=== PATIENT | female | born 1995 | race Caucasian/White ===

== ENCOUNTER → 2020-06-03 | Day surgery (SDC) | payer OTHER ==
[2020-06-02 13:09] LABS: Hematocrit 18.7 % (36.0-45.0)
--- OUTSIDE RECORDS SUMMARY | 2020-06-03 08:31 | XMS REPORT | Clinical Summary ---
:1995 Author Organization [facility] Address [address] [place] [address] Care Team Providers Name Role Phone Celina Barragan MD Primary Care Provider [phone] Allergies No Known Allergies Medications Medication Sig Dispensed Refills Start Date End Date Status predniSONE (DELTASONE) Take 10 mg by 0 Active 10 mg tablet mouth daily. ramipril (ALTACE) 5 MG Take 5 mg by 0 Active capsule mouth daily. aspirin (ECOTRIN) 81 MG Take 81 mg by 0 Active enteric coated tablet mouth daily. esomeprazole (NexIUM) 20 Take 20 mg by 0 Active MG capsule mouth daily before breakfast. carvedilol (COREG) 3.125 Take 3.125 mg by 0 Active MG tablet mouth 2 (two) times a day with meals. hydroxychloroquine Take 200 mg by 0 Active (PLAQUENIL) 200 mg mouth daily. tablet mirtazapine (REMERON) 15 Take 15 mg by 0 Active MG tablet mouth nightly. For appetite stimulation Active Problems Problem Noted Date Dialysis AV fistula malfunction, subsequent encounter 05/12/2019 Overview: Added automatically from request for jony rafi [id number] Swelling of joint of upper arm, left 05/08/2019 Overview: Added automatically from request for jony rafi [id number] End-stage renal disease 01/21/2019 Overview: Added automatically from request for jony rafi [id number] Pre-transplant evaluation for kidney transplant 2018 Lupus (systemic lupus erythematosus) 01/01/2019 Encounters Date Type Specialty Care Team Description 12/29/2019 Documentation Transplant Vi Rivas RN 12/29/2019 Telephone Transplant Tanika Metz Kidney Eval Status (09:02am Called pt to se e is she wanted to move forward with kidney eval. Meliton reid stated her Cardiologis t at [facility] told her to hol d off on kidney eval sin ce she is having issues w ith her heart. ) after 06/03/2019 Immunizations Name Administration Dates Next Due Pneumococcal Conjugate 13-Valent 05/11/2019 Family History Medical History Relation Name Comments Hypertension Father Other Father Relation Name Status Comments Father Alive Mother Alive Social History Tobacco Use Types Packs/Day Years Used Date Never Smoker Smokeless Tobacco: Never Used Alcohol Use Drinks/Week oz/Week Comments No Alcohol Habits Answer Date Recorded How often do you have a drink containing alcohol? Never 02/02/2019 How many drinks containing alcohol do you have on a typical Not asked day when you are drinking? How often do you have six or more drinks on one occasion? No t asked Sex Assigned at Date Recorded Not on file Job Start Date Occupation Industry Not on file Not on file Not on file Travel History Travel Start Travel End No recent travel history available. Last Filed Vital Signs Not on file Plan of Treatment Health Maintenance Due Date Last Done Comments CHLAMYDIA SCREENING 2013 INFLUENZA VACCINE 05/27/2020 07/16/2017, 2016, 2011, Additional history exists CERVICAL CANCER SCREENING 04/06/2022 04/06/2019, 01/19/2019 Results Not on fileafter 06/03/2019 Insurance Payer Benefit Plan / Subscriber ID Effective Dates Phone Addre ss Type Group MEDICAID MEDICAID xxxxxxxxx 2017-Present Me dicaid MEDICARE MEDICARE PART A xxxxxxxxxxx 2016-Present [facility], [place] Medicare AND B Ashley Lewis Transplant Self 1995 [id number] (Home) [place] [id number] Advance Directives For more information, please contact: [phone] Type Date 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
--- OUTSIDE RECORDS SUMMARY | 2020-06-03 08:32 | XMS REPORT | Clinical Summary ---
:1995 Author Organization [facility] Address [address] [place] [address] Care Team Providers Name Role Phone Unavailable Primary Care Provider Unavailable Allergies No Known Allergies Medications Medication Sig Dispensed Refills Start Date End Date Status aspirin 81 MG EC tablet Take 81 mg by 0 Active mouth daily. azaTHIOprine (IMURAN) 50 Take 50 mg by 0 Active mg tablet mouth daily. bumetanide (BUMEX) 2 MG Take 2 mg by 0 Active tablet mouth 2 (two) times daily. carvedilol (COREG) 6.25 Take 6.25 mg by 0 Active MG tablet mouth 2 (two) times daily with breakfast and dinner. FA-vit Take by mouth. 0 Activ e Bcomp&M-zsoujavk-popy (FOLIC ACID-VITAMIN B COMPLEX-VITAMIN [id number]) 3-70-15 mg-mcg-mg Tab docusate sodium (COLACE) Take 100 mg by 0 Active 100 MG capsule mouth 2 (two) times daily. lisinopril Take 2.5 mg by 0 Acti ve (PRINIVIL,ZESTRIL) 2.5 MG mouth daily. tablet hydroxychloroquine Take by mouth 0 Active (PLAQUENIL) 200 mg tablet daily. meloxicam (MOBIC) 15 MG Take 15 mg by 0 Active tablet mouth daily. mycophenolate (CELLCEPT) Take by mouth 2 0 Active 250 mg capsule (two) times daily. prednisoLONE (PEDIAPRED) Take 1 mg/kg by 0 Active 5 mg/5 mL syrup mouth daily. lansoprazole (PREVACID) Take 15 mg by 0 Active 15 MG capsule mouth 2 (two) times daily. ranitidine (ZANTAC) 150 Take 150 mg by 0 Active MG capsule mouth 2 (two) times daily. sevelamer (RENVELA) 800 Take 800 mg by 0 Active mg tablet mouth 3 (three) times daily with meals. Active Problems Not on file Social History Tobacco Use Types Packs/Day Years Used Date Never Smoker Sex Assigned at Date Recorded Not on file Job Start Date Occupation Industry Not on file Not on file Not on file Travel History Travel Start Travel End No recent travel history available. Last Filed Vital Signs Not on file Plan of Treatment Health Maintenance Due Date Last Done Comments CERVICAL CANCER SCREENING PAP ONLY (Age 21-65) 08/05/2018 INFLUENZA VACCINE (#1) 2020 Results Not on fileafter 06/03/2019
--- OUTSIDE RECORDS SUMMARY | 2020-06-03 08:33 | XMS REPORT | Continuity of Care Document ---
:1995 Author Organization [facility] Address [address] [place] [address] Care Team Providers Name Role Phone Allyson Barragan MD Primary Care Physician [phone], Adult Infusion Nurse Attending Clinician Unavailable Meredith Shah MD Attending Clinician Rob FAGAN Attending Clinician Unavailable Isaías Attending Clinician Unavailable Payers Payer Name Policy Policy Number Effective Expiration Source Type Date Date MEDICAIDMEDICAIDxxxxx xxxxxxxxx 2017 Mendel cintron xxxx12-Present 00:00:00 Met marx Medicaid MEDICAREMEDICARE PART xxxxxxxxxxx 2016 Merlin faulkner A AND 00:00:00 [place] Bxxxxxxxxxxx3- [place] [place] Problems Condition Condition Condition Status Onset Resolution Last Treating Co mments Source Name Details Category Date Date Treatment Clinician Date Dialysis Dialysis Disease Active Overview: Merlin faulkner AV fistula AV fistula 05-12 Added Me [place] malfunctio malfunctio 00:00: automatic st n, n, 00 ally from subsequent subsequent request encounter encounter for surgery [id number] Swelling Swelling Disease Active Overview: Merlin faulkner of joint of joint 05-08 Added Method i of upper of upper 00:00: automatic st arm, left arm, left 00 ally from request for surgery [id number] End-stage End-stage Disease Active Overview: [place] renal renal 3-28 Added Methodi disease disease 00:00: automatic st 00 ally from request for surgery Pre-transp Pre-transp Disease Active [place] lant lant 3-26 Methodi evaluation evaluation 00:00: st for kidney for kidney 00 transplant transplant Lupus Lupus Disease Active [place] (systemic (systemic 3-08 Meth bereket lupus lupus 00:00: st erythemato erythemato 00 justo) justo) Allergies, Adverse Reactions, Alerts This patient has no known allergies or adverse reactions. Family History Family Member Diagnosis Comments Start Date Stop Date Source Natural father Hypertension [place] Mandaen Natural father Other [facility] thodist Social History Social Habit Start Date Stop Date Quantity Comments Source History [facility] Meth odist Alcohol Std Drinks History [facility] Meth odist Alcohol Binge Sex Assigned At [facility] ethodist Alcohol intake 2019-05-20 2019-05-20 Current [facility] thodist 00:00:00 00:00:00 non-drinker of alcohol (finding) History [facility] 2019-02-02 2019-02-02 1 [place] Meth odist Alcohol Frequency 00:00:00 00:00:00 Smoking Status Start Date Stop Date Source Never smoker [place] Methodis t Medications Ordered Filled Start Stop Current Ordering Indication Dosage Frequency Signature Comments Components Source Medication Medication Date Date Medication? Clinician (SIG) Name Name predniSONE Yes 10mg QD Take 10 mg [place] (DELTASONE) 7-24 by mouth Meth bereket 10 mg 10:39: daily. st tablet 02 ramipril Yes 5mg QD Take 5 mg [place] (ALTACE) 5 7-24 by mouth Metho di MG capsule 10:39: daily. st 02 aspirin Yes 81mg QD Take 81 mg [place] (ECOTRIN) 7-24 by mouth Method i 81 MG 10:39: daily. st enteric 02 coated tablet esomeprazol Yes 20mg QD Take 20 mg [facility]rell e (NexIUM) 7-24 by mouth Metho di 20 MG 10:39: daily st capsule 02 before breakfast. carvedilol Yes 3.125mg Q.5D Take 3.125 [place] (COREG) 7-24 mg by Methodi 3.125 MG 10:39: mouth 2 st tablet 02 (two) times a day with meals. hydroxychlo 0 Yes 200mg QD Take 200 [place] roquine 7-24 mg by Methodi (PLAQUENIL) 10:39: mouth st 200 mg 02 daily. tablet mirtazapine Yes 15mg QD Take 15 mg [facility] (REMERON) 7-24 by mouth Method i 15 MG 10:39: nightly. st tablet 02 For appetite stimulatio n hydroxychlo 2016-0 Yes QD Take by [facility] roquine 9-21 [facility] - (PLAQUENIL) 11:59: daily. Medi lai 200 mg 16 Center tablet meloxicam Yes 15mg QD Take [address] (MOBIC) 15 9-21 by mouth [facility] - MG tablet 11:59: daily. Medica l 16 Center mycophenola 2017-0 Yes Q.5D Take by [facility] te 9-21 mouth 2 [facility] - (CELLCEPT) 11:59: (two) Medica l 250 mg 16 times Center capsule daily. prednisoLON 2017-0 Yes 1mg/kg QD Take [address] 9-21 mg/kg by [facility] - (PEDIAPRED) 11:59: mouth Medic al 5 mg/5 mL 16 daily. Center syrup lansoprazol 20170 Yes 15mg Q.5D Take [address] e 9-21 by mouth 2 [facility] - (PREVACID) 11:59: (two) Medica l 15 MG 16 times Center capsule daily. ranitidine 2017-0 Yes 150mg Q.5D Take [address] (ZANTAC) 9-21 mg by [facility] - 150 MG 11:59: mouth 2 Medical capsule 16 (two) Center times daily. sevelamer 2017-0 Yes 800mg Take [address] (RENVELA) 9-21 mg by [facility] - 800 mg 11:59: mouth 3 Medical tablet 16 (three) Center times daily with meals. azaTHIOprin 2017-0 Yes 50mg QD Take [address] e (IMURAN) 9-21 by mouth [facility] - 50 mg 11:59: daily. Medical tablet 15 Center bumetanide 2017-0 Yes 2mg Q.5D Take [address] (BUMEX) 2 9-21 by mouth 2 Luke s - MG tablet 11:59: (two) Medical 15 times Center daily. carvedilol Yes 6.25mg Take 6.[address] (COREG) 9-21 mg by [facility] - 6.25 MG 11:59: mouth 2 Medical tablet 15 (two) Center times daily with breakfast and dinner. FA-vit Yes Take by [facility] Bcomp&C-corinne 9-21 mouth. [facility] - enium-zinc 11:59: Medical (FOLIC 15 Center ACID-VITAMI N B COMPLEX-VIT NOVA C-SELENIUM- ZINC) 3-70-15 mg-mcg-mg Tab docusate Yes 100mg Q.5D Take [address] sodium 9-21 mg by [facility] - (COLACE) 11:59: mouth 2 Medica l 100 MG 15 (two) Center capsule times daily. lisinopril Yes 2.5mg QD Take 2.[address] (PRINIVIL,Z 9-21 mg by [facility] - ESTRIL) 2.5 11:59: mouth Medic al MG tablet 15 daily. Center aspirin 81 Yes 81mg QD Take [address] MG EC 9-21 by mouth [facility] - tablet 11:52: daily. [place] [address] Center Immunizations Ordered Immunization Filled Immunization Date Status Commen ts Source Name Name Pneumococcal 2019-05-11 Completed [place] Conjugate 13-Valent 00:00:00 Metho dist Procedures This patient has no known procedures. Plan of Care Planned Activity Planned Date Details Comments Source Future Scheduled 2022-04-06 Screening for [facility] thodist Test 00:00:00 malignant neoplasm of cervix (procedure) [code = 553687182] Future Scheduled 2020-06-[address] [facility] - Test 00:00:00 (#1) [code = [facility] INFLUENZA VACCINE (#1)] Future Scheduled 2020-05-27 INFLUENZA VACCINE [place] [facility] Test 00:00:00 [code = INFLUENZA VACCINE] Future Scheduled 2018-08-[address] [facility] - Test 00:00:00 malignant neoplasm Medical C enter of cervix (procedure) [code = 876763085] Future Scheduled 2013 CHLAMYDIA SCREENING [place] [facility]andaen Test 00:00:00 [code = CHLAMYDIA SCREENING] Encounters Start End Encounter Admission Attending Care Care Encounter Source Date/Time Date/Time Type Type Clinicians Facility Department ID 2020-05-31 2020-05-[address] [facility] [id number] 12:37:47 13:37:47 Visit Adult SPECIALTY [id number] Infusion CARE [id number] Nurse CENTER AT [id number] [place] [address] [place] [address] 2020-05-30 2020-05-30 Patient Pablo HIZENON [id number] 00:00:00 00:00:00 Secure Msg Harrison Harper MULTISPEC [id number] IALTY [id number] CENTER [id number] [facility] Results This patient has no known results.
== END ==
LOC: BLT 08:18
PROVIDERS: ATTEND Internal Medicine
PROC: 30233N1 Transfusion of Nonautologous Red Blood Cells into Peripheral Vein, Percutaneous Approach (ICD-10-PCS; principal; 2020-06-03)
DX: N18.6 End stage renal disease (principal); D63.1 Anemia in chronic kidney disease
CPT/HCPCS: 36415; 86900; 86850; 86901; 85018; 85014; 36430; P9016 ×2

== ENCOUNTER 2020-11-28 11:29 | Day surgery (SDC) | payer OTHER ==
--- OUTSIDE RECORDS SUMMARY | 2020-11-28 11:31 | XMS REPORT | Clinical Summary ---
:1995 Author Organization [facility] Address [address] [place] [address] Care Team Providers Name Role Phone Celina Barragan MD Primary Care Provider [phone] Allergies No Known Active Allergies Medications Medication Sig Dispensed Refills Start [...] Overview: Added automatically from request for jony mckee [id number] Swelling of joint of upper arm, left 05/08/2019 Overview: Added automatically from request for jony mckee [id number] End-stage renal disease 01/21/2019 Overview: Added automatically from request for jony mckee [id number] Pre-transplant evaluation for kidney transplant 2018 Lupus (systemic lupus erythematosus) 01/01/2019 Encounters Date Type Specialty Care Team Description 12/29/2019 Documentation Transplant Vi Rivas RN 12/29/2019 Telephone Transplant Tanika Metz Kidney Eval Status (09:02am Called pt to e is she wanted to move forward with kidney eval. Pa tient stated her Cardiologis t at [facility] told her to hol d off on kidney eval sin ce she is having issues w ith her heart. ) after 11/28/2019 Immunizations Name Administration Dates Next Due Pneumococcal Conjugate 13-Valent 05/11/2019 Surgical History Surgery Date Site/Laterality Comments RENAL BIOPSY 10/27/2015 - [facility] 10/26/2016 Center DIALYSIS FISTULA CREATION Left Left u pper arm TUNNELED VENOUS CATHETER PLACEMENT CENTRAL VENOUS CATHETER REMOVAL AV FISTULA REPAIR REPLACEMENT TOTAL KNEE 10/27/2013 - Left 10/26/2014 INSERTION, CATHETER, 02/09/2019 Abdomen/N/A Procedure: Laparoscopic DIALYSIS, PERITONEAL, peritoneal dialysis LAPAROSCOPIC catheter placeme nt. ; Surgeon: Miguel Angel Nixon MD; Location: [facility] Main OR; S ervice: General; Latera lity: N/A; INSERTION, CATHETER, FOR 05/10/2019 reposti tion PERITONEAL DIALYSIS INSERTION, CATHETER, 05/10/2019 Abdomen/N/A Procedure: Laparoscopic DIALYSIS, PERITONEAL, reposition ing of LAPAROSCOPIC peritoneal dialy sis catheter and all other indicated proced ures; Surgeon: Miguel Angel Nixon MD; Location: [facility] OR; S ervice: General; Latera lity: N/A; VENOGRAM, EXTREMITY 05/11/2019 Left Procedure: L eft upper extremity fistul ogram; Surgeon: Juan C Miller MD; Location: [facility] OR; S ervice: Vascular; Later ality: Left; CREATION, AV FISTULA 05/14/2019 Left Procedure: LEFT ARM AV FISTULA REVISION ; Surgeon: Juan C Miller MD; Location: [facility] OR; S ervice: Vascular; Later ality: Left; LIGATION OR BANDING, 05/18/2019 Arm Upper/Left Procedure: LEFT ARM AV FISTULA, AV FISTULA LIGATION ; Surgeon: Juan C Miller MD; Location: [facility] OR; S ervice: Vascular; Later ality: Left; Medical History Medical History Date Comments Lupus (HCC) Anemia ESRD (end stage renal disease) on dialysis (HCC) History of transfusion 2016 CHF (congestive heart failure) (HCC) GERD (gastroesophageal reflux disease) Exercise tolerance finding CAN WALK 1 HI LE W/O PROBS Renal failure ON PERITONEAL DIALYS IS Family History Medical History Relation Name Comments [...] Assigned at Date Recorded Not on file Last Filed Vital Signs Not on file Plan of Treatment Health Maintenance Due Date Last Done Comments CHLAMYDIA SCREENING 2013 COVID-19 VACCINE (1 of 2) 2013 INFLUENZA VACCINE 05/27/2020 07/16/2017, 2016, 2013, Additional history exists CERVICAL CANCER SCREENING 04/06/2022 04/06/2019, 01/19/2019 Results Not on fileafter 11/28/2019 Insurance Payer Benefit Plan / Subscriber ID Effective Dates Phone Addre ss Type Group MEDICAID MEDICAID [id number] 2017-Present [place] dicaid MEDICARE MEDICARE PART A [id number] 2016-Present [facility], [place] Medicare AND B Ashley Lewis Transplant Self 1995 [address] (Home) [place] [address] Advance Directives For more information, please contact: [phone] Type Date Recorded Patient Transfusion Nurse Explanati on Advance Directives, Living Will 05/14/2019 8:13 AM and Medical Power of Hogshead Wrecker
--- OUTSIDE RECORDS SUMMARY | 2020-11-28 11:31 | XMS REPORT | Clinical Summary ---
:[address] [facility] Address [address] [place] [address] Care Team Providers Name Role Phone Unavailable [...] FA-vit Take by mouth. 0 Activ e Bcomp&G-poegbjpu-pbuq (FOLIC ACID-VITAMIN B COMPLEX-VITAMIN [id number]) 3-70-15 mg-mcg-mg Tab docusate sodium (COLACE) Take [...] Signs Not on file Plan of Treatment Not on file Results Not on fileafter 11/28/2019
--- OUTSIDE RECORDS SUMMARY | 2020-11-28 11:31 | XMS REPORT | Continuity of Care Document ---
:1995 Author Organization [facility] t Address [address] [place] [address] Care Team Providers Name Role Phone Allyson Barragan MD Primary Care Physician [phone] Nurse, Anticoag Attending Clinician Unavailable Luis Angel Givens MD Attending Clinician Doctor Unassigned, Name Attending Clinician Unavailable Rob FAGAN Attending Clinician Unavailable Isaías Attending Clinician Unavailable Payers Payer Name Policy Type Policy Effective Date Expiration Date Sour ce Number MEDICAIDMEDICAIDxxxxx [id number] 2017 [place] cintron [id number] 2016- 00:00:00 Met marx Medicaid MEDICAREMEDICARE PART [id number] 2016 Merlin faulkner A AND 00:00:00 Zoroastrianism [id number] 2016- [place] [place] Problems Condition Condition Condition Status Onset Resolution Last Treating Co mments Source Name Details Category Date Date Treatment Clinician Date Dialysis Dialysis Disease Active Overview: Merlin faulkner AV fistula AV fistula 05-12 Added Me [place] malfunctio malfunctio 00:00: automatic st n, n, 00 ally from subsequent subsequent request encounter encounter for surgery [id number] Swelling Swelling Disease Active Overview: [place] of joint of joint 05-08 Added Method i of upper of upper 00:00: automatic st arm, left arm, left 00 ally from request for surgery [id number] End-stage End-stage Disease Active Overview: [place] renal renal 01-21 Added Methodi disease disease 00:00: automatic st 00 ally from request for surgery Pre-transp Pre-transp Disease Active [place] lant lant 01-19 Methodi evaluation evaluation 00:00: st for kidney for kidney 00 transplant transplant Lupus Lupus Disease Active [place] (systemic (systemic 01-01 Meth bereket lupus lupus 00:00: st erythemato erythemato 00 justo) justo) Allergies, Adverse Reactions, Alerts This patient has no known allergies or adverse reactions. Family History Family Member Diagnosis Comments Start Date Stop Date Source Natural father Hypertension [place] Zoroastrianism Natural father Other [facility] thodist Social History Social Habit Start Date Stop Date Quantity Comments Source History [facility] Meth odist Alcohol Std Drinks History [facility] Meth odist Alcohol Binge Sex Assigned At [facility] Tobacco use and 2019-05-20 2019-05-20 Never used [facility] ethodist exposure 00:00:00 00:00:00 Alcohol intake 2019-05-20 2019-05-20 Current [facility] thodist 00:00:00 00:00:00 non-drinker of alcohol (finding) History SDOH 2019-02-02 2019-02-02 1 [place] Meth odist Alcohol Frequency 00:00:00 00:00:00 Smoking Status Start Date Stop Date Source Never smoker [facility] Medications Ordered Filled Start Stop Current Ordering [...] daily st capsule 02 before breakfast. carvedilol 2019-0 Yes 3.125mg Q.5D Take 3.125 [facility] (COREG) 7-24 mg by Methodi 3.125 MG 10:39: mouth 2 st tablet 02 (two) times a day with meals. hydroxychlo 20190 Yes 200mg QD Take 200 [place] roquine 7-24 mg by Methodi (PLAQUENIL) 10:39: mouth st 200 mg 02 daily. tablet mirtazapine 2019 Yes 15mg QD Take 15 mg [facility] (REMERON) 7-24 by mouth Method i 15 MG 10:39: nightly. st tablet 02 For appetite stimulatio n hydroxychlo 2016- Yes QD Take by [facility] roquine [...] mg 16 times Center capsule daily. prednisoLON 2017 Yes 1mg/kg QD Take [address] 9-21 mg/kg by [facility] - (PEDIAPRED) 11:59: mouth Medic al 5 mg/5 mL 16 daily. Center syrup lansoprazol 2017-0 Yes 15mg Q.5D Take 15 mg [facility] [...] 11:59: daily. Medical tablet 15 Center bumetanide Yes 2mg Q.5D Take 2 mg CH [...] mouth Medic al MG tablet 15 daily. [place] aspirin 81 Yes 81mg QD Take [address] MG EC 9-21 by mouth [facility] - tablet 11:52: daily. [address] Immunizations Ordered Immunization Filled Immunization Date Status Commen ts Source Name Name Pneumococcal 2019-05-11 Completed [place] Conjugate 13-Valent 00:00:00 Metho dist Procedures This patient has no known procedures. Plan of Care Planned Activity Planned Date Details Comments Source Future Scheduled 2022-04-06 Screening for [place] Me thodist Test 00:00:00 malignant neoplasm of cervix (procedure) [code = 658749060] Future Scheduled 2020-05-27 INFLUENZA VACCINE [place] Test 00:00:00 [code = INFLUENZA VACCINE] Future Scheduled 2013 CHLAMYDIA SCREENING [place]astrianism Test 00:00:00 [code = CHLAMYDIA SCREENING] Future Scheduled 2013 COVID-19 VACCINE (1 [place]oroastrianism Test 00:00:00 of 2) [code = COVID-19 VACCINE (1 of 2)] Encounters Start End Encounter Admission Attending Care Care Encounter Source Date/Time Date/Time Type Type Clinicians Facility Department ID 2020-11-23 2020-11-23 Nurse Nurse, [facility] [id number] 13:48:17 14:08:17 Visit Hoda LEW [id number] [place] [id number] CENTER [id number] [facility] 2020-11-20 2020-11-20 Office Chon RUST [id number] 15:26:30 16:28:32 Visit Saad CHOE [id number] [facility] [id number] CENTER AT [id number] [place] [facility] 2020-11-20 2020-11-20 Orders Doctor CHONG [id number] 00:00:00 00:00:00 Only Unassigned, AJAY [id number] [place] [facility] [id number] Results This patient has no known results.
--- OUTSIDE RECORDS SUMMARY | 2020-11-28 11:31 | XMS REPORT | Summary of Care ---
:1995 Author Organization [facility] - [facility] Address [address] [place] [address] Care Team Providers Name Role Phone Ronni Flood MD Primary Care Provider Encounter Details Date Type Department Care Team Description 09/05/2020 Abstract [facility] Transplant- Jos Joe phillips MD [facility] Multispecialty [facility] [address] [facility] [address] [place] [address] Entrance B [phone] [place], [place] [phone] Allergies No Known Allergiesdocumented as of this encounter (statuses as of 09/05/2020) Medications Medication Sig Dispensed Refills Start Date End Date Status aspirin 81 mg EC tablet Take 81 mg by 0 Active mouth daily. Cholecalciferol, Vitamin Take by mouth. 0 Active D3, (VITAMIN D3) 5,000 unit tablet omeprazole (PRILOSEC OTC) Take 1 tablet 90 tablet 0 12/02/2019 Active 20 mg tabletIndications: by mouth daily. SLE (systemic lupus erythematosus related syndrome) ramipril 10 mg capsule Take 10 mg by 0 Active mouth daily. warfarin 2.5 mg Take as 60 tablet 3 04/24/2020 Act saida tabletIndications: Other directed by acute pulmonary embolism [facility] without acute cor based on INR pulmonale results. carvediloL 25 mg tablet Take 1 tablet 60 tablet 5 05/08/2020 Active by mouth 2 (two) times daily with meals. FUROSEMIDE 40 mg TAKE 1 AND 1/2 60 tablet 0 06/21/2020 Active tabletIndications: ESRD TABLETS BY on peritoneal dialysis MOUTH TWICE DAILY mirtazapine 7.5 mg Take 1 tablet 30 tablet 3 07/20/2020 Active tabletIndications: by mouth at Decreased appetite bedtime. predniSONE 1 mg Take 2 tablets 60 tablet 1 08/04/2020 Active tabletIndications: SLE by mouth daily. (systemic lupus erythematosus related syndrome) azaTHIOprine 50 mg Take 1 tablet 90 tablet 1 08/04/2020 Active tabletIndications: SLE by mouth daily. (systemic lupus erythematosus related syndrome) hydrOXYchloroQUINE 200 mg Take 1 tablet 90 tablet 1 08/04/2020 Active tabletIndications: SLE by mouth daily. (systemic lupus erythematosus related syndrome) documented as of this encounter (statuses as of 09/05/2020) Active Problems Problem Noted Date Chronic combined systolic and diastolic heart failure 11/06/2019 Shortness of breath 11/06/2019 Hypercoagulable state 07/04/2019 Anticoagulation management encounter 06/29/2019 Other acute pulmonary embolism without acute cor pulmo nale 06/25/2019 Right shoulder tendonitis 06/18/2019 Pulmonary embolism 06/06/2019 Pneumonia 06/06/2019 ESRD on peritoneal dialysis 05/01/2019 Hyperkalemia 02/26/2019 Positive double stranded DNA antibody test 01/08/2018 Lupus nephritis 01/08/2018 Systemic lupus erythematosus 01/08/2018 Chronic anemia 09/05/2017 Acute on chronic systolic heart failure 08/19/2017 shelter (current) use of systemic steroids 7 documented as of this encounter (statuses as of 09/05/2020) Resolved Problems Problem Noted Date Resolved Date Symptomatic anemia 10/23/2019 11/07/2019 Chronic right shoulder pain 06/17/2019 06/19/2019 Chest pain 06/11/2019 06/19/2019 Decreased appetite 06/07/2019 06/19/2019 Breast swelling 05/01/2019 05/04/2019 Elevated brain natriuretic peptide (BNP) level 05/01/2019 06/02/2019 Venous stenosis of left upper extremity 08/04/2018 06/19/2019 Overview: Added automatically from request for jony mckee [id number] Fever 05/20/2018 06/02/2019 ESRD (end stage renal disease) 09/05/2017 9 SLE (systemic lupus erythematosus related syndrome) 09/05/2006/02/2019 Breast pain in female 08/19/2017 05/04/2019 Chest pain at rest 08/18/2017 06/02/2019 SLE (systemic lupus erythematosus) 06/12/201706/02 ESRD (end stage renal disease) 06/12/2017 7 Long-term use of high-risk medication 06/12/2017 Elevated liver function tests 06/12/2017 06/02/2019 Dialysis patient 05/07/2017 06/02/2019 Dialysis complication 03/11/2017 06/02/2019 Symptomatic anemia 01/01/2017 06/02/2019 Left knee pain 07/27/2015 06/02/2019 Systemic lupus erythematosus 11/09/2013 06/02/2019 Nephritis 11/09/2013 05/09/2017 Overview: Class IV lupus nephritis, HTN, Proteinur ia documented as of this encounter (statuses as of 09/05/2020) Immunizations Name Administration Dates Next Due HPV 02/12/2012 Hep B, Adol or Pedi Dosage 07/21/2017, 03/26/2017 Influenza Virus Vaccine 07/16/2017, 2016 Influenza Virus Vaccine (3+ yrs) 08/04/2014, 08/06/2013, 04/2012, 08/13/2011 Influenza Virus Vaccine Quad IM 3+ YRS 09/19/2016, 5 Meningococcal Polysaccharide (groups 03/31/2018 A, C, Y and W-135) conjugate vaccine (MCV4P) PPD (TB) 11/29/2016 Pneumococcal Polysaccharide, PPSV23 2016, 06/08/2015 (PNEUMOVAX) documented as of this encounter Social History Tobacco Use Types Packs/Day Years Used Date Never Smoker Smokeless Tobacco: Never Used Alcohol Use Drinks/Week oz/Week Comments No 0 Standard drinks or equivalent 0.0 Education Answer Date Recorded What is the highest level of school you have Some college, n o degree 05/01/2019 completed or the highest degree you have received? Financial Resource Strain Answer Date Recorded How hard is it for you to pay for the very basics like Somew hat hard 05/01/2019 food, housing, medical care, and heating? Food Insecurity Answer Date Recorded Within the past 12 months, you worried that your food would Never true 05/01/2019 run out before you got money to buy more. Within the past 12 months, the food you bought just didn't N ever true 05/01/2019 last and you didn't have money to get more. Transportation Needs Answer Date Recorded In the past 12 months, has lack of transportation kept you f rom No 05/01/2019 medical appointments or from getting medications? In the past 12 months, has lack of transportation kept you f rom No 05/01/2019 meetings, work, or getting things needed for daily living? 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 documented as of this encounter Last Filed Vital Signs Not on filedocumented in this encounter Plan of Treatment Date Type Specialty Care Team Description 11/03/2020 Office Visit Orthopedic Surgery Jenifer Sanz, [address] [address] [phone] 12/04/2020 Office Visit Obstetrics & Gynecology Natasha Pelaez PA-C [address] [place], [place] [phone] 12/06/2020 Nurse Visit Infusion Therapy Wu Trejo, [address] [address] [phone] 2 Korin Adult Infusion Nurse 01/05/2021 Office Visit Rheumatology Mir Menjivar MD [address] [place] [address] [phone] Health Maintenance Due Date Last Done Comments VARICELLA VACCINES (1 of - 1998 2-dose childhood series) MENINGOCOCCAL B VACCINES (1 of - 2007 Risk Bexsero 2-dose series) HPV VACCINES (2 - 2-dose series) 08/13/2012 02/12/2012 DTaP,Tdap,and Td Vaccines (1 - 2016 Tdap) PNEUMOCOCCAL 0-64 YEARS COMBINED 2017 2016, SERIES (3 of 3 - PCV13) INFLUENZA VACCINE (#1) 2020 07/16/2017, 09/19/2016, 2016, Additional history exists CHLAMYDIA SCREENING 12/03/2020 12/03/2019 Depression Screening 02/13/2021 02/14/2020 PAP SMEAR 12/03/2022 12/03/2019 documented as of this encounter Results Not on filedocumented in this encounter Insurance Payer Benefit Plan / Subscriber ID Effective Phone Address T e Group Dates [facility] [id number] 2020-Pres [facility] - HEALTHCARE ent Adv HM O MANAGED DUAL COMPLETE MEDICARE HMO [facility] MEDICAID OF [id number] 2017-Pre [phone] [address] [facility] [place] sent [phone] documented as of this encounter Advance Directives Name Relationship Healthcare Agent Communication Relationship Tony Lewis Father [facility] Health Care Agent (Mobile) Philly Joshua Grandparent [facility] Health Care Agent [place] Joshua Sibling [facility] Health Care Agent (Mobile)
--- OUTSIDE RECORDS SUMMARY | 2020-11-28 11:32 | XMS REPORT | Summary of Care ---
:1997 Author Organization [facility] Address [address] [place] [address] Care Team Providers Name Role Phone Ronni Flood MD Primary Care Provider Reason for Visit Reason Onset Date Comments Refill Request 09/07/2020 Encounter Details Date Type Department Care Team Description 09/07/2020 Refill [facility] Internal Doctor Unassigned, N o Refill Request [facility] [address] [facility] [place] [address] [facility] [address], [address] [place] [address] Allergies No Known Allergiesdocumented as of this encounter (statuses as of 09/12/2020) Medications Medication Sig Dispensed Refills Start Date [...] acute cor based on INR pulmonale results. 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 7 documented as of this encounter (statuses as of 09/12/2020) Resolved Problems Problem Noted Date Resolved Date Symptomatic anemia 10/23/2019 11/07/2019 Chronic right shoulder pain 06/17/2019 06/19/2019 Chest pain 06/11/2019 06/19/2019 Decreased appetite 06/07/2019 06/19/2019 Breast swelling 05/01/2019 05/04/2019 Elevated brain natriuretic peptide (BNP) level 05/01/2019 06/02/2019 Venous stenosis of left upper extremity 08/04/2018 06/19/2019 Overview: Added automatically from request for jony mckee [id number] Fever 05/20/2018 06/02/2019 ESRD (end stage renal [...] as of this encounter (statuses as of 09/12/2020) Immunizations Name Administration Dates Next Due HPV [...] contact Unable to assess 09/04/2020 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 documented as of this encounter Last Filed Vital Signs Not on filedocumented in this encounter Miscellaneous Notes Telephone Encounter - Melissa Gee RN - 09/12/2020 1:26 PM CST Refill Request UBALDO :08/04/20 (RTC 4-5 m) NOV: 01/06/20 Completed Labs: 08/04/20 Dx: SLE Dx Code: M32.9 Disp Refills Start hydrOXYchloroQUINE 200 mg tablet 90 tablet 1 08/04/2020 Sig: Take 1 tablet by mouth daily. Disp Refills Start predniSONE 1 mg tablet 60 tablet 1 08/04/2020 Sig: Take 2 tablets by mouth daily. Too soon to refill NESS PERFORMANCE MANAGER documented in this encounter Plan of Treatment Date Type Specialty Care Team Description 12/04/2020 Office Visit Obstetrics & Gynecology Natasha Pelaez PA-C [address] [place] [address] [phone] 12/06/2020 Nurse Visit Infusion Therapy Wu Trejo FNP [address] [place] [address] [phone] Korin [place] Adult Infusion Nurse 01/05/2021 Office Visit Rheumatology Mir Menjivar MD [address] [place], [place] [address] [place], [place] [phone] Health Maintenance Due Date Last Done Comments VARICELLA VACCINES (1 of 2 - 1998 2-dose childhood series) MENINGOCOCCAL B VACCINES (1 of 2 - 2007 Risk Bexsero 2-dose series) HPV [...] Results Not on filedocumented in this encounter Visit Diagnoses Diagnosis SLE (systemic lupus erythematosus relate d syndrome) Systemic lupus erythematosus documented in this encounter Insurance Payer Benefit Plan / Subscriber ID Effective Phone Address T ype Group Dates [facility] [id number] 2020-Pres [facility] - HEALTHCARE ent Adv HM O MANAGED DUAL COMPLETE MEDICARE HMO [facility] MEDICAID OF [id number] 2017-Pre [phone] Medi caid [place] sent [phone] [place] [address] documented as of this encounter Advance Directives Name Relationship Healthcare Agent Communication Relationship Tony Lewis Father [facility] Health Care [phone] Agent (Mobile) Philly Lewis Grandparent [facility] Health Care Agent Carlos Lewis Sibling [facility] Health Care Agent (Mobile)
--- OUTSIDE RECORDS SUMMARY | 2020-11-28 11:32 | XMS REPORT | Summary of Care ---
:1997 Author Organization [facility] Address [address] [place] [address] Care Team Providers Name Role Phone Ronni Flood MD Primary Care Provider Reason for Visit Reason Onset Date Comments Refill Request 09/09/2020 Encounter Details Date Type Department Care Team Description 09/09/2020 Refill [facility] Internal Doctor Unassigned, N o Refill Request Medicine Name [facility] on [address] [facility] [place] [address] [facility] Zeny [address], [address] [place] [address] Allergies No Known Allergiesdocumented [...] mouth daily. (systemic lupus erythematosus related syndrome) carvediloL 25 mg tablet Take 1 tablet 60 tablet 5 09/08/2020 Active by mouth 2 (two) times daily with meals. 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 documented as of this encounter Last Filed Vital Signs Not on filedocumented in this encounter Miscellaneous Notes Telephone Encounter - Melissa Gee RN - 09/12/2020 1:38 PM CSTDuplicate request documented in this encounter Plan of Treatment Date Type Specialty Care Team Description 12/04/2020 Office Visit Obstetrics & Gynecology Natasha Pelaez PA-C [address] [place] [phone] 12/06/2020 Nurse Visit Infusion Therapy Kandi on, Wu, FINANCE BROKER [address] [place] [address] [phone] 2 Korin Adult Infusion Nurse 01/05/2021 Office Visit Rheumatology Mir Menjivar MD [address] [place] [address] [phone] Health Maintenance Due Date Last [...] Effective Phone Address T e Group Dates [facility] [id number] 2020-Pres [facility] - HEALTHCARE ent Adv HM O MANAGED DUAL COMPLETE MEDICARE HMO [facility] MEDICAID OF [id number] 2017-Pre [phone] Medi caid [place] sent [id number] [place] [address] documented as of this encounter Advance Directives Name Relationship Healthcare Agent Communication Relationship Tony Joshua Father [facility] Health Care [phone] Agent (Mobile) Philly Joshua Grandparent [facility] Health Care Agent Carlos Lewis Sibling [facility] Health Care Agent (Mobile)
--- OUTSIDE RECORDS SUMMARY | 2020-11-28 11:32 | XMS REPORT | Summary of Care ---
:1997 Author Organization [facility] Address [address] [place] [address] Care Team Providers Name Role Phone Ronni Flood MD Primary Care Provider Reason for Visit Reason Onset Date Comments Refill Request 09/07/2020 Encounter Details Date Type Department Care Team Description 09/07/2020 Refill [facility] Cardiology- Nirav Wilson MD Refill Request [address] [facility], [address] [place] [address] [place] [address] [phone] Allergies No Known Allergiesdocumented as of this encounter (statuses as of 09/08/2020) Medications Medication Sig Dispensed Refills Start End Date Status Date aspirin 81 mg EC Take 81 mg 0 Ac tive tablet by mouth daily. Cholecalciferol, Take by 0 Act saida Vitamin D3, (VITAMIN mouth. D3) 5,000 unit tablet omeprazole (PRILOSEC Take 1 90 tablet 0 Active OTC) 20 mg tablet by 0 tabletIndications: SLE mouth daily. (systemic lupus erythematosus related syndrome) ramipril 10 mg capsule Take 10 mg 0 Active by mouth daily. warfarin 2.5 mg Take as 60 tablet 3 Acti ve tabletIndications: directed by 0 Other acute pulmonary AntiCoag embolism without acute Clinic based cor pulmonale on INR results. FUROSEMIDE 40 mg TAKE 1 AND 60 tablet 0 Ac tive tabletIndications: 1/2 TABLETS 0 ESRD on peritoneal BY MOUTH dialysis TWICE DAILY mirtazapine 7.5 mg Take 1 30 tablet 3 A ctive tabletIndications: tablet by 0 Decreased appetite mouth at bedtime. predniSONE 1 mg Take 2 60 tablet 1 Acti ve tabletIndications: SLE tablets by 0 (systemic lupus mouth daily. erythematosus related syndrome) azaTHIOprine 50 mg Take 1 90 tablet 1 A ctive tabletIndications: SLE tablet by 0 (systemic lupus mouth daily. erythematosus related syndrome) hydrOXYchloroQUINE 200 Take 1 90 tablet 1 Active mg tabletIndications: tablet by 0 SLE (systemic lupus mouth daily. erythematosus related syndrome) carvediloL 25 mg Take 1 60 tablet 5 Act saida tablet tablet by 0 mouth 2 (two) times daily with meals. carvediloL 25 mg Take 1 60 tablet 5 09/07/20 Dis continued tablet tablet by 0 20 (Reorder) mouth 2 (two) times daily with meals. documented as of this encounter (statuses as of 09/08/2020) Active Problems Problem Noted Date Chronic combined [...] Acute on chronic systolic heart failure 08/19/2017 half-way (current) use of systemic steroids 7 documented as of this encounter (statuses as of 09/08/2020) Resolved Problems Problem Noted Date Resolved Date Symptomatic anemia 10/23/2019 11/07/2019 Chronic right shoulder pain 06/17/2019 06/19/2019 Chest pain 06/11/2019 06/19/2019 Decreased appetite 06/07/2019 06/19/2019 Breast swelling 05/01/2019 05/04/2019 Elevated brain natriuretic peptide (BNP) level 05/01/2019 06/02/2019 Venous stenosis of left upper extremity 08/04/2018 06/19/2019 Overview: Added automatically from request for jony mckee [id number] Fever 05/20/2018 06/02/2019 ESRD (end stage renal [...] as of this encounter (statuses as of 09/08/2020) Immunizations Name Administration Dates Next Due HPV [...] contact Unable to assess 09/04/2020 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 documented as of this encounter Last Filed Vital Signs Not on filedocumented in this encounter Plan of Treatment Date Type Specialty Care Team Description 12/04/2020 Office Visit Obstetrics & Gynecology Natasha Pelaez PA-C [address] [place], [place] [address] [phone] 12/06/2020 Nurse Visit Infusion Therapy Kandi on, Wu, PRINTER'S ASSISTANT [address] [place] [address] [phone] 2 Korin Adult Infusion Nurse 01/05/2021 Office Visit Rheumatology Mir Menjivar MD [address] [place] [phone] Health Maintenance Due Date Last [...] Effective Phone Address T ype Group Dates [facility] [id number] 2020-Pres [facility] - HEALTHCARE ent Adv HM O MANAGED DUAL COMPLETE MEDICARE HMO [place] MEDICAID OF [id number] 2017-Pre [phone] Medi caid [place] sent [id number] [place] [address] documented as of this encounter Advance Directives Name Relationship Healthcare Agent Communication Relationship Tony Lewis Father [facility] Care Agent (Mobile) Philly Joshua Grandparent [facility] Care Agent Carlos Lewis Sibling [facility] [phone] Care Agent (Mobile)
--- OUTSIDE RECORDS SUMMARY | 2020-11-28 11:32 | XMS REPORT | Summary of Care ---
:1997 Author Organization [facility] - Health Address [address] [place] [address] Care Team Providers Name Role Phone Ronni Flood MD Primary Care Provider Reason for Visit Transplant (Routine) Status Reason Specialty Diagnoses / Referred By Referred To Procedures Contact Contact Authorized Transplant Surgery Diagnoses ESRD Tissue Antigen Procedures KIDNEY TRANSPLANT Lab Reg [address] [place] [phone] Encounter Details Date Type Department Care Team Description 09/04/2020 Hospital Encounter [facility] Tissue Antigen Lab Zane Begum, Registration [address] [place] [phone] Allergies No Known Allergiesdocumented as of this encounter (statuses as of 09/07/2020) Medications Medication Sig Dispensed Refills Start Date [...] as of this encounter (statuses as of 09/07/2020) Active Problems Problem Noted Date Chronic combined [...] Acute on chronic systolic heart failure 08/19/2017 residential (current) use of systemic steroids 7 documented as of this encounter (statuses as of 09/07/2020) Resolved Problems Problem Noted Date Resolved Date Symptomatic anemia 10/23/2019 11/07/2019 Chronic right shoulder pain 06/17/2019 06/19/2019 Chest pain 06/11/2019 06/19/2019 Decreased appetite 06/07/2019 06/19/2019 Breast swelling 05/01/2019 05/04/2019 Elevated brain natriuretic peptide (BNP) level 05/01/2019 06/02/2019 Venous stenosis of left upper extremity 08/04/2018 06/19/2019 Overview: Added automatically from request for jony mckee [id number] Fever 05/20/2018 06/02/2019 ESRD (end stage renal [...] as of this encounter (statuses as of 09/07/2020) Immunizations Name Administration Dates Next Due HPV [...] contact Unable to assess 09/04/2020 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 documented as of this encounter Last Filed Vital Signs Not on filedocumented in this encounter Plan of Treatment Date Type Specialty Care Team Description 12/04/2020 Office Visit Obstetrics & Gynecology Natasha Pelaez PA-C [address] [place], [place] [address] [phone] 12/06/2020 Nurse Visit Infusion Therapy Wu Trejo, BOAT PULLER [address] [place], [place] [phone] 2, Korin Adult Infusion Nurse 01/05/2021 Office Visit Rheumatology Mir Menjivar MD [address] [place] [address] [phone] Health Maintenance Due Date Last [...] Effective Phone Address T ype Group Dates [facility] [id number] 2020-Pres [facility] - HEALTHCARE ent Adv HM O MANAGED DUAL COMPLETE MEDICARE HMO [facility] MEDICAID OF [id number] 2017-Pre [phone] [address] Medi caid [place] sent [phone] [place] [address] documented as of this encounter Advance Directives Name Relationship Healthcare Agent Communication Relationship Tony Lewis Father [facility] Health Care Agent (Mobile) Philly Joshua Grandparent [facility] Health Care Agent Carlos Lewis Sibling [facility] Health Care Agent (Mobile)
--- OUTSIDE RECORDS SUMMARY | 2020-11-28 11:33 | XMS REPORT | Summary of Care ---
:1995 Author Organization [facility] Address [address] [place] [address] Care Team Providers Name Role Phone Ronni Flood MD Primary Care Provider Reason for Visit Reason Comments Refill Request FUROSEMIDE 40 mg tablet Encounter Details Date Type Department Care Team Description 10/16/2020 Refill [facility] [place], Celina Pang, Refill Request Medicine, [facility]- (FUROSEMIDE 40 mg [place] [address] tablet) Primary Care [facility] [address] [place] [address] [address] [address] [place] [address] Allergies No Known Allergiesdocumented as of this encounter (statuses as of 10/17/2020) Medications Medication Sig Dispensed Refills Start End [...] Clinic based cor pulmonale on INR results. mirtazapine 7.5 mg Take 1 30 tablet 3 A ctive tabletIndications: tablet by 0 Decreased appetite mouth at bedtime. azaTHIOprine 50 mg Take 1 90 tablet 1 A ctive tabletIndications: SLE tablet by 0 (systemic lupus mouth daily. erythematosus related syndrome) carvediloL 25 mg Take 1 60 tablet 5 Act saida tablet tablet by 0 mouth 2 (two) times daily with meals. hydrOXYchloroQUINE 200 Take 1 90 tablet 1 Active mg tabletIndications: tablet by 0 SLE (systemic lupus mouth daily. erythematosus related syndrome) predniSONE 1 mg Take 2 180 tablet 1 Act saida tabletIndications: SLE tablets by 0 (systemic lupus mouth daily. erythematosus related syndrome) furosemide 40 mg Take 1.5 90 tablet 0 Act saida tabletIndications: tablets by 0 ESRD on peritoneal mouth every dialysis morning and evening. FUROSEMIDE 40 mg TAKE 1 AND 60 tablet 0 10/16/20 Di scontinued tabletIndications: 1/2 TABLETS 0 20 (Reorder) ESRD on peritoneal BY MOUTH dialysis TWICE DAILY documented as of this encounter (statuses as of 10/17/2020) Active Problems Problem Noted Date Chronic combined [...] Acute on chronic systolic heart failure 08/19/2017 long-term (current) use of systemic steroids 7 documented as of this encounter (statuses as of 10/17/2020) Resolved Problems Problem Noted Date Resolved Date Symptomatic anemia 10/23/2019 11/07/2019 Chronic right shoulder pain 06/17/2019 06/19/2019 Chest pain 06/11/2019 06/19/2019 Decreased appetite 06/07/2019 06/19/2019 Breast swelling 05/01/2019 05/04/2019 Elevated brain natriuretic peptide (BNP) level 05/01/2019 06/02/2019 Venous stenosis of left upper extremity 08/04/2018 06/19/2019 Overview: Added automatically from request for jony mckee [id number] Fever 05/20/2018 06/02/2019 ESRD (end stage renal [...] as of this encounter (statuses as of 10/17/2020) Immunizations Name Administration Dates Next Due HPV [...] Assigned at Date Recorded Not on file documented as of this encounter Last Filed Vital Signs Not on filedocumented in this encounter Miscellaneous Notes Telephone Encounter - Alfreda Salamanca - 10/17/2020 11:46 AM CSTLVM and clinic number asking patient to call back and schedule. Awaiting a call back. documented in this encounter Plan of Treatment Date Type Specialty Care Team Description 12/04/2020 Office Visit Obstetrics & Gynecology Natasha Pelaez PA-C [address] [place], [place] [address] [phone] 12/06/2020 Nurse Visit Infusion Therapy Kandi on, AGUILA Washburn [address] [place], [place] [phone] Korin Whitmore Adult Infusion Nurse 01/05/2021 Office Visit Rheumatology Mir Menjivar MD [address] [place] [address] [phone] Health Maintenance Due Date Last [...] filedocumented in this encounter Visit Diagnoses Diagnosis ESRD on peritoneal dialysis End stage renal disease documented in this encounter Insurance Payer Benefit Plan / Subscriber ID Effective Phone Address T ype Group Dates [facility] [id number] 2020-Pres Medica re HEALTHCARE - HEALTHCARE ent Adv HM O MANAGED DUAL COMPLETE MEDICARE HMO [facility] MEDICAID OF [id number] 2017-Pre [phone] Medi caid [place] sent [phone] [place] [address] [employer] [id number] 2020-Pre Medicare MPLEX MEDICAL sent Adv HM O CONDITIONS documented as of this encounter Advance Directives Name Relationship Healthcare Agent Communication Relationship Tony Lewis Father First [facility] Care Agent (Mobile) Philly Lewis Grandparent Second [facility] Health Care Agent Carlos Joshua Sibling Second [facility] Health [phone] Care Agent (Mobile)
--- OUTSIDE RECORDS SUMMARY | 2020-11-28 11:33 | XMS REPORT | Summary of Care ---
:1995 Author Organization [facility] Address [address] [place] [address] Care Team Providers Name Role Phone Ronni Flood MD Primary Care Provider Reason for Visit Reason Comments Refill Request FUROSEMIDE 40 mg tablet Encounter Details Date Type Department Care Team Description 10/16/2020 Refill [facility] Family [place], Celina Pang, Refill Request Medicine, [facility]- (FUROSEMIDE 40 mg [place] [address] tablet) Primary Care [facility] [address] [place] [address] [address] [address] [place] [address] Allergies No Known Allergiesdocumented as [...] Acute on chronic systolic heart failure 08/19/2017 prison (current) use of systemic steroids 7 documented [...] Added automatically from request for jony mckee [id number] Fever 05/20/2018 06/02/2019 ESRD (end stage renal [...] Visit Obstetrics & Gynecology Natasha Pelaez PA-C [address] [place], [place] [address] [phone] 12/06/2020 Nurse Visit Infusion Therapy Kandi onWu FNP [address] [place], [place] [phone] 2, Korin Adult Infusion Nurse 01/05/2021 Office Visit Rheumatology Mir Menjivar MD [address] [place] [address] [phone] Health Maintenance Due Date Last [...] ID Effective Phone Address T e Group [facility] [id number] 2020-Pres Medica HEALTHCARE - HEALTHCARE ent Adv HM O MANAGED DUAL COMPLETE MEDICARE HMO [place] MEDICAID OF [id number] 2017-Pre [phone] [facility] sent [phone] [place] [address] [employer] [id number] 2020-Pre Medicare MPLEX MEDICAL sent Adv HM O CONDITIONS documented as of this encounter Advance Directives Name Relationship Healthcare Agent Communication Relationship Tony Lewis Father [facility] Care Agent (Mobile) Philly Joshua Grandparent [facility] Care Agent Carlos Lewis Sibling [facility] [phone] Care Agent (Mobile)
--- OUTSIDE RECORDS SUMMARY | 2020-11-28 11:33 | XMS REPORT | Summary of Care ---
:1995 Author Organization [facility] Address [address] [place] [address] Care Team Providers Name Role Phone Ronni Flood MD Primary Care Provider Reason for Visit Reason Comments Refill Request Encounter Details Date Type Department Care Team Description 09/12/2020 Telephone [facility] Internal Alberto Menjivar MD Refill Request Medicine [address] [place] [address] [facility] [place] [address] Primary Care Pavilio n [phone] [address], [phone] (F ax) [address] [place] [address] Allergies No Known Allergiesdocumented as of this encounter (statuses as of 09/12/2020) Medications Medication Sig Dispensed Refills Start End [...] related syndrome) predniSONE 1 mg Take 2 60 tablet 1 09/12/20 Disc ontinued tabletIndications: SLE tablets by 0 20 (Reorder) (systemic lupus mouth daily. erythematosus related syndrome) hydrOXYchloroQUINE 200 Take 1 90 tablet 1 0 Discontinued mg tabletIndications: tablet by 0 20 (Reorder) SLE (systemic lupus mouth daily. 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 documented as of this encounter Last Filed Vital Signs Not on filedocumented in this encounter Miscellaneous Notes Telephone Encounter - Mir Menjivar MD - 09/12/2020 4:46 PM CSTCalled patient and spoke with her Pt said that the last the time medications were ordered, she did not pick them and when she went to pick the prescription after finishing the meds that she had, the pharmacy could not retrive the prescription (Could the prescription have been ?) Will refill Plaquenil 200 mg po Qdaily and Prednisone 2 mg po Qdaily Will cc P Rheumatology Nurse to clarify with the pharmacy regarding the previous prescriptions. documented in this encounter Plan of Treatment Date Type Specialty Care Team Description 12/04/2020 Office Visit Obstetrics & Gynecology Natasha Pelaez PA-C [address] [phone] 12/06/2020 Nurse Visit Infusion Therapy Segundorivera chowdhury, Wu, OPERATIONS DEVELOPER [address] [place] [address] [phone] 2Korin Adult Infusion Nurse 01/05/2021 Office Visit Rheumatology Mir Menjivar MD [address] [place] [address] [phone] Health Maintenance Due Date Last [...] Effective Phone Address T ype Group Dates [facility] [id number] 2020-Pres Medica re HEALTHCARE - HEALTHCARE ent Adv HM O MANAGED DUAL COMPLETE MEDICARE HMO [facility] MEDICAID OF [id number] 2017-Pre [phone] Medi caid [place] sent [phone] [place] [address] documented as of this encounter Advance Directives Name Relationship Healthcare Agent Communication Relationship Tony Lewis Father [facility] [phone] Agent (Mobile) Philly Lewis Grandparent [facility] Care Agent Carlos Lewis Sibling [facility] Care Agent (Mobile)
--- OUTSIDE RECORDS SUMMARY | 2020-11-28 11:34 | XMS REPORT | Summary of Care ---
:1997 Author Organization [facility] Address [address] [place] [address] Care Team Providers Name Role Phone Ronni Flood MD Primary Care Provider Reason for Referral Radiology Services (Routine) Status Reason Specialty Diagnoses / Referred By Referred To Procedures Contact Contact New Request Diagnostic Diagnoses Osteoporosis of lumbar spine Jorge-Kunjum Radiology Procedures DEXA PERIPHERAL (FOREARM) on, [place] [address] Radiology Services (Routine) Status Reason Specialty Diagnoses / Referred By Referred To Procedures Contact Contact New Request Diagnostic Diagnoses Osteoporosis of lumbar spine Jorge-Kunjum Radiology Procedures DEXA AXIAL (HIP AND SPINE) on, [place] [address] (Routine) Status Reason Specialty Diagnoses / Referred By Referred To Procedures Contact Contact New Request Infusion Therapy Diagnoses Osteoporosis of lumbar spine Jorge-Kunjumo Procedures CONSULT/REFERRAL AMB INFUSION THERAPY Preferred location: [facility]; Expected Start Date: 11/27/2020; Medication: Inj.Denosumab; Dose: 60 mg; Route: s/c; Frequency: every 6 months; Total number of doses: 2 Wu sales FNP [address] [place], [place] [phone] Reason for Visit Reason Comments Follow-up Osteoporosis of lumbar spine Encounter Details Date Type Department Care Team Description 10/30/2020 Office Visit [facility] Osteoporos is of lumbar Orthopaedic Surgery- , Shibi, FN P spine (Primary Dx) [address] [facility] [address] [place] [phone] Allergies No Known Allergiesdocumented as of this encounter (statuses as of 10/30/2020) Medications Medication Sig Dispensed Refills Start Date End Date Status aspirin 81 mg EC tablet Take 81 mg by 0 Active mouth daily. Cholecalciferol, Vitamin Take by 0 Active D3, (VITAMIN D3) 5,000 mouth. unit tablet omeprazole (PRILOSEC OTC) Take 1 tablet 90 tablet 0 12/02/2019 Active 20 mg tabletIndications: by mouth SLE (systemic lupus daily. erythematosus related syndrome) ramipril 10 mg capsule Take 10 mg by 0 Active mouth daily. warfarin 2.5 mg Take as 60 tablet 3 04/24/2020 Act saida tabletIndications: Other directed by acute pulmonary embolism AntiCoag without acute cor Clinic based pulmonale on INR results. mirtazapine 7.5 mg Take 1 tablet 30 tablet 3 07/20/2020 Active tabletIndications: by mouth at Decreased appetite bedtime. azaTHIOprine 50 mg Take 1 tablet 90 tablet 1 08/04/2020 Active tabletIndications: SLE by mouth (systemic lupus daily. erythematosus related syndrome) carvediloL 25 mg tablet Take 1 tablet 60 tablet 5 09/08/2020 Active by mouth 2 (two) times daily with meals. hydrOXYchloroQUINE 200 mg Take 1 tablet 90 tablet 1 09/12/2020 Active tabletIndications: SLE by mouth (systemic lupus daily. erythematosus related syndrome) predniSONE 1 mg Take 2 tablets 180 tablet 1 09/12/2020 Active tabletIndications: SLE by mouth (systemic lupus daily. erythematosus related syndrome) furosemide 40 mg Take 1.5 90 tablet 0 10/17/2020 Ac tive tabletIndications: ESRD tablets by on peritoneal dialysis mouth every morning and evening. 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 7 documented as of this encounter (statuses as of 10/30/2020) Resolved Problems Problem Noted Date Resolved Date Symptomatic anemia 10/23/2019 11/07/2019 Chronic right shoulder pain 06/17/2019 06/19/2019 Chest pain 06/11/2019 06/19/2019 Decreased appetite 06/07/2019 06/19/2019 Breast swelling 05/01/2019 05/04/2019 Elevated brain natriuretic peptide (BNP) level 05/01/2019 06/02/2019 Venous stenosis of left upper extremity 08/04/2018 06/19/2019 Overview: Added automatically from request for jony rafi [id number] Fever 05/20/2018 06/02/2019 ESRD (end stage renal disease) 09/05/2017 9 SLE (systemic lupus erythematosus related syndrome) 09/05/20 17 06/02/2019 Breast pain in female 08/19/2017 05/04/2019 Chest [...] as of this encounter (statuses as of 10/30/2020) Immunizations Name Administration Dates Next Due HPV [...] of this encounter Last Filed Vital Signs Vital Sign Reading Time Taken Comments Blood Pressure 101/64 10/30/2020 10:23 AM REFINER OPERATOR Pulse 88 10/30/2020 10:23 AM REFINER OPERATOR Temperature 36.8 C (98.2 F) 10/30/2020 10:23 AM REFINER OPERATOR Respiratory Rate 18 10/30/2020 10:23 AM REFINER OPERATOR Oxygen Saturation - - Inhaled Oxygen Concentration - - Weight 51.7 kg (114 lb) 10/30/2020 10:23 AM REFINER OPERATOR Height 157.5 cm (5' 2") 10/30/2020 10:23 AM REFINER OPERATOR Body Mass Index 20.85 10/30/2020 10:23 AM REFINER OPERATOR documented in this encounter Progress Notes Wu Sanz, AGUILA - 10/30/2020 10:10 AM CST Initial Visit: Pt is here for a Bone Health Evaluation. Referred By:Rheumatology HPI:Ashley Lewis is a 23 year old female PMH ofSLE, ESRD on PD, HTN, CHF PE and PNA.She shere for the Bone health evaluation.She was doing HD for past 3 years and now she has switched to home PD.She has h/o amenorrhea for past 5 years.Never had fracture in the past.Does not take supplements. Risk Factors: CKD,Lupus,on immunosuppressants,oral steroids,anticoagulants,amenorrhea. Interval Hx 11/01/2019 :Ashley Lewis is a 24 year old female for the follow up with the DEXA WHICH SHOWS Osteoporosis of spine with the T score of - 2.9 and especially L4 with the T score of -3.7. Interval Hx 10/30/2020 :Ashley Lewis is a 25 year old female for the follow up with the Osteoporosis mgt,especially Osteoporosis of spine,denies any back pain,recent fall or fractures.She had total knee replacement in 2013.Tolerating Inj.Prolia had 2 doses so far. Continuing HD 3 times a week. She is in the renal transplant list. Does take vit D3 5,000 IU/day. Past Medical History: Diagnosis Date Anemia Arthritis knees/elbows AV fistula Left upper arm. CHF (congestive heart failure) 2018 Esophageal reflux ESRD (end stage renal disease) Hypertension meds for heart rate and cardiac muscle disorder Lupus (systemic lupus erythematosus) Nephritis Pain Peritoneal dialysis catheter in place Transfusion history Current Outpatient Medications Medication Sig Dispense Refill furosemide 40 mg tablet Take 1.5 tablets by mouth every morning and evening. 90 tablet 0 carvediloL 25 mg tablet Take 1 tablet by mouth 2 (two) times daily with meals. 60 tablet 5 hydrOXYchloroQUINE 200 mg tablet Take 1 tablet by mouth daily. 90 tablet 1 predniSONE 1 mg tablet Take 2 tablets by mouth daily. 180 tablet 1 azaTHIOprine 50 mg tablet Take 1 tablet by mouth daily. 90 tablet 1 mirtazapine 7.5 mg tablet Take 1 tablet by mouth at bedtime. 30 tablet 3 warfarin 2.5 mg tablet Take as directed by AntiCoag Clinic based on INR results. 60 tablet 3 ramipril 10 mg capsule Take 10 mg by mouth daily. omeprazole (PRILOSEC OTC) 20 mg tablet Take 1 tablet by mouth daily. 90 tablet 0 Cholecalciferol, Vitamin D3, (VITAMIN D3) 5,000 unit tablet Take by mouth. aspirin 81 mg EC tablet Take 81 mg by mouth daily. No current facility-administered medications for this visit. Social History Socioeconomic History Marital status: Single Spouse name: Not on file Number of children: Not on file Years of education: 12 Highest education level: Some college, no degree Occupational History Not on file Social Needs Financial resource strain: Somewhat hard Food insecurity Worry: Never true Inability: Never true Transportation needs Medical: No Non-medical: No Tobacco Use Smoking status: Never Smoker Smokeless tobacco: Never Used Substance and Sexual Activity Alcohol use: No Alcohol/week: 0.0 standard drinks Drug use: No Sexual activity: Not Currently Partners: Male Lifestyle Physical activity Days per week: Not on file Minutes per session: Not on file Stress: Not on file Relationships Social connections Talks on phone: Not on file Gets together: Not on file Attends voodoo service: Not on file Active member of club or organization: Not on file Attends meetings of clubs or organizations: Not on file Relationship status: Not on file Intimate partner violence Fear of current or ex partner: Not on file Emotionally abused: Not on file Physically abused: Not on file Forced sexual activity: Not on file Other Topics Concern Not on file Social History Narrative Denies physical and sexual abuse. Family History Problem Relation Age of Onset Other - see comments Mother Cancer Maternal Grandmother Diabetes Maternal Grandfather Depression Father No Significant Medical Problems Sister Kidney disease Paternal Grandfather No Significant Medical Problems Sister Vitals: 10/30/20 1023 BP: 101/64 Pulse: 88 Resp: 18 Temp: 36.8 C (98.2 F) TempSrc: Oral Weight: 51.7 kg (114 lb) Height: 62" (157.5 cm) Review of systems: HENT:Negative EYES:Negative. Resp:Negative CVS:Negative Musculoskeletal:Negative Skin:Negative Neuro:Negative Psych:Negative Physical Exam: Constitutional:Well developed, well nourished, no acute distress, non-toxic appearance Eyes:PERRL, conjunctiva normal, anicteric HENT:Atraumatic, external ears normal, nose normal, oropharynx moist, no pharyngeal exudates. Neckwith normal range of motion, no tenderness, no mass or bruits. Respiratory:Eupneic, no respiratory distress, normal breath sounds, no rales, no wheezing Cardiovascular:Normal rate, normal rhythm, no murmurs, no gallops, no rubs GI:Abdomen mildly obese, soft, nontender, without mass. Mildly enlarged liver is palpable below the right costal margin : No costovertebral angle tenderness Musculoskeletal:No edema, no tenderness, no deformities. Spine unremarkable. Integument:Well hydrated, no rash, cyanosis or jaundice Lymphatic:No pathologic lymphadenopathy noted Neurologic:Alert &oriented x 3, CN 2-12 grossly normal, no motor or sensory function deficits, no focal deficits noted Psychiatric: Speech and behavior appropriate DEXA 2018 10. Lumbar spine L1-L4: Z score -2.5. Bone mineral density of 0.836 g/cm^2. The lowest measurements in the lumbar spine is at L4 with a T score of -3.7. 2. Right Hip: Z score -2.1. Bone mineral density of 0.718 g/cm^2. Right Neck: Z score -2.0. Bone mineral density of 0.734 g/cm^2. 3. Left Forearm (33% Radius): Z score -2.0. Bone mineral density of 0.700 g/cm^2. IMPRESSION Osteoporosis. Assessment:Amenorrhea, primary (primary encounter diagnosis) Type I osteoporosis CKD (chronic kidney disease), stage IV Plan: Advised to continue next 2 doses of Inj.Prolia. Ordered DEXA to be done in SEP 2021. F/up in Oct 2021 after DEXA. Continue vit D3 5000 IU/day. Advised to do vit D lab and notify me if the labs value is < 20. Weight bearing exercises and fall precautions. Revwied old DEXA. AGUILA Zelaya. Orthopedics surgery. documented in this encounter Plan of Treatment Date Type Specialty Care Team Description 12/04/2020 Office Visit Obstetrics & Gynecology Natasha Pelaez PA-C [address] [place], [place] [address] [phone] 12/06/2020 Nurse Visit Infusion Therapy Wu Trejo FNP [address] [place] [address] 2, Korin Adult Infusion Nurse 01/05/2021 Office Visit Rheumatology Mir Menjivar MD [address] [place] [address] [phone] 11/02/2021 Office Visit Orthopedic Surgery Jenifer Sanz FNP [address] [place] [address] Name Type Priority Associated Diagnoses Order S chedule DEXA AXIAL (HIP AND IMAGING Routine Osteoporosis of lumba r Expected: SPINE) spine 08/27/2021, Exp ires: 10/30/2021 DEXA PERIPHERAL IMAGING Routine Osteoporosis of lumbar Ex pected: (FOREARM) spine 08/27/2021, Exp ires: 10/30/2021 Health Maintenance Due Date Last Done Comments [...] filedocumented in this encounter Visit Diagnoses Diagnosis Osteoporosis of lumbar spine - Primary documented in this encounter Insurance Payer Benefit Plan / Subscriber ID Effective Phone Address T ype Group Dates [facility] [id number] 2020-Pres Medica re HEALTHCARE - HEALTHCARE ent Adv HM O MANAGED DUAL COMPLETE MEDICARE HMO [facility] MEDICAID OF [id number] 2017-Pre [phone] Medi caid [place] sent [phone] [place] [address] documented as of this encounter Advance Directives Name Relationship Healthcare Agent Communication Relationship Tony Lewis Father First [facility] Health Care Agent (Mobile) Philly Lewis Grandparent Second [facility] Health Care Agent Carols Lewis Sibling Second [facility] Health Care Agent (Mobile)
--- OUTSIDE RECORDS SUMMARY | 2020-11-28 11:34 | XMS REPORT | Summary of Care ---
:1995 Author Organization [facility] Address [address] [place] [address] Care Team Providers Name Role Phone Ronni Flood MD Primary Care Provider Reason for Referral Radiology Services (Routine) Status Reason Specialty Diagnoses / Referred By Referred To Procedures Contact Contact New Request Diagnostic Diagnoses Osteoporosis of lumbar spine Jorge-Kunjum Radiology Procedures DEXA PERIPHERAL (FOREARM) on, [place] [address] Radiology Services (Routine) Status Reason Specialty Diagnoses / Referred By Referred To Procedures Contact Contact New Request Diagnostic Diagnoses Osteoporosis of lumbar spine Jorge-Kunjum Radiology Procedures DEXA AXIAL (HIP AND SPINE) on, [place] [address] (Routine) Status Reason Specialty Diagnoses / Referred By Referred To Procedures Contact Contact New Request Infusion Therapy Diagnoses Osteoporosis of lumbar spine Jorge-Kunjumo Procedures CONSULT/REFERRAL AMB INFUSION THERAPY Preferred location: [facility]; Expected Start Date: 11/27/2020; Medication: Inj.Denosumab; Dose: 60 mg; Route: s/c; Frequency: every 6 months; Total number of doses: 2 Wu sales FNP [address] [place], [place] [id number] Reason for Visit Reason Comments Follow-up Osteoporosis of lumbar spine Encounter Details Date Type Department Care Team Description 10/30/2020 Office Visit [facility] Umu Osteoporos is of lumbar Orthopaedic Surgery- , Shibi, FN P spine (Primary Dx) [place] [phone] [facility] [address] [place] [address] [phone] Allergies No Known Allergiesdocumented as of this [...] Acute on chronic systolic heart failure 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 7 [...] Added automatically from request for jony rafi [id number] Fever 05/20/2018 06/02/2019 ESRD (end stage renal [...] Comments Blood Pressure 101/64 10/30/2020 10:23 AM MEDIA SALES EXECUTIVE Pulse 88 10/30/2020 10:23 AM MEDIA SALES EXECUTIVE Temperature 36.8 C (98.2 F) 10/30/2020 10:23 AM MEDIA SALES EXECUTIVE Respiratory Rate 18 10/30/2020 10:23 AM MEDIA SALES EXECUTIVE Oxygen Saturation - - Inhaled Oxygen Concentration - - Weight 51.7 kg (114 lb) 10/30/2020 10:23 AM MEDIA SALES EXECUTIVE Height 157.5 cm (5' 2") 10/30/2020 10:23 AM MEDIA SALES EXECUTIVE Body Mass Index 20.85 10/30/2020 10:23 AM MEDIA SALES EXECUTIVE documented in this encounter Progress Notes Wu [...] file Gets together: Not on file Attends buddhist service: Not on file Active member of [...] Visit Obstetrics & Gynecology Natasha Pelaez PA-C [address] [place], [place] [address] [phone] 12/06/2020 Nurse Visit Infusion Therapy Wu Trejo FNP [address] [place] [address] 2, Korin Adult Infusion Nurse 01/05/2021 Office Visit Rheumatology Mir Menjivar MD [address] [place] [address] [phone] 11/02/2021 Office Visit Orthopedic Surgery Jenifer Sanz FNP [address] [place] [address] Name Type Priority Associated Diagnoses [...] Phone Address T ype Group Dates [facility] [id number] 2020-Pres Medica re HEALTHCARE - HEALTHCARE ent Adv HM O MANAGED DUAL COMPLETE MEDICARE HMO TMHP MEDICAID OF [id number] 2017-Pre [phone] [address] Medi caid [place] sent [phone] [place] [address] documented as of this encounter Advance Directives Name Relationship Healthcare Agent Communication Relationship Tony Lewis Father First Alternate Health Care Agent (Mobile) Philly Lewis Grandparent Second [facility] Health Care Agent Carlos Lewis Sibling Second [facility] Health Care Agent (Mobile)
--- OUTSIDE RECORDS SUMMARY | 2020-11-28 11:34 | XMS REPORT | Summary of Care ---
:1997 Author Organization [facility] Address [address] [place] [address] Care Team Providers Name Role Phone Ronni Flood MD Primary Care Provider Encounter Details Date Type Department Care Team Description 11/10/2020 Patient Secure [facility] Flavia Herrera Orthopaedic Surgery- K, [employer] ARCHITECT [phone] [place] [address] [phone] Allergies No Known Allergiesdocumented as of this encounter (statuses as of 11/10/2020) Medications Medication Sig Dispensed Refills Start Date [...] as of this encounter (statuses as of 11/10/2020) Active Problems Problem Noted Date Chronic combined [...] Acute on chronic systolic heart failure 08/19/2017 skilled nursing (current) use of systemic steroids 7 documented as of this encounter (statuses as of 11/10/2020) Resolved Problems Problem Noted Date Resolved Date Symptomatic anemia 10/23/2019 11/07/2019 Chronic right shoulder pain 06/17/2019 06/19/2019 Chest pain 06/11/2019 06/19/2019 Decreased appetite 06/07/2019 06/19/2019 Breast swelling 05/01/2019 05/04/2019 Elevated brain natriuretic peptide (BNP) level 05/01/2019 06/02/2019 Venous stenosis of left upper extremity 08/04/2018 06/19/2019 Overview: Added automatically from request for jony mckee [id number] Fever 05/20/2018 06/02/2019 ESRD (end stage renal [...] as of this encounter (statuses as of 11/10/2020) Immunizations Name Administration Dates Next Due HPV [...] Visit Obstetrics & Gynecology Natasha Pelaez PA-C [address] [place], [place] [address] [phone] 12/06/2020 Nurse Visit Infusion Therapy Wu Trejo FNP [address] [place] [address] [phone] 2Korin Adult Infusion Nurse 01/05/2021 Office Visit Rheumatology Mir Menjivar MD [address] [place] [address] [phone] 10/08/2021 Appointment Radiology Wu Sanz FNP [address] [place] [address] [phone] 10/08/2021 Appointment Radiology Wu Sanz FNP [address] [place] [address] [phone] 11/02/2021 Office Visit Orthopedic Surgery Jenifer Sanz, CAKE PUNCH[address] 535893 Health Maintenance Due Date Last Done Comments [...] ID Effective Phone Address T ype Group [facility] [id number] 2020-Pres Medica re HEALTHCARE - HEALTHCARE ent Adv HM O MANAGED DUAL COMPLETE MEDICARE HMO [facility] MEDICAID OF [id number] 2017-Pre [phone] O BOX Medi caid [place] sent [phone] [place] [address] [employer] [employer] [id number] 2020-Pre Medicare MPLEX MEDICAL sent Adv HM O CONDITIONS documented as of this encounter Advance Directives Name Relationship Healthcare Agent Communication Relationship Tony Lewis Father First [facility] Care [phone] Agent (Mobile) Philly Joshua Grandparent Second [facility] Health Care Agent Nunda Joshua Sibling Second [facility] Health Care Agent (Mobile)
--- OUTSIDE RECORDS SUMMARY | 2020-11-28 11:35 | XMS REPORT | Summary of Care ---
:1997 Author Organization [facility] Address [address] [place] [address] Care Team Providers Name Role Phone Ronni Flood MD Primary Care Provider Reason for Visit Reason Comments PT/INR Encounter Details Date Type Department Care Team Description 11/20/2020 Nurse Visit [facility] Gadiel Grover MD [address] [place] [address] Other acute pulmonary embolism without a cute cor pulmonale; Vjpu-Vzlgjsbizqi-PH Nurse, [facility] Anticoag Anticoagulation management encounter; [facility] Hypercoagulable state [facility], [place] [address] Allergies No Known Allergiesdocumented as of this encounter (statuses as of 11/20/2020) Medications Medication Sig Dispensed Refills Start Date [...] 10 mg by 0 Active mouth daily. mirtazapine 7.5 mg Take 1 tablet 30 [...] peritoneal dialysis mouth every morning and evening. warfarin 2.5 mg Take as 60 tablet 0 11/17/2020 Act saida tabletIndications: Other directed by acute pulmonary embolism AntiCoag without acute cor Clinic based pulmonale on INR results. 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 7 documented as of this encounter (statuses as of 11/20/2020) Resolved Problems Problem Noted Date Resolved Date Symptomatic anemia 10/23/2019 11/07/2019 Chronic right shoulder pain 06/17/2019 06/19/2019 Chest pain 06/11/2019 06/19/2019 Decreased appetite 06/07/2019 06/19/2019 Breast swelling 05/01/2019 05/04/2019 Elevated brain natriuretic peptide (BNP) level 05/01/2019 06/02/2019 Venous stenosis of left upper extremity 08/04/2018 06/19/2019 Overview: Added automatically from request for jony mckee [id number] Fever 05/20/2018 06/02/2019 ESRD (end stage renal [...] as of this encounter (statuses as of 11/20/2020) Immunizations Name Administration Dates Next Due HPV [...] last month, have you been in contact with No / Unsure 11/20/2020 3:23 PM 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 documented as of this encounter Last Filed Vital Signs Not on filedocumented in this encounter Patient Instructions Patient InstructionsElenita Ferreira RN - 11/20/2020 3:00 PM CSTChange in Warfarin dose:increase dose to 21.25 mgper week (using 2.5 mg tablets - light green) Friday:2.5 mg Friday:5 mg ( 2 tablets ) Friday:5 mg ( 2 tablets ) Friday:3.75 mg ( 1 and 1/2 tablets ) :5 mg Friday:0 Friday:0 Repeat above schedule until you return for your next visit. Because you are taking warfarin it is important that you get immediate medical attention if you develop any signs or symptoms of bleeding. Also, if you should fall and hit your head you must be evaluated immediately at the emergency room where they may do a CT scan to rule out a subdural hematoma or other internal bleeding event. You may have bleeding you cannot see which may be fatal. Please make sure you tell your loved ones about this warning. For your safety, please remember to call the [facility] if any of your current medications change dose, if you get new medications, or if medications are stopped. There may be interactions with medications that will increase your risk of bleeding or forming blood clots. When you call the clinic([phone]) we will advise you if your INR should be checked sooner than your next scheduled appointment or you may need to adjust your Vitamin K food intake. [facility] Contact Information [facility] Elenita [phone] [email or web address] [phone] [email or web address] [phone] [email or web address] To schedule appts - [phone] Emergency Dial 911 or go to the nearest Emergency Room ICULUM ASSISTANT documented in this encounter Progress Notes Elenita Ferreira RN - 11/20/2020 3:00 PM CST ANTI-COAGULATION CLINIC NOTE Anti-Coagulation diagnosis: ICD-10-CM ICD-9-CM 1. Other acute pulmonary embolism without acute cor pulmonale I26.99 415.19 2. Anticoagulation management encounter Z51.81 V58.83 Z79.01 V58.61 3. Hypercoagulable state D68.59 289.81 Warfarin dose:17.5 mgper week (using 2.5 mg tablets - light green) Friday:2.5 Friday:2.5 mg Friday:5 mg Friday:2.5 :5 Friday:0 day:0 Cognitive assessment: alert and oriented times 3 Finger stick performed using aseptic technique, sticking left hand, middle finger, and CoaguChek XS machine [id number] was used. Blood sample was obtained; Band aid was applied. Strip used today lot number: [id number] POCT PT/INR Date Value Ref Range Status 11/20/2020 1.3 0.8 - 1.4 INR Final POCT PT/SEC Date Value Ref Range Status 11/20/2020 15.7 SEC Final Anti-Coagulation diagnosis: ICD-10-CM ICD-9-CM 1. Other acute pulmonary embolism without acute cor pulmonale I26.99 415.19 2. Anticoagulation management encounter Z51.81 V58.83 Z79.01 V58.61 3. Hypercoagulable state D68.59 289.81 Duration of Anticoagulation Therapy As of 11/20/2020 TTR: 32.4 % (1.3 y) Target end date: 12/24/2019 Target Range As of 11/20/2020 INR goal: 2.0-3.0 TTR: 32.4 % (1.3 y) PT/INR less than therapeutic range Pt's INR was 6.2 (Venous 4.1) on 11/17 and dose warfarin was held x 2 days then patient was instructed to take warfarin 2.5 mg on Friday as there was no contributing factor identified. Pt's INR today is1.3. Due to held doses patient has taken a total of warfarin 17.5 mg in the last week. Will increase warfarin 17.5 mg to 21.25 mg weekly dose. Will recheck INR in 3 days. Reviewed the need for consistent and accurate dosing of warfarin and consistent intake of high Vit Kfoods in order to reduce the risk for blood clots, stroke, or bleeding event. Pt will review and reconcile medication list at next PCP appointment. Patient verbalized understanding and agreement with the plan of care. Change in Warfarin dose:increase dose to 21.25 mgper week (using 2.5 mg tablets - light green) Friday:2.5 mg Friday:5 mg ( 2 tablets ) Friday:5 mg ( 2 tablets ) Friday:3.75 mg ( 1 and 1/2 tablets ) :5 mg Friday:0 Friday:0 Patient notified: yes Patient verbalized understanding and agreement with the plan of care. Patient was provided with written and verbal educational information on November 20, 2020 regarding the interaction of warfarin with various foods and medications as part of ongoing education within theAntiCoagulation Clinic. Patient shows readiness to learn. Patient is able to read and verbalizes u nderstanding of teaching provided and is provided a printed after visit summary (AVS) documenting the visit, pertinent patient instructions and follow-up recommendations. documented in this encounter Plan of Treatment Date Type Specialty Care Team Description 11/23/2020 Nurse Visit Anti-coagulation Clinic Nurse, Guadalupe Antico ag 12/04/2020 Office Visit Obstetrics & Gynecology Natasha Pelaez PA-C [address] [place] [address] [phone] 12/06/2020 Nurse Visit Infusion Therapy Wu rTejo, AGUILA [address] [place] [address] [phone] 2Korin Adult Infusion Nurse 01/05/2021 Office Visit Rheumatology Mir Menjivar MD [address] [place] [address] [phone] 10/08/2021 Appointment Radiology Wu Sanz FNP [address] [place] [address] [phone] 10/08/2021 Appointment Radiology Wu Sanz, AGUILA [address] [place] [address] [phone] 11/02/2021 Office Visit Orthopedic Surgery Jenifer Sanz, [employer]BER [address] [place] [address] [phone] Health Maintenance Due Date Last Done Comments [...] 12/03/2022 12/03/2019 documented as of this encounter Procedures Procedure Name Priority Date/Time Associated Diagnosis Comme nts POCT PT/INR(COAGUCHEK) Routine 11/20/2020 Other acute pulmon michael Results for this embolism without acute proce dure are in the cor pulmonale results section. Anticoagulation management encou nter Hypercoagulable state documented in this encounter Results POCT PT/INR(COAGUCHEK) (11/20/2020) Pathologist Sig nature POCT PT/INR 1.3 0.8 - 1.4 INR POCT PT/SEC 15.7 SEC Specimen Blood - CAPILLARY documented in this encounter Visit Diagnoses Diagnosis Other acute pulmonary embolism without a cute cor pulmonale Anticoagulation management encounter Encounter for therapeutic drug monitorin g Hypercoagulable state Primary hypercoagulable state documented in this encounter Insurance Payer Benefit Plan / Subscriber ID Effective Phone Address T ype Group Dates [facility] [id number] 2020-Pres Medica re HEALTHCARE - HEALTHCARE ent Adv HM O MANAGED DUAL COMPLETE MEDICARE HMO TMHP MEDICAID OF [id number] 2017-Pre [phone] [address] Medi caid [place] sent [phone] [place] [address] documented as of this encounter Advance Directives Name Relationship Healthcare Agent Communication Relationship Tony Lewis Father First [facility] Health Care [phone] Agent (Mobile) Philly Lewis Grandparent Second [facility] Care Agent Carlos Lewis Sibling Second [facility] [phone] Care Agent (Mobile)
--- OUTSIDE RECORDS SUMMARY | 2020-11-28 11:35 | XMS REPORT | Summary of Care ---
:1997 Author Organization [facility] Address [address] [place] [address] Care Team Providers Name Role Phone Ronni Flood MD Primary Care Provider Reason for Referral Radiology Services (Routine) Status Reason Specialty Diagnoses / Referred By Referred To Procedures Contact Contact New Request Diagnostic Diagnoses Pain Riley Ba Radiology Procedures XR ELBOW >3 VW RIGHT Eileen MD [address] [facility] [place] [address] Reason for Visit Reason Comments Other Encounter Details Date Type Department Care Team Description 11/16/2020 Telephone [facility] Orthopaedic Riley Ba MD Other Surgery- [place] [address] Jennifer Choi [address] [facility] [place] [place] [address]3 836 [place] [address] Allergies No Known Allergiesdocumented as of this encounter (statuses as of 11/16/2020) Medications Medication Sig Dispensed Refills Start Date [...] as of this encounter (statuses as of 11/16/2020) Active Problems Problem Noted Date Chronic combined [...] Acute on chronic systolic heart failure 08/19/2017 USP (current) use of systemic steroids 7 documented as of this encounter (statuses as of 11/16/2020) Resolved Problems Problem Noted Date Resolved Date Symptomatic anemia 10/23/2019 11/07/2019 Chronic right shoulder pain 06/17/2019 06/19/2019 Chest pain 06/11/2019 06/19/2019 Decreased appetite 06/07/2019 06/19/2019 Breast swelling 05/01/2019 05/04/2019 Elevated brain natriuretic peptide (BNP) level 05/01/2019 06/02/2019 Venous stenosis of left upper extremity 08/04/2018 06/19/2019 Overview: Added automatically from request for jony mckee [id number] Fever 05/20/2018 06/02/2019 ESRD (end stage renal [...] as of this encounter (statuses as of 11/16/2020) Immunizations Name Administration Dates Next Due HPV [...] this encounter Miscellaneous Notes Telephone Encounter - Araseli Ruano MA - 11/16/2020 4:00 PM CSTPatient informed, Araseli Ruano (X-ray Tech), will not be in the office day of Patient apt. Willneed to have X-rays done prior to visit. I have placed orders in Epic.Araseli Ruano MA 11/16/2020 4:00 PM documented in this encounter Plan of Treatment Date Type Specialty Care Team Description 11/17/2020 Office Visit Orthopedic Surgery Kar Ba MD [address] [place], [place] [address] [phone] 11/17/2020 Nurse Visit Anti-coagulation Clinic Nurse, Guadalupe hamilton 12/04/2020 Office Visit Obstetrics & Gynecology Natasha Pelaez PA-C [address] [address] [phone] 12/06/2020 Nurse Visit Infusion Therapy Wu Trejo, [facility] [address] [place] [address] [phone] 2Korin Adult Infusion Nurse 01/05/2021 Office Visit Rheumatology Mir Menjivar MD [address] [place] [address] [phone] 10/08/2021 Appointment Radiology Wu Sanz, [facility] [address] [place] [address] [phone] 10/08/2021 Appointment Radiology Wu Sanz, ELEVATOR CONSTRUCTOR [address] [place] [address] [phone] 11/02/2021 Office Visit Orthopedic Surgery JorgeJenifer Fields, ELEVATOR CONSTRUCTOR [address] [place] [address] [phone] Name Type Priority Associated Diagnoses Order S chedule XR ELBOW >3 VW RIGHT IMAGING Routine Pain Expecte d: 11/16/2020, Expires: 2021 Health Maintenance Due Date Last Done Comments [...] filedocumented in this encounter Visit Diagnoses Diagnosis Pain - Primary Generalized pain documented in this encounter Insurance Payer Benefit Plan / Subscriber ID Effective Phone Address T ype Group Dates [facility] [id number] 2020-Pres Medica re HEALTHCARE - HEALTHCARE ent Adv HM O MANAGED DUAL COMPLETE MEDICARE HMO [facility] MEDICAID OF [id number] 2017-Pre [phone] O BOX Medi caid [place] sent [phone] [place] [address] [employer] [id number] 2020-Pre Medicare MPLEX MEDICAL sent Adv HM O CONDITIONS documented as of this encounter Advance Directives Name Relationship Healthcare Agent Communication Relationship Tony Lewis Father [facility] Care [phone] Agent (Mobile) Philly Lewis Grandparent [facility] Health Care Agent Carlos Lewis Sibling Second [facility] Health Care Agent (Mobile)
--- OUTSIDE RECORDS SUMMARY | 2020-11-28 11:35 | XMS REPORT | Summary of Care ---
:1995 Author Organization [facility] Address [address] [place] [address] Care Team Providers Name Role Phone Ronni Flood MD Primary Care Provider Reason for Referral Radiology Services (Routine) Status Reason Specialty Diagnoses / Referred By Referred To Procedures Contact Contact Closed Diagnostic Diagnoses Pain Jonelle Ba Radiology Procedures XR ELBOW >3 VW RIGHT MD Eileen [address] [place] [address] [place] [address] Reason for Visit Radiology Services (Routine) Status Reason Specialty Diagnoses / Referred By Referred To Procedures Contact Contact Closed Diagnostic Diagnoses Pain Jonelle Ba Radiology Procedures XR ELBOW >3 VW RIGHT MD Eileen [address] [place] [address] [place] [address] Encounter Details Date Type Department Care Team Description 11/17/2020 Hospital Encounter [facility] Blanca Ba, Starr Canales Radiology [address] [place] [address] Dr cintron [address] [place] [address] [address] [phone] [place] [address] Allergies No Known Allergiesdocumented as of this encounter (statuses as of 11/18/2020) Medications Medication Sig Dispensed Refills Start Date [...] as of this encounter (statuses as of 11/18/2020) Active Problems Problem Noted Date Chronic combined [...] Acute on chronic systolic heart failure 08/19/2017 detention (current) use of systemic steroids 7 documented as of this encounter (statuses as of 11/18/2020) Resolved Problems Problem Noted Date Resolved Date Symptomatic anemia 10/23/2019 11/07/2019 Chronic right shoulder pain 06/17/2019 06/19/2019 Chest pain 06/11/2019 06/19/2019 Decreased appetite 06/07/2019 06/19/2019 Breast swelling 05/01/2019 05/04/2019 Elevated brain natriuretic peptide (BNP) level 05/01/2019 06/02/2019 Venous stenosis of left upper extremity 08/04/2018 06/19/2019 Overview: Added automatically from request for jony mckee [id number] Fever 05/20/2018 06/02/2019 ESRD (end stage renal [...] as of this encounter (statuses as of 11/18/2020) Immunizations Name Administration Dates Next Due HPV [...] been in contact with No / Unsure 11/17/2020 9:29 AM KITCHEN HELP HANDYMAN someone who 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 documented as of this encounter Last Filed Vital Signs Not on filedocumented in this encounter Plan of Treatment Date Type Specialty Care Team Description 11/20/2020 Nurse Visit Anti-coagulation Clinic Nurse, Guadalupe Antico ag 11/20/2020 Office Visit Orthopedic Surgery Saad Givens MD [address] [place], [place] [address] 12/04/2020 Office Visit Obstetrics & Gynecology Natasha Pelaez PA-C [address] [place] [address] [phone] 12/06/2020 Nurse Visit Infusion Therapy JorgeWu Stanford, SPRING FITTER HELPER [address] [place] [address] [phone] Korin Whitmore Adult Infusion Nurse 01/05/2021 Office Visit Rheumatology Mir Menjivar MD [address] [place] [address] [phone] 10/08/2021 Appointment Radiology Wu Sanz, SPRING FITTER HELPER [address] [place] [address] [phone] 10/08/2021 Appointment Radiology Wu Sanz, SPRING FITTER HELPER [address] [place] [address] [phone] 11/02/2021 Office Visit Orthopedic Surgery JorgeJenifer Fields, SPRING FITTER HELPER [address] [place], [place] 047[address] Health Maintenance Due Date Last Done Comments [...] Name Priority Date/Time Associated Diagnosis Comme nts XR ELBOW >3 VW Routine 11/17/2020 9:31 AM Pain Result s for this RIGHT KITCHEN HELP HANDYMAN procedure are i n the results section. documented in this encounter Results XR ELBOW >3 VW RIGHT (11/17/2020 9:31 AM KITCHEN HELP HANDYMAN) Specimen Impressions Performed At PACS/VR/DOSE Moderate articular irregularity of the c apitellum 10 mm corticated body ventral to the rad iocapitellar joint, possibly a loose body/old fracture fragment. No acute displaced fracture or dislocati on RL: [id number] Narrative Performed At Ordering Physician: JONELLE BA PACS/VR/DOSE HISTORY pain TECHNIQUE: Frontal, lateral and oblique views of the right elbow COMPARISON: None FINDINGS: No acute fracture or dislocation. 10 mm corticated bod y projects ventral to the radiocapitellar joint. There is moderate articular irregularity of the capitellum. No joint effusion identified . Procedure Note [facility], Radiant Results Inft User - 2020 11:56 AM KITCHEN HELP HANDYMAN Ordering Physician: JONELLE BA HISTORY pain TECHNIQUE: Frontal, lateral and oblique views of the right elbow COMPARISON: None FINDINGS: No acute fracture or dislocation. 10 mm corticated body projects ventral to the radiocapitellar joint. There is mode rate articular irregularity of the capitellum. No joint effusion identified . IMPRESSION Moderate articular irregularity of the c apitellum 10 mm corticated body ventral to the rad iocapitellar joint, possibly a loose body/old fracture fragment. No acute displaced fracture or dislocati on RL: [id number] Performing Organization Address City/State/Zipcode Phone Number PACS/VR/DOSE documented in this encounter Visit Diagnoses Diagnosis Pain Generalized pain documented in this encounter Insurance Payer Benefit Plan / Subscriber ID Effective Phone Address T ype Group Dates [facility] [id number] 2020-Pres Medica re HEALTHCARE - HEALTHCARE ent Adv HM O MANAGED DUAL COMPLETE MEDICARE HMO TMHP MEDICAID OF [id number] 2017-Pre [phone] [address] Medi caid [place] sent [phone] [place] [phone] [place] [address] (Home) [place] [address] documented as of this encounter Advance Directives Name Relationship Healthcare Agent Communication Relationship Tony Lewis Father First [facility] Agent (Mobile) Philly Joshua Grandparent [facility] Care Agent Carlos Joshua Sibling [facility] Care Agent (Mobile)
--- OUTSIDE RECORDS SUMMARY | 2020-11-28 11:35 | XMS REPORT | Summary of Care ---
:1995 Author Organization [facility] - Health Address [address] [place] [address] Care Team Providers Name Role Phone Ronni Flood MD Primary Care Provider Reason for Visit Reason Comments LAB WORK Encounter Details Date Type Department Care Team Description 11/17/2020 Fnps Visit LAB SERVICES AT [facility] Terry Grover MD [address] [place] [address] Other acute pulmonary embolism without a cute cor pulmonale; MULTISPECIALTY [facility] Anticoagulation management encounter; CENTER Hypercoagulable state [address] [place] [address] Allergies No Known Allergiesdocumented as of this encounter (statuses as of 11/17/2020) Medications Medication Sig Dispensed Refills Start Date [...] as of this encounter (statuses as of 11/17/2020) Active Problems Problem Noted Date Chronic combined [...] Acute on chronic systolic heart failure 08/19/2017 group home (current) use of systemic steroids 7 documented as of this encounter (statuses as of 11/17/2020) Resolved Problems Problem Noted Date Resolved Date Symptomatic anemia 10/23/2019 11/07/2019 Chronic right shoulder pain 06/17/2019 06/19/2019 Chest pain 06/11/2019 06/19/2019 Decreased appetite 06/07/2019 06/19/2019 Breast swelling 05/01/2019 05/04/2019 Elevated brain natriuretic peptide (BNP) level 05/01/2019 06/02/2019 Venous stenosis of left upper extremity 08/04/2018 06/19/2019 Overview: Added automatically from request for jony mckee [id number] Fever 05/20/2018 06/02/2019 ESRD (end stage renal [...] as of this encounter (statuses as of 11/17/2020) Immunizations Name Administration Dates Next Due HPV [...] with No / Unsure 11/17/2020 9:29 AM DELICATE FABRICS PRESSER someone who 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 documented as of this encounter Last Filed Vital Signs Not on filedocumented in this encounter Nursing Notes Vilma Jenkins - 11/17/2020 2:45 PM CST Venipuncture collection performed by clean technique on the right anticubitus. Total of 1 attempts were made. Slight pressure and a bandage/dressing were applied to the site(s). The patient experiencedno complications. The following specimens were processed according to instructions and sent to [facility] laboratories per lab order on 11/17/20: LT BLUE 1 SST RED LAV PPT DK GREEN (LiHep) DK GREEN (SodH) WOODS DK BLUE (K2) DK BLUE (S) ACD Blood Culture NIPT/NTD documented in this encounter Plan of Treatment Date Type Specialty Care Team Description 11/20/2020 Office Visit Orthopedic Surgery Saad Givens MD [address] [place] [address] [phone] 12/04/2020 Office Visit Obstetrics & Gynecology Natasha Pelaez PA-C [address] [place] [address] [phone] 12/06/2020 Nurse Visit Infusion Therapy JorgeWu Porter, [facility] [address] [place] [address] [phone] Korin Adult Infusion Nurse 01/05/2021 Office Visit Rheumatology Mir Menjivar MD [address] [place] [address] [phone] 10/08/2021 Appointment Radiology JorgeWu Godoy, [address] [address] [phone] 10/08/2021 Appointment Radiology JorgeJensAnderson Wu, [address] [address] [phone] 11/02/2021 Office Visit Orthopedic Surgery JorgeJenifer Fields, [address] 546[address] Health Maintenance Due Date Last Done Comments [...] filedocumented in this encounter Visit Diagnoses Diagnosis Other acute pulmonary embolism without a cute cor pulmonale Anticoagulation management encounter Encounter for therapeutic drug monitorin g Hypercoagulable state Primary hypercoagulable state documented in this encounter Insurance Payer Benefit Plan / Subscriber ID Effective Phone Address T ype Group Dates [facility] [id number] 2020-Pres Medica re HEALTHCARE - HEALTHCARE ent Adv HM O MANAGED DUAL COMPLETE MEDICARE HMO [place] MEDICAID OF [id number] 2017-Pre [phone] P [address] Medi caid [place] sent [id number] [place] [address] documented as of this encounter Advance Directives Name Relationship Healthcare Agent Communication Relationship Tony Lewis Father First [facility] Health Care [phone] Agent (Mobile) Philly Joshua Grandparent Second [facility] Health Care Agent Carlos Joshua Sibling Second [facility] Health Care Agent (Mobile)
--- OUTSIDE RECORDS SUMMARY | 2020-11-28 11:35 | XMS REPORT | Summary of Care ---
:1995 Author Organization [facility] Address [address] [place] [address] Care Team Providers Name Role Phone Ronni Flood MD Primary Care Provider Reason for Visit Reason Comments PT/INR Encounter Details Date Type Department Care Team Description 11/17/2020 Nurse Visit [facility] Gadiel Grover MD [address] [place] [address] Other acute pulmonary embolism without a cute cor pulmonale (Primary Dx); Ajlf-Ayihxkyclpv-UL Nurse, Vtc Anticoag Anticoagulation management encounter; Multispecialty Ctr Hypercoagulable state [facility], [place] [address] Allergies No Known Allergiesdocumented as of this encounter (statuses as of 11/20/2020) Medications Medication Sig Dispensed Refills Start End [...] 10 mg 0 Active by mouth daily. mirtazapine 7.5 mg Take 1 30 tablet [...] peritoneal mouth every dialysis morning and evening. warfarin 2.5 mg Take as 60 tablet 0 Acti ve tabletIndications: directed by 1 Other acute pulmonary AntiCoag embolism without acute Clinic based cor pulmonale on INR results. warfarin 2.5 mg Take as 60 tablet 3 11/17/19 Disc ontinued tabletIndications: directed by 0 21 (Reorder) Other acute pulmonary AntiCoag embolism without acute Clinic based cor pulmonale on INR results. 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 documented as of this encounter Last Filed Vital Signs Not on filedocumented in this encounter Patient Instructions Patient InstructionsElenita Ferreira RN - 11/17/2020 2:20 PM CSTDo not take any warfarin today or tomorrow. Take warfarin 2.5 mg on Friday. Eat a high Vit K food today. Return to clinic on Friday11/20/2020. Go to ER for s/s of bleeding. Change in Warfarin dose:decrease dose to 17.5 mgper week (using 2.5 mg tablets - light green) Friday:2.5 Friday:2.5 mg Friday:5 mg Friday:2.5 :5 Friday:0 Friday:0 Repeat above schedule until you [...] your safety, please remember to call the Antico Clinic if any of your current medications change dose, if you get new medications, or if medications are stopped. There may be interactions with medications that will increase your risk of bleeding or forming blood clots. When you call the clinic([phone]) we will advise you if your INR should be checked sooner than your next scheduled appointment or you may need to adjust your Vitamin K food intake. [facility] Contact Information [facility]-- Elenita [phone] [email or web address] Menchaca [phone] [email or web address] [phone] [email or web address] To schedule appts - [phone] Emergency Dial 911 or go to the nearest Emergency Room STERED MEDICAL ASSISTANT documented in this encounter Progress Notes Elenita Ferreira RN - 11/17/2020 2:20 PM CST ANTI-COAGULATION CLINIC NOTE Anti-Coagulation diagnosis: ICD-10-CM ICD-9-CM 1. Other acute pulmonary embolism without acute cor pulmonale I26.99 415.19 2. Anticoagulation management encounter Z51.81 V58.83 Z79. V58.61 3. Hypercoagulable state D68.59 289.81 Warfarin dose:25mg per week (using 2.5 mg tablets - light green) Friday:5mg Friday:2.5mg ( 1tablet ) Friday:5 mg Friday:2.5mg( 1tablet ) :5mg Friday:2.5mg ( 1tablet ) Friday:2.5mg ( 1tablet ) Cognitive assessment: alert and oriented times 3 Finger stick performed using aseptic technique, sticking left hand, middle finger, and [employer] machine [id number] was used. Blood sample was obtained; Band aid was applied. Strip used today lot number: [id number] POCT PT/INR Date Value Ref Range Status 11/17/2020 6.2 (A) 0.8 - 1.4 INR Final POCT PT/SEC Date Value Ref Range Status 11/17/2020 74.0 SEC Final Anti-Coagulation diagnosis: ICD-10-CM ICD-9-CM 1. Other acute pulmonary embolism without acute cor pulmonale I26.99 415.19 2. Anticoagulation management encounter Z51.81 V58.83 Z79. V58.61 3. Hypercoagulable state D68.59 289.81 Duration of Anticoagulation Therapy As of 11/17/2020 TTR: 32.4 % (1.3 y) Target end date: 12/24/2019 Target Range As of 11/17/2020 INR goal: 2.0-3.0 TTR: 32.4 % (1.3 y) PT/INR greater than therapeutic range STAT venous INR drawn with result of 4.1 Dr. HAAS notified. Pt's INR was 3.8 on 05/12 and dose was held that day and patient was instructed to continue warfarin 25 mg weekly dose as she had been taking pain medication. Pt was to rtc in 1 week but did not. Pt reports she has had car trouble and also did not want to get out due to Covid. Pt's INR today is 6.2, Venous 4.1. Pt stated she did not drink any alcohol, cranberry or grapefuit juice. Pt stated she did not start or stop any medications and has taken coumadin/warfarin as directed. There is no identifiable contributing factor for today's supratherapeutic level. Of note patient has a history of noncompliance and missing clinic appointments. Will have patient hold warfarin today and tomorrow and take warfarin 2.5 mg on Friday and rtc on Friday. Pt will eat a serving of high Vit K food today. Patient will got to ER for s/s of bleeding. Will recheck INR in 3 days. Pt advised of the increased risk of bleeding with supratherapeutic INR. Pt denies any s/s of bleeding (bloody/tarry stools, hematuria, hemoptysis, or bleeding gums) and was advised to seek immediate medical attention if she should fall or if she develops any s/s of bleeding. Pt was advised to go to the Emergency Room if signs and symptoms of bleeding appear. Pt will review and reconcile medication list at next PCP appointment. Patient verbalized understanding and agreement with the plan of care. Change in Warfarin dose:decrease dose to 17.5 mgper week (using 2.5 mg tablets - light green) Friday:2.5 Friday:2.5 mg Friday:5 mg Friday:2.5 :5 Friday:0 Friday:0 Patient notified: yes Patient verbalized understanding and agreement with the plan of care. Patient was provided with written and verbal educational information on November 17, 2020 regarding the interaction of warfarin with [...] 11/20/2020 Nurse Visit Anti-coagulation Clinic Nurse, Guadalupe Terrell ag 11/20/2020 Office Visit Orthopedic Surgery Saad Givens MD [address] [place], [place] [phone] 12/04/2020 Office Visit Obstetrics & Gynecology Natasha Pelaez PA-C [address] [place] [phone] 12/06/2020 Nurse Visit Infusion Therapy JorgeWu Stanford, [address] [address] [phone] 2, Korin Adult Infusion Nurse 01/05/2021 Office Visit Rheumatology Mir Menjivar MD [address] [place] [address] [phone] 10/08/2021 Appointment Radiology Wu Sanz, [address] [address] [phone] 10/08/2021 Appointment Radiology Wu Sanz, [address] [address] [phone] 11/02/2021 Office Visit Orthopedic Surgery Jenifer Sanz, [address] [id number] Name Type Priority Associated Diagnoses Order S chedule POCT LAB Routine Other acute pulmonary 25 Occ urrences starting PT/INR(COAGUCHEK) embolism without acute 11/17/2020 until cor pulmonale 11/17/2021, 1 completed Anticoagulation management encou nter Hypercoagulable state Health Maintenance Due Date Last Done Comments [...] Associated Diagnosis Comme nts POCT PT/INR(COAGUCHEK) Routine 11/17/2020 Other acute pulmon michael Results for this embolism without acute proce dure are in the cor pulmonale results section. Anticoagulation management encou nter Hypercoagulable state documented in this encounter Results PROTHROMBIN TIME / INR (11/17/2020 3:00 PM REGISTERED MEDICAL ASSISTANT) PROTIME PATIENT 48.0 (H) 10.1 - 12.6 [facility] IN[facility] 4.1Comment: Normal [facility] INR <1.1; Warfarin [facility] Therapeutic range [facility] 2.0 to 3.0 or 2.5 to 3.5, depending upon the indications. Specimen Blood - ARM, RIGHT Performing Organization Address City/State/Zipcode Phone Number [facility] CLIA: [id number] [place] [address] [facility] [address] [facility] POCT PT/INR(COAGUCHEK) (11/17/2020) Pathologist Sig nature POCT PT/INR 6.2 (A) 0.8 - 1.4 INR POCT PT/SEC 74.0 SEC Specimen Blood - CAPILLARY documented in this encounter Visit Diagnoses Diagnosis Other acute pulmonary embolism without a cute cor pulmonale - Primary Anticoagulation management encounter Encounter for therapeutic drug monitorin g Hypercoagulable state Primary hypercoagulable state documented in this encounter Insurance Payer Benefit Plan / Subscriber ID Effective Phone Address T ype Group Dates [facility] [id number] 2020-Pres Medica re HEALTHCARE - HEALTHCARE ent Adv HM O MANAGED DUAL COMPLETE MEDICARE HMO TMHP MEDICAID OF [id number] 2017-Pre [phone] P [address] Medi caid [place] sent [phone] [id number] [place] [phone] [place] [address] (Home) [place] [address] documented as of this encounter Advance Directives Name Relationship Healthcare Agent Communication Relationship Tony Lewis Father First [facility] [place] [place] [facility] [phone] Agent (Mobile) Philly Lewis Grandparent Second [facility] [place] [place] [facility] Agent Carlos Lewis Sibling Second [facility] [place] [place] [facility] Agent (Mobile)
--- OUTSIDE RECORDS SUMMARY | 2020-11-28 11:36 | XMS REPORT | Summary of Care ---
:1995 Author Organization [facility] Address [address] [place] [address] Care Team Providers Name Role Phone Ronni Flood MD Primary Care Provider Reason for Visit Reason Comments Follow-up right elbow Encounter Details Date Type Department Care Team Description 11/20/[address] [facility] Saad Givens Loose body in elbow joint, right (Primary Dx); Orthopaedic Surgery- MD Luis Angel Arthritis of right elbow [address] [phone] Allergies No Known Allergiesdocumented as of this [...] Acute on chronic systolic heart failure 08/19/2017 [facility] (current) use of systemic steroids 7 documented [...] Added automatically from request for jony mckee [id number] Fever 05/20/2018 06/02/2019 ESRD (end stage renal [...] with No / Unsure 11/20/2020 3:23 PM CUSTOM TAILOR APPRENTICE someone who 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 documented as of this encounter Last Filed Vital Signs Vital Sign Reading Time Taken Comments Blood Pressure - - Pulse - - Temperature 35.7 C (96.3 F) 11/20/2020 3:33 PM CUSTOM TAILOR APPRENTICE Respiratory Rate - - Oxygen Saturation - - Inhaled Oxygen Concentration - - Weight 50.8 kg (112 lb) 11/20/2020 3:33 PM CUSTOM TAILOR APPRENTICE Height 157.5 cm (5' 2") 11/20/2020 3:33 PM CUSTOM TAILOR APPRENTICE Body Mass Index 20.49 11/20/2020 3:33 PM CUSTOM TAILOR APPRENTICE documented in this encounter Progress Notes Susan Saunders MD - 11/20/2020 4:00 PM CST NEW PATIENT CLINIC NOTE Chief Complaint: Right elbow pain History of Present Illness Ashley Lewis is a 25 year old female referred by Dr. Ba with complaint of right elbowpain. She describes her pain as achy pain, worsened with range of motion and weight bearing. Her pain has been present for years, but has worsened significant over the last couple weeks. She admits to episodes of locking, but is unable to loosen the elbow due to pain. She denies prior trauma or injury. Denies numbness or tingling. She has a history of Lupus and a left TKA. Has history of PE 1.5 years ago for which she is still on warfarin. Past Medical History: Past Medical History: Diagnosis Date Anemia Arthritis knees/elbows AV fistula Left upper arm. CHF (congestive heart failure) 2018 Esophageal reflux ESRD (end stage renal disease) Hypertension meds for heart rate and cardiac muscle disorder Lupus (systemic lupus erythematosus) Nephritis Pain Peritoneal dialysis catheter in place Transfusion history Past Surgical History: Past Surgical History: Procedure Laterality Date ARTERIOVENOUS FISTULA CREATION 02/25/2017 CENTRAL VENOUS ACCESS CATHETER PLACEMENT Left 02/25/2017 Surgeon: Juan C Miller MD; Location: [facility] OR Location ESOPHAGOGASTRODUODENOSCOPY N/A 01/03/2017 Surgeon: Elizabeth Nelson MD; Location: [facility] OR Location KIDNEY BIOPSY PERITONEAL DIALYSIS 02/09/2019 TOTAL KNEE ARTHROPLASTY Left VEIN TRANSPOSITION 02/25/2017 VENOGRAM N/A 03/12/2017 Surgeon: Juan C Miller MD; Location: [facility] OR Location Allergies No Known Allergies Medications Current Outpatient Medications Medication Sig Dispense Refill warfarin 2.5 mg tablet Take as directed by AntiCoag Clinic based on INR results. 60 tablet 0 furosemide 40 mg tablet Take 1.5 tablets by mouth every morning and evening. 90 tablet 0 hydrOXYchloroQUINE 200 mg tablet Take 1 tablet by mouth daily. 90 tablet 1 predniSONE 1 mg tablet Take 2 tablets by mouth daily. 180 tablet 1 carvediloL 25 mg tablet Take 1 tablet by mouth 2 (two) times daily with meals. 60 tablet 5 azaTHIOprine 50 mg tablet Take 1 tablet by mouth daily. 90 tablet 1 mirtazapine 7.5 mg tablet Take 1 tablet by mouth at bedtime. 30 tablet 3 ramipril 10 mg capsule Take 10 mg by mouth daily. omeprazole (PRILOSEC OTC) 20 mg tablet Take 1 tablet by mouth daily. 90 tablet 0 Cholecalciferol, Vitamin D3, (VITAMIN D3) 5,000 unit tablet Take by mouth. aspirin 81 mg EC tablet Take 81 mg by mouth daily. No current facility-administered medications for this visit. Social History Social History Tobacco Use Smoking status: Never Smoker Smokeless tobacco: Never Used Substance Use Topics Alcohol use: No Alcohol/week: 0.0 standard drinks Drug use: No Family History Not pertinent to this encounter. REVIEW OF SYSTEMS Admits: MSK: Per HPI Skin: Reports skin disease Hematologic: Reports blood clots All other systems were reviewed and are negative PHYSICAL EXAMINATIONS Temp: [35.7 C (96.3 F)] Constitutional: NAD, well-nourished Cardiovascular: Pulses present, brisk capillary refill in extremities Respiratory: Breaths nonlabored, symmetrical chest expansion Skin: warm and dry, no rashes or lesions. Psychiatric: A&OX3, appropriate affect Neck: trachea midline, no visible lymphadenopathy Musculoskeletal: Right Elbow ROM 50-150 Supination 60 Pronation 60 Motor intact m/r/u/ain/pin SILT m/r/u 2+ radial pulse IMAGING Xray: Right elbow - moderate/severe right elbow arthritis with large anterior loose body. ASSESSMENT Ashley Lewis is a 25 year old female with history of Lupus with moderate right elbow arthritis and large anterior loose body PLAN: Discussed clinical and radiographic findings with patient in detail Educated on condition present and decided on the following treatment plan: Dicussed operative versus nonoperative treatment with the patient in detail Discussed right elbow arthroscopic vs open loose body removal, possible capsular release, possible posterior osteophyte removal Explained that surgery will help with pain, but may not necessarily improve her range of motion. Explained also that she will have continued pain due to her arthritis Patient understands and wishes to proceed with surgical intervention CT right elbow ordered for surgical planning Consent form obtained Advised patient to follow up with PCP to address warfarin. Ideally, if patient is still requiring anticoagulation, would recommend transitioning to lovenox that may be held the morning of surgery. All findings discussed with patient at the time of visit and all questions answered F/u 2 weeks postop Susan Saunders MD Orthopaedic Surgery PGY-4 OM TAILOR APPRENTICE documented in this encounter Plan of Treatment Date Type Specialty Care Team Description 11/23/2020 Nurse Visit Anti-coagulation Clinic Nurse, Guadalupe Antico ag 12/04/2020 Office Visit Obstetrics & Gynecology Natasha Pelaez PA-C [address] [place] [address] [phone] 12/06/2020 Nurse Visit Infusion Therapy Jorge-KunjuWu schuster, ENTHONE SOLDER STRIPPER [address] [place] [address] [phone] Haim Korin Adult Infusion Nurse 01/05/2021 Office Visit Rheumatology Mir Menjivar MD [address] [place] [address] [phone] 10/08/2021 Appointment Radiology JorgeJenniferWu adam, [facility] [address] [place] [address] [phone] 10/08/2021 Appointment Radiology Jorge-Kunkia Wu, ENTHONE SOLDER STRIPPER [address] [place] [address] [phone] 11/02/2021 Office Visit Orthopedic Surgery Jorge-Kunkia Jenifer joy, [address] [address] [phone] Health Maintenance Due Date Last Done Comments [...] filedocumented in this encounter Visit Diagnoses Diagnosis Loose body in elbow joint, right - Prima ry Arthritis of right elbow Unspecified arthropathy, upper arm documented in this encounter Insurance Payer Benefit Plan / Subscriber ID Effective Phone Address T ype Group Dates [facility] [id number] 2020-Pres Medica re HEALTHCARE - HEALTHCARE ent Adv HM O MANAGED DUAL COMPLETE MEDICARE HMO TMHP MEDICAID OF [id number] 2017-Pre [phone] Medi caid [place] sent [phone] [place] [address] documented as of this encounter Advance Directives Name Relationship Healthcare Agent Communication Relationship Tony Lewis Father [facility] [phone] Agent (Mobile) Philly Joshua Grandparent [facility] Agent Carlos Lewis Sibling [facility] Agent (Mobile)
--- OUTSIDE RECORDS SUMMARY | 2020-11-28 11:36 | XMS REPORT | Summary of Care ---
:1997 Author Organization [facility] Address [address] [place] [address] Care Team Providers Name Role Phone Ronni Flood MD Primary Care Provider Reason for Visit Reason Comments Elbow Pain Right Encounter Details Date Type Department Care Team Description 11/17/2020 Office Visit [facility] Orthopaedic Jonelle Ba I nternal derangement Surgery- Lesli Arellano MD of elbow (Primary Dx) [address], [address] [place] [address] [place] [address] [place], [place] [phone] Allergies No Known Allergiesdocumented as of this [...] on chronic systolic heart failure 08/19/2017 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 documented as of this encounter Last Filed Vital Signs Vital Sign Reading Time Taken Comments Blood Pressure 112/58 11/17/2020 9:40 AM MOLD CHIPPER Pulse 94 11/17/2020 9:40 AM MOLD CHIPPER Temperature - - Respiratory Rate - - Oxygen Saturation - - Inhaled Oxygen Concentration - - Weight 49.9 kg (110 lb) 11/17/2020 9:40 AM MOLD CHIPPER Height 157.5 cm (5' 2") 11/17/2020 9:40 AM MOLD CHIPPER Body Mass Index 20.12 11/17/2020 9:40 AM MOLD CHIPPER documented in this encounter Progress Notes Jonelle Ba MD - 11/17/2020 9:30 AM CST Cc: Chief Complaint Patient presents with Elbow Pain Right Vitals: 11/17/20 0940 BP: 112/58 Pulse: 94 Weight: 49.9 kg (110 lb) Height: 62" (157.5 cm) [id number] - [place], [place] - [facility] Jennifer DUGAN AT [facility] [address] Incident occurred: noticed rt elbow pain about 2 weeks ago Incident location: home Injury mechanism: no injury Pain location: right elbow DME status: n/a Radiology status: epic All Vitals taken, allergies and all medications reviewed, fall risk assessed. Pain level 4. Kimberly Hwang MA 11/17/2020 9:42 AM Ashley Lewis is a 25 year old female. Elbow Pain This is a recurrent problem. The current episode started 1 to 4 weeks ago. The problem occurs intermittently. The problem has been gradually worsening. Associated symptoms include joint swelling. The symptoms are aggravated by twisting and bending. She has tried rest, relaxation, position changes, immo bilization, ice, heat and acetaminophen for the symptoms. Allergies Ashley has No Known Allergies. Medications Outpatient Medications Prior to Visit Medication Sig Dispense Refill furosemide 40 mg [...] Take 81 mg by mouth daily. No facility-administered medications prior to visit. Histories Past Medical History: Diagnosis Date Anemia Arthritis knees/elbows AV fistula Left upper arm. CHF (congestive heart failure) 2018 Esophageal reflux ESRD (end stage renal disease) Hypertension meds for heart rate and cardiac muscle disorder Lupus (systemic lupus erythematosus) Nephritis Pain Peritoneal dialysis catheter in place Transfusion history Past Surgical History: Procedure Laterality Date ARTERIOVENOUS FISTULA CREATION 02/25/2017 CENTRAL VENOUS ACCESS CATHETER PLACEMENT Left 02/25/2017 Surgeon: Juan C Miller MD; Location: [facility] OR Location ESOPHAGOGASTRODUODENOSCOPY N/A 01/03/2017 Surgeon: Elizabeth Nelson MD; Location: [facility] OR Location KIDNEY BIOPSY PERITONEAL DIALYSIS 02/09/2019 TOTAL KNEE ARTHROPLASTY Left VEIN TRANSPOSITION 02/25/2017 VENOGRAM N/A 03/12/2017 Surgeon: Juan C Miller MD; Location: [facility] OR Location Social History Socioeconomic History Marital status: Single [...] file Gets together: Not on file Attends alevism service: Not on file Active member of [...] Paternal Grandfather No Significant Medical Problems Sister Review of Systems Constitutional: Negative. HENT: Negative. Eyes: Negative. Respiratory: Negative. Breasts: Negative. Cardiovascular: Negative. Gastrointestinal: Negative. Genitourinary: Negative. Musculoskeletal: Positive for joint swelling. Skin: Negative. Neurological: Negative. Psychiatric/Behavioral: Negative. Endocrine: Endocrine negative Vital Signs BP 112/58 | Pulse 94 | Ht 62" (157.5 cm) | Wt 49.9 kg (110 lb) | BMI 20.12 kg/m Physical Exam Musculoskeletal: Right elbow: She exhibits decreased range of motion, swelling and deformity. Tenderness found. Comments: General: Well-developed well-nourished oriented to person place and time HEENT normocephalic atraumatic atraumatic pupils equal round reactive to light extraocular muscles intact Cervical thoracic and lumbar spine without focal deficit normal kyphosis and lordosis Chest clear to auscultation and percussion Cardiovascular regular rate and rhythm without gallop rub or murmur soft without organomegaly Normal bowel sounds Neurologic: Focal myotome or dermatomal deficits Vascular: Intact symmetrical bilateral upper and lower extremities Skin without stasis varicosities or breakdown Extremities without cyanosis clubbing or edema Lymphatics no peripheral lymphedema Psych normal mood and affect. Neurovascular function is intact. To include brisk capillary refill warm pink skin active motor function and sensory function intact. Ordering Physician: JONELLE BA HISTORY pain TECHNIQUE: Frontal, lateral and oblique views of the right elbow COMPARISON: None FINDINGS: No acute fracture or dislocation. 10 mm corticated body projects ventral to the radiocapitellar joint. There is moderate articular irregularity of the capitellum. No joint effusion identified. IMPRESSION Moderate articular irregularity of the capitellum 10 mm corticated body ventral to the radiocapitellar joint, possibly a loose body/old fracture fragment. No acute displaced fracture or dislocation RL: [id number] Assessment/Plan Internal derangement of the right elbow Referral for an elbow APA. Residual effects of JRA. Follow up prn. documented in this encounter Plan of Treatment Date Type Specialty Care Team Description 11/23/2020 Nurse Visit Anti-coagulation Clinic Nurse, Mrearyc Antico ag 12/04/2020 Office Visit Obstetrics & Gynecology Natasha Pelaez PA-C [address] [place] [address] [phone] 12/06/2020 Nurse Visit Infusion Therapy Kandi on, Wu, AGUILA [address] [place] [address] [phone] 2, Korin Adult Infusion Nurse 01/05/2021 Office Visit Rheumatology Mir Menjivar MD [address] [place] [address] [phone] 10/08/2021 Appointment Radiology Jorge-KunWu adam, AGUILA [address] [place] [address] [phone] 10/08/2021 Appointment Radiology Wu Sanz FNP [address] [place] [address] [phone] 11/02/2021 Office Visit Orthopedic Surgery JorgeJensJenifer Barron FNP [address] [place] [address] [phone] Health Maintenance Due Date Last Done Comments [...] filedocumented in this encounter Visit Diagnoses Diagnosis Internal derangement of elbow - Primary Unspecified derangement, upper arm joint documented in this encounter Insurance Payer Benefit Plan / Subscriber ID Effective Phone Address T ype Group Dates [facility] [id number] 2020-Pres Medica re HEALTHCARE - HEALTHCARE ent Adv HM O MANAGED DUAL COMPLETE MEDICARE HMO [facility] MEDICAID OF [id number] 2017-Pre [phone] [address] Medi caid [place] sent [phone] [place] [address] documented as of this encounter Advance Directives Name Relationship Healthcare Agent Communication Relationship Tony Lewis Father First [facility] Care [phone] Agent (Mobile) Philly Joshua Grandparent Second [facility] Care Agent Carlos Lewis Sibling [facility] [phone] Care Agent (Mobile)
--- OUTSIDE RECORDS SUMMARY | 2020-11-28 11:36 | XMS REPORT | Summary of Care ---
:1997 Author Organization [facility] Address [address] [place] [address] Care Team Providers Name Role Phone Ronni Flood MD Primary Care Provider Reason for Visit Reason Comments Elbow Pain Right Encounter Details Date Type Department Care Team Description 11/17/2020 Office Visit [facility] Orthopaedic Jonelle Ba I nternal derangement Surgery- Lesli Arellano MD of elbow (Primary Dx) [address] [place], [address] [place] [place] [address] [place], [place] [phone] Allergies No Known Allergiesdocumented as of this [...] Acute on chronic systolic heart failure 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 documented as of this encounter Last Filed Vital Signs Vital Sign Reading Time Taken Comments Blood Pressure 112/58 11/17/2020 9:40 AM VACUUM CLEANER REPAIRER Pulse 94 11/17/2020 9:40 AM VACUUM CLEANER REPAIRER Temperature - - Respiratory Rate - - Oxygen Saturation - - Inhaled Oxygen Concentration - - Weight 49.9 kg (110 lb) 11/17/2020 9:40 AM VACUUM CLEANER REPAIRER Height 157.5 cm (5' 2") 11/17/2020 9:40 AM VACUUM CLEANER REPAIRER Body Mass Index 20.12 11/17/2020 9:40 AM VACUUM CLEANER REPAIRER documented in this encounter Progress Notes Jonelle Ba MD - 11/17/2020 9:30 AM CST Cc: Chief Complaint Patient presents with Elbow Pain Right Vitals: 11/17/20 0940 BP: 112/58 Pulse: 94 Weight: 49.9 kg (110 lb) Height: 62" (157.5 cm) [facility] #[id number] - [place], [place] - [facility] Jennifer DUGAN AT [facility] OF [address] Incident occurred: noticed [...] 02/25/2017 Surgeon: Juan C Miller MD; Location: [facility] OR Location ESOPHAGOGASTRODUODENOSCOPY N/A 01/03/2017 Surgeon: Elizabeth Nelson MD; Location: [facility] OR Location KIDNEY BIOPSY PERITONEAL DIALYSIS 02/09/2019 TOTAL KNEE ARTHROPLASTY Left VEIN TRANSPOSITION 02/25/2017 VENOGRAM N/A 03/12/2017 Surgeon: Juan C Miller MD; Location: [facility] OR Location Social History Socioeconomic History Marital [...] file Gets together: Not on file Attends sabianist service: Not on file Active member of [...] Description 11/23/2020 Nurse Visit Anti-coagulation Clinic Nurse, Meraryc Antico ag 12/04/2020 Office Visit Obstetrics & Gynecology Natasha Pelaez PA-C [address] [place] [address] [phone] 12/06/2020 Nurse Visit Infusion Therapy Kandi on, Wu, AGUILA [address] [place] [address] [phone] 2, Korin Adult Infusion Nurse 01/05/2021 Office Visit Rheumatology Mir Menjivar MD [address] [place] [address] [phone] 10/08/2021 Appointment Radiology Jorge-KunWu adam, AGUILA [address] [place] [address] [phone] 10/08/2021 Appointment Radiology Wu Sanz FNP [address] [place] [address] [phone] 11/02/2021 Office Visit Orthopedic Surgery JorgeJensJenifer Barron FNP [address] [place] [address] [phone] Health Maintenance Due Date Last Done Comments [...] Effective Phone Address T ype Group Dates [facility] [id number] 2020-Pres Medica re HEALTHCARE - HEALTHCARE ent Adv HM O MANAGED DUAL COMPLETE MEDICARE HMO [facility] MEDICAID OF [id number] 2017-Pre [phone] [address] Medi caid [place] sent [phone] [place] [address] documented as of this encounter Advance Directives Name Relationship Healthcare Agent Communication Relationship Tony Lewis Father [facility] Care [phone] Agent (Mobile) Philly Joshua Grandparent [facility] Care Agent Carlos Lewis Sibling [facility] Care Agent (Mobile)
--- OUTSIDE RECORDS SUMMARY | 2020-11-28 11:37 | XMS REPORT | Summary of Care ---
:1997 Author Organization [facility] Address [address] [place] [address] Care Team Providers Name Role Phone Ronni Flood MD Primary Care Provider Reason for Visit Reason Comments Follow-up right elbow Encounter Details Date Type Department Care Team Description 11/20/2020 Office Visit [facility] Saad Givens Loose body in elbow joint, right (Primary Dx); Orthopaedic Surgery- MD Luis Angel Arthritis of right elbow [address] [phone] Allergies No Known Allergiesdocumented as of this [...] Added automatically from request for jony mckee [id number] Fever 05/20/2018 06/02/2019 ESRD (end stage renal [...] with No / Unsure 11/20/2020 3:23 PM ASSEMBLER WATCH TRAIN someone who 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 documented as of this encounter Last Filed Vital Signs Vital Sign Reading Time Taken Comments Blood Pressure - - Pulse - - Temperature 35.7 C (96.3 F) 11/20/2020 3:33 PM ASSEMBLER WATCH TRAIN Respiratory Rate - - Oxygen Saturation - - Inhaled Oxygen Concentration - - Weight 50.8 kg (112 lb) 11/20/2020 3:33 PM ASSEMBLER WATCH TRAIN Height 157.5 cm (5' 2") 11/20/2020 3:33 PM ASSEMBLER WATCH TRAIN Body Mass Index 20.49 11/20/2020 3:33 PM ASSEMBLER WATCH TRAIN documented in this encounter Progress Notes Susan [...] 02/25/2017 Surgeon: Juan C Miller MD; Location: [facility] OR Location ESOPHAGOGASTRODUODENOSCOPY N/A 01/03/2017 Surgeon: Elizabeth Nelson MD; Location: [facility] OR Location KIDNEY BIOPSY PERITONEAL DIALYSIS 02/09/2019 TOTAL KNEE ARTHROPLASTY Left VEIN TRANSPOSITION 02/25/2017 VENOGRAM N/A 03/12/2017 Surgeon: Juan C Miller MD; Location: [facility] OR Location Allergies No Known Allergies Medications [...] postop Susan Saunders MD Orthopaedic Surgery PGY-4 MBLER WATCH TRAIN documented in this encounter Plan of Treatment Date Type Specialty Care Team Description 11/23/2020 Nurse Visit Anti-coagulation Clinic Nurse, Guadalupe Antico ag 12/04/2020 Office Visit Obstetrics & Gynecology Natasha Pelaez PA-C [address] [place] [address] [phone] 12/06/2020 Nurse Visit Infusion Therapy Jorge-KunjuWu schuster, DIRECTOR OF STRATEGIC ALLIANCES [address] [place] [address] [phone] Haim Korin Adult Infusion Nurse 01/05/2021 Office Visit Rheumatology Mir Menjivar MD [address] [place] [address] [phone] 10/08/2021 Appointment Radiology JorgeJenniferWu adam, [facility] [address] [place] [address] [phone] 10/08/2021 Appointment Radiology Jorge-Kunkia Wu, DIRECTOR OF STRATEGIC ALLIANCES [address] [place] [address] [phone] 11/02/2021 Office Visit Orthopedic Surgery Jorge-Kunkia Jneifer joy, [address] [address] [phone] Health Maintenance Due Date Last Done Comments [...] Effective Phone Address T ype Group Dates [facility] [id number] 2020-Pres Medica re HEALTHCARE - HEALTHCARE ent Adv HM O MANAGED DUAL COMPLETE MEDICARE HMO [employer] MEDICAID OF [id number] 2017-Pre [phone] [address] Medi caid [place] sent [phone] [place] [address] documented as of this encounter Advance Directives Name Relationship Healthcare Agent Communication Relationship Tony Lewis Father First [facility] Health Care [phone] Agent (Mobile) Philly Joshua Grandparent Second [facility] Health Care Agent Carlos Lewis Sibling [facility] Health Care Agent (Mobile)
--- OUTSIDE RECORDS SUMMARY | 2020-11-28 11:37 | XMS REPORT | Summary of Care ---
:1995 Author Organization [facility] - Health Address [address] [place] [address] Care Team Providers Name Role Phone Ronni Flood MD Primary Care Provider Encounter Details Date Type Department Care Team Description 11/20/2020 Orders Only [facility] Doctor Unassigned, No [address] [facility] [place] [address] [address] [place] [address] Allergies No Known Allergiesdocumented as of this encounter (statuses as of 11/22/2020) Medications Medication Sig Dispensed Refills Start Date [...] as of this encounter (statuses as of 11/22/2020) Active Problems Problem Noted Date Chronic combined [...] as of this encounter (statuses as of 11/22/2020) Resolved Problems Problem Noted Date Resolved Date Symptomatic anemia 10/23/2019 11/07/2019 Chronic right shoulder pain 06/17/2019 06/19/2019 Chest pain 06/11/2019 06/19/2019 Decreased appetite 06/07/2019 06/19/2019 Breast swelling 05/01/2019 05/04/2019 Elevated brain natriuretic peptide (BNP) level 05/01/2019 06/02/2019 Venous stenosis of left upper extremity 08/04/2018 06/19/2019 Overview: Added automatically from request for jony mckee [id number] Fever 05/20/2018 06/02/2019 ESRD (end stage renal disease) 09/05/2017 9 SLE (systemic lupus erythematosus related syndrome) 09/05/20 06/02/2019 Breast pain in female 08/19/2017 05/04/2019 [...] as of this encounter (statuses as of 11/22/2020) Immunizations Name Administration Dates Next Due HPV [...] with No / Unsure 11/20/2020 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 documented as of this encounter Last Filed Vital Signs Not on filedocumented in this encounter Plan of Treatment Date Type Specialty Care Team Description 11/23/2020 Nurse Visit Anti-coagulation Nurse, [facility] Anticoag 11/30/2020 Office Visit Family Medicine Lucy Darby MD [address] [place] [address] [phone] 12/04/2020 Office Visit Obstetrics & Natasha Pelaez, Gynecology ALESHA [address] [place] [phone] 12/06/2020 Nurse Visit Infusion Therapy Wu Trejo, AGUILA [address] [place] [address] [phone] 2, Korin Adult Infusion Nurse 12/08/2020 Laboratory Only Phlebotomy Only, Lcc Test 12/13/2020 Hospital Encounter Surgery Saad Givens MD [address] [place] [address] [phone] 12/13/2020 Surgery Surgery Saad Givens ELBOW ARTHR JORDON Plasencia MD [address] [place] [address] [phone] 12/28/2020 Office Visit Orthopedic Surgery Honorio Jennings MD [address] [address] [phone] 01/05/2021 Office Visit Rheumatology Mir Menjivar MD [address] [place] [phone] 10/08/2021 Appointment Radiology JorgeTootieWu byrne, [facility] [address] [place] [address] [phone] 10/08/2021 Appointment Radiology Jorge-Wu Barron, [address] [address] [phone] 11/02/2021 Office Visit Orthopedic Surgery Jorge-Wu Barron, [address] [address] [phone] Health Maintenance Due Date Last Done Comments VARICELLA VACCINES (1 of 2 - 1998 2-dose childhood series) MENINGOCOCCAL B VACCINES (1 of 2 - 2007 Risk Bexsero 2-dose series) HPV VACCINES (2 - 2-dose series) 08/13/2012 02/12/2012 SARS-CoV-2 (COVID-19) Vaccine (1 2013 of 2) DTaP,Tdap,and Td Vaccines (1 - 2016 Tdap) PNEUMOCOCCAL 0-64 YEARS COMBINED 2017 2016, SERIES (3 of 3 - PCV13) INFLUENZA VACCINE (#1) 2020 07/16/2017, 09/19/2016, 2016, Additional history exists CHLAMYDIA SCREENING 12/03/2020 12/03/2019 Depression Screening 02/13/2021 02/14/2020 PAP SMEAR 12/03/2022 12/03/2019 documented as of this encounter Procedures Procedure Name Priority Date/Time Associated Diagnosis Comme nts PATIENT QUESTIONNAIRE Routine 11/20/2020 12:01 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 documented in this encounter Results Not on filedocumented in this encounter Insurance Payer Benefit Plan / Subscriber ID Effective Phone Address T ype Group Dates [facility] [id number] 2020-Pres Medica re HEALTHCARE - HEALTHCARE ent Adv HM O MANAGED DUAL COMPLETE MEDICARE HMO TMHP MEDICAID OF [id number] 2017-Pre [phone] Medi caid [place] sent [phone] [place] [address] [employer] [id number] 2020-Pre Medicare MPLEX MEDICAL sent Adv HM O CONDITIONS documented as of this encounter Advance Directives Name Relationship Healthcare Agent Communication Relationship Tony Lewis Father First [facility] Health Care Agent (Mobile) Philly Joshua Grandparent Second [facility] Health Care Agent [place] Joshua Sibling Second [facility] Health Care Agent (Mobile)
--- OUTSIDE RECORDS SUMMARY | 2020-11-28 11:38 | XMS REPORT | Summary of Care ---
:1995 Author Organization [facility] Address [address] [place] [address] Care Team Providers Name Role Phone Ronni Flood MD Primary Care Provider Reason for Visit Reason Comments PT/INR Encounter Details Date Type Department Care Team Description 11/23/2020 Nurse Visit [facility] Gadiel Grover MD [address] [place] [address] Other acute pulmonary embolism without a cute cor pulmonale; Xjaw-Odlxqsgxqrv-XJ Nurse, [facility] Anticoag Anticoagulation management encounter; [facility] Hypercoagulable state [facility], [place] [address] Allergies No Known Allergiesdocumented as of this encounter (statuses as of 11/23/2020) Medications Medication Sig Dispensed Refills Start Date [...] as of this encounter (statuses as of 11/23/2020) Active Problems Problem Noted Date Chronic combined [...] Acute on chronic systolic heart failure 08/19/2017 [employer]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 7 documented as of this encounter (statuses as of 11/23/2020) Resolved Problems Problem Noted Date Resolved Date Symptomatic anemia 10/23/2019 11/07/2019 Chronic right shoulder pain 06/17/2019 06/19/2019 Chest pain 06/11/2019 06/19/2019 Decreased appetite 06/07/2019 06/19/2019 Breast swelling 05/01/2019 05/04/2019 Elevated brain natriuretic peptide (BNP) level 05/01/2019 06/02/2019 Venous stenosis of left upper extremity 08/04/2018 06/19/2019 Overview: Added automatically from request for jony mckee [id number] Fever 05/20/2018 06/02/2019 ESRD (end stage renal [...] as of this encounter (statuses as of 11/23/2020) Immunizations Name Administration Dates Next Due HPV [...] been in contact with No / Unsure 11/23/2020 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 documented as of this encounter Last Filed Vital Signs Not on filedocumented in this encounter Patient Instructions Patient InstructionsElenita Ferreira RN - 11/23/2020 2:00 PM CSTWarfarin dose: 21.25 mgper week (using 2.5 mg tablets - light green) Friday:3.75 mg ( 1 and 1/2 tablets ) Friday:2.5 mg Friday:3.75 mg ( 1 and 1/2 tablets ) Friday:2.5 mg :3.75 mg ( 1 and 1/2 tablets ) Friday:2.5 mg Friday:2.5 mg Repeat above schedule until you return for [...] your safety, please remember to call the [facility] if any of your current medications change dose, if you get new medications, or if medications are stopped. There may be interactions with medications that will increase your risk of bleeding or forming blood clots. When you call the clinic([phone]) we will advise you if your INR should be checked sooner than your next scheduled appointment or you may need to adjust your Vitamin K food intake. [facility] Contact Information [facility]-- Elenita [phone] [email or web address] [place] [phone] [email or web address] King [phone] [email or web address] To schedule appts - [phone] Emergency Dial 911 or go to the nearest Emergency Room STOCK SLAUGHTERER documented in this encounter Progress Notes Elenita Ferreira RN - 11/23/2020 2:00 PM CST ANTI-COAGULATION CLINIC NOTE Anti-Coagulation diagnosis: ICD-10-CM ICD-9-CM 1. Other acute pulmonary embolism without acute cor pulmonale I26.99 415.19 2. Anticoagulation management encounter Z51.81 V58.83 Z79.01 V58.61 3. Hypercoagulable state D68.59 289.81 Warfarin (Coumadin) dose: 21.25 mgper week (using 2.5 mg tablets - light green) Friday:2.5 mg Friday:5 mg ( 2 tablets ) Friday:5 mg ( 2 tablets ) Friday:3.75 mg ( 1 and 1/2 tablets ) :5 mg Friday:0 Friday:0 Cognitive assessment: alert and oriented times 3 Finger stick performed using aseptic technique, sticking left hand, middle finger, and CoaguChek XS machine [id number] was used. Blood sample was obtained; Band aid was applied. Strip used today lot number: [id number] POCT PT/INR Date Value Ref Range Status 11/23/2020 2.2 (A) 0.8 - 1.4 INR Final POCT PT/SEC Date Value Ref Range Status 11/23/2020 25.9 SEC Final Anti-Coagulation diagnosis: ICD-10-CM ICD-9-CM 1. Other acute pulmonary embolism without acute cor pulmonale I26.99 415.19 2. Anticoagulation management encounter Z51.81 V58.83 Z79.01 V58.61 3. Hypercoagulable state D68.59 289.81 Duration of Anticoagulation Therapy As of 11/23/2020 TTR: 32.3 % (1.3 y) Target end date: 12/24/2019 Target Range As of 11/23/2020 INR goal: 2.0-3.0 TTR: 32.3 % (1.3 y) PT/INR within therapeutic range Pt stated no medication, supplement, vitamin, or herb has been added, deleted, or dose changed that would interact with warfarin since last AntiCoag Clinic visit. Pt will review and reconcile medication list at next PCP appointment. Patient verbalized understanding and agreement with the plan of care. Warfarin dose: 21.25 mgper week (using 2.5 mg tablets - light green) Friday:3.75 mg ( 1 and 1/2 tablets ) Friday:2.5 mg Friday:3.75 mg ( 1 and 1/2 tablets ) Friday:2.5 mg :3.75 mg ( 1 and 1/2 tablets ) Friday:2.5 mg Friday:2.5 mg Patient notified: yes Patient verbalized understanding and agreement with the plan of care. Patient was provided with written and verbal educational information on November 23, 2020 regarding the interaction of warfarin with [...] Treatment Date Type Specialty Care Team Description 11/30/2020 Office Visit Family Medicine Lucy Darby MD [address] [place] [address] [phone] 12/04/2020 Office Visit Obstetrics & Natasha Pelaez, Gynecology GHADA-Aj [address] [place] [address] [phone] 12/06/2020 Nurse Visit Infusion Therapy Kandi on, Wu, AGUILA [address] [place] [address] [phone] 2, Korin Adult Infusion Nurse 12/06/2020 Nurse Visit Anti-coagulation Nurse, [facility] Anticoag 12/08/2020 Laboratory Only Phlebotomy Only, Lcc Test 12/13/2020 Hospital Encounter Surgery Saad Givens MD [address] [place] [address] [phone] 12/13/2020 Surgery Surgery Saad Givens ELBOW ARTHR JORDON Plasencia MD [address] [place] [address] [phone] 12/28/2020 Office Visit Orthopedic Surgery Honorio Jennings MD [address] [place] [address] [phone] 01/05/2021 Office Visit Rheumatology Mir Menjivar MD [address] [place] [phone] 10/08/2021 Appointment Radiology Wu Sanz, MARKETING COORDINATOR [address] [place] [address] [phone] 10/08/2021 Appointment Radiology Wu Sanz, MARKETING COORDINATOR [address] [place] [address] [phone] 11/02/2021 Office Visit Orthopedic Surgery Wu Sanz, MARKETING COORDINATOR [address] [place] [address] [phone] Health Maintenance Due Date Last Done Comments [...] Associated Diagnosis Comme nts POCT PT/INR(COAGUCHEK) Routine 11/23/2020 Other acute pulmon michael Results for this embolism without acute proce dure are in the cor pulmonale results section. Anticoagulation management encou nter Hypercoagulable state documented in this encounter Results POCT PT/INR(COAGUCHEK) (11/23/2020) Pathologist Sig nature POCT PT/INR 2.2 (A) 0.8 - 1.4 INR POCT PT/SEC 25.9 SEC Specimen Blood - CAPILLARY documented in this encounter Visit Diagnoses Diagnosis Other acute pulmonary embolism without a cute cor pulmonale Anticoagulation management encounter Encounter for therapeutic drug monitorin g Hypercoagulable state Primary hypercoagulable state Loose body of right elbow Loose body in upper arm joint Arthritis of right elbow Unspecified arthropathy, upper arm documented in this encounter Insurance Payer Benefit Plan / Subscriber ID Effective Phone Address T ype Group Dates [facility] [id number] 2020-Pres Medica HEALTHCARE - HEALTHCARE ent Adv HM O MANAGED DUAL COMPLETE MEDICARE HMO [place] [id number] 2017-Pre [phone] Medi caid [place] sent [phone] [place] [address] documented as of this encounter Advance Directives Name Relationship Healthcare Agent Communication Relationship Tony Lewis Father First [facility] Care [phone] Agent (Mobile) Philly Joshua Grandparent [employer] [facility] Care Agent Carlos Lewis Sibling [employer] [facility] Care Agent (Mobile)
[2020-11-28] MEDS ORDERED: NA CHLORIDE 0.9% 500 ML ONE (13:09)
[2020-11-28] MEDS ORDERED: FUROSEMIDE 40 MG/4 ML VIAL ONE ×2 (15:28→17:43)
[2020-11-28] MEDS ORDERED: NA CHLORIDE 0.9% 250 ML ONE (15:46)
[2020-11-28 19:05] LABS: Hematocrit 26.6 % (36.0-45.0)
[2020-11-28 19:12] VITALS: BMI 20.1
[2020-11-28 19:52] VITALS: O2SAT 100
[2020-11-28 19:55] VITALS: BP 134/77; TEMP 99.1
== END 2020-11-28 18:50 | disposition home health service (06) ==
LOC: DS 11:29
PROVIDERS: ATTEND Internal Medicine
PROC: 30233N1 Transfusion of Nonautologous Red Blood Cells into Peripheral Vein, Percutaneous Approach (ICD-10-PCS; principal; 2020-11-28)
DX: N18.9 Chronic kidney disease, unspecified (principal); D63.1 Anemia in chronic kidney disease
CPT/HCPCS: 36415; 86900; 86850; 86901; 85018; 85014; 36430 ×2; J1940 ×2; P9016 ×2; J7050 ×2; P9021

== ENCOUNTER 2021-06-25 07:34 | Day surgery (SDC) | payer OTHER ==
[2021-06-25 08:53] VITALS: BMI 20.1
[2021-06-25] MEDS ORDERED: NA CHLORIDE 0.9% 250 ML ONE ×2 (08:57→12:47)
[2021-06-25 13:15] VITALS: O2SAT 100
[2021-06-25 15:04] VITALS: BP 109/65
[2021-06-25 16:46] VITALS: TEMP 98.1
== END 2021-06-25 16:07 | disposition home or self-care (01) ==
LOC: DS 07:34
PROVIDERS: ATTEND Internal Medicine
DX: N18.9 Chronic kidney disease, unspecified (principal); D63.1 Anemia in chronic kidney disease
CPT/HCPCS: 36415 ×2; 86900; 86850; 86901; 85018; 85014; 36430; P9016 ×2; J7050 ×2

== ENCOUNTER 2021-11-02 08:35 | Day surgery (SDC) | payer OTHER ==
[2021-11-01 13:50] LABS: Hematocrit 23.7 % (36.0-45.0)
[2021-11-02] MEDS ORDERED: NA CHLORIDE 0.9% 250 ML ONE (09:16)
[2021-11-02 09:53] VITALS: O2SAT 100; BMI 20.1
[2021-11-02 13:04] VITALS: BP 119/81; TEMP 98.6
[2021-11-02 13:09] LABS: Hematocrit 23.9 % (36.0-45.0)
== END 2021-11-02 13:03 | disposition home or self-care (01) ==
LOC: DS 08:35
PROVIDERS: ATTEND Internal Medicine
DX: N18.9 Chronic kidney disease, unspecified (principal); D63.1 Anemia in chronic kidney disease
CPT/HCPCS: 36415; 86900; 86850; 86901; 85018 ×2; 85014 ×2; 36430; P9016; J7050

== ENCOUNTER 2021-12-08 21:40 | Inpatient (IN) | payer OTHER ==
--- OUTSIDE RECORDS SUMMARY | 2021-12-08 21:45 | XMS REPORT | Continuity of Care Document ---
:1995 Author Organization [facility] t Address [address] [place] [address] Care Team Providers Name Role Phone Javed HAMMONDS Primary Care Physician HEMAL Attending Clinician Unavailable Eileen ENNIS Attending Clinician Unavailable 3, Adult Infusion Nurse Attending Clinician Unavailable Hemal STRE[address] LIGHT REPAIRER HELPER Attending Clinician Javed HAMMONDS Attending Clinician JAVED Attending Clinician Unavailable MARV Attending Clinician Unavailable Nurse, Hoda Attending Clinician Unavailable Luis Angel Givens MD Attending Clinician Doctor Unassigned, Name Attending Clinician Unavailable ERICKSON_R Admitting Clinician Unavailable Payers Payer Name Policy Type Policy Number Effective Date Expiration Date Aura ignacia [facility] DUAL [id number] 2020 COMP HMO D SNP 00:00:00 [facility] [place] STAR PLUS [id number] 2021 00:00:00 [place] [id number] 2016 [employer] 00:00:00 [employer] - [id number] 2020 [facility] 00:00:00 (MEDICARE REPLACEMENT/ADVANTA GE - H[place]) [place] [id number] [place] [facility] [id number] 2018 [employer] [place] 00:00:00 (MEDICAID HMO) Advance Directives Directive Decision Effective Termination Comments Source Date Date Healthcare Agents on N/A Univ ersity FileNameRelationshipHealthcare of [place] Agent Medical RelationshipCommunicationGerald Branch ThompsonFatherFirst Alternate Health Care [phone] (Mobile) Philly OrdonezdparentSecond [facility]ate Health Care [phone] (Home)Carlos CabreraSiblingSecond Alternate Health Care [phone] (Mobile) Problems Condition Condition Condition Status Onset Resolution Last Treating Co mments Source Name Details Category Date Date Treatment Clinician Date Decreased Decreased Disease Active 2020- Uni vers range of range of 4-08 [place] elbow elbow Branch Decreased Decreased Disease Active Uni vers activities activities 4-08 it y of of daily of daily 00:00: [place] living living 00 Medical (ADL) (ADL) Branch Chronic Chronic Disease Active 2020-0 Univers combined combined 1-11 ity of systolic systolic 00:00: [place] and and 00 Medical diastolic diastolic Bran ch heart heart failure failure Shortness Shortness Disease Active 2020- Uni vers of breath of breath 1-11 ity of 00:00: [place] 00 Medical Branch Hypercoagu Hypercoagu Disease Active 2019-0 U nivers lable lable 9-08 ity of state state 00:00: [place] 00 Medical Branch Anticoagul Anticoagul Disease Active 2019-0 U nivers ation ation 9-03 [place] of management [place] encounter encounter 00 Medi lai Branch Other Other Disease Active 2019-0 Univers acute acute 8-30 [place] of pulmonary pulmonary 00:[place] embol[place] embolism 00 Medica l without without Branch acute cor acute cor pulmonale pulmonale Right Right Disease Active 2019-0 Univers shoulder shoulder 8-23 ity of tendonitis tendonitis [place] Pulmonary Pulmonary Disease Active 2019-0 Uni vers embolism embolism 8-11 ity of 00:00: [place] 00 Medical Branch Pneumonia Pneumonia Disease Active 2019-0 Uni vers 8-11 ity of 00:00: [place] 00 Medical Branch ESRD on ESRD on Disease Active Univers peritoneal peritoneal 7-06 it y of dialysis dialysis 00:00: [place] 00 Medical Branch Hyperkalem Hyperkalem Disease Active U nivers ia ia 5-03 ity of 00:00: [place] 00 Medical Branch 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 00 Medical antibody antibody Branch test test 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 3-15 ity of 00:00: [place] 00 Medical Branch 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 00:[place] justo justo 00 Medical Branch Chronic Chronic Disease Active 2016-10 Univers anemia anemia 1-10 ity of 00:00: [place] 00 Medical Branch Acute on Acute on Disease Active 2016-10 Unive rs chronic chronic 0-24 ity of systolic systolic 00:00: [place] heart heart 00 Medical failure failure Branch [facility] 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 NO KNOWN Allergy Active [facility] ALLERGIE S Social History Social Habit Start Date Stop Date Quantity Comments Source Exposure to Not sure [facility] SARS-CoV-2 (event) Medica l Branch Alcohol intake 2021-12-05 2021-12-05 0 /d [facility] 00:00:00 00:00:00 Medical Branch Education 2019-05-01 2019-05-[address] [facility] 00:00:00 00:00:00 Medical Branch History [facility] 2019-05-01 2019-05-01 3 [place] [facility] Financial 00:00:00 00:00:00 Medical Branch History [facility] Food 2019-05-01 2019-05-01 1 Univers [facility] [place] Worry 00:00:00 00:00:00 Medical Branch History [facility] Food 2019-05-01 2019-05-01 1 Univers [facility] [place] Scarcity 00:00:00 00:00:00 Medical Branch History [facility] 2019-05-01 2019-05-01 2 [place] [facility] Transport Med 00:00:00 00:00:00 Medical Bra [facility] History [facility] 2019-05-01 2019-05-01 2 [place] [facility] Transport Non-Med 00:00:00 00:00:00 Medical Branch Tobacco use and 2015-07-27 2015-07-27 Never used [facility] exposure 00:00:00 00:00:00 Medical Branch Sex [birth year] [facility] 00:00:00 00:00:00 Medical Branch Smoking Status Start Date Stop Date Source Never smoker [facility] Medications Ordered Filled Start Stop Current Ordering Indication Dosage Frequency Signature Comments Components Source Medication Medication Date Date Medication? Clinician (SIG) Name Name denosumab 2021- No [id number] 60mg 60 mg, U nivers (PROLIA) 12-05- Subcutaneo ity of injection 19:30: 19:37 [place] Syrg 60 mg 00 :00 1 dose, On Med ical 12/05/21 Branch at 1330, Routine
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
Poly alcaraz for non-formul michael use: PATIENT CURRENTLY TAKING NONFORMULA RY PRODUCT omeprazole Yes 1{capsu Take 1 Un jaziel 20 mg 2-09 le} capsule by ity of capsule 13:28: mouth. [address] Branch sevelamer Yes 1{tbl} Take 1 Univ ers 800 mg 2-09 tablet by ity of tablet 13:28: mouth 3 [place] [address] (three) Medical times Branch daily. potassium Yes 10meq Take 10 Univ ers chloride 10 1-29 mEq by ity of mEq CR 00:00: mouth [place] tablet 00 daily. Medical Branch aspirin 81 Yes 81mg Take 81 mg U nivers mg EC 1-27 by mouth ity of tablet 10:38: daily. [place] [address] Medical Branch Cholecalcif Yes Take by Un jaziel [place], 1- mouth. ity of Vitamin D3, 10:38: [place] (VITAMIN 58 Medical D3) 5,000 Branch unit tablet aspirin 81 2022-0 Yes 81mg Take 81 mg U nivers mg EC 1-27 by mouth ity of tablet 10:38: daily. [place] [address] Medical Branch Cholecalcif 2021-0 Yes Take by Un jaziel [place], 1-27 mouth. ity of Vitamin D3, 10:38: [place] (VITAMIN 58 Medical D3) 5,000 Branch unit tablet aspirin 81 2022-0 Yes 81mg Take 81 mg U nivers mg EC 1-27 by mouth ity of tablet 10:38: daily. [place] [address] Medical Branch Cholecalcif 2022-0 Yes Take by Un jaziel [place], 1- mouth. ity of Vitamin D3, 10:38: [place] (VITAMIN 58 Medical D3) 5,000 Branch unit tablet aspirin 81 2021-0 Yes 81mg Take 81 mg U nivers mg EC - by mouth ity of tablet 10:38: daily. [place] [address] Medical Branch Cholecalcif 2021-0 Yes Take by Un jaziel [place], 1- mouth. ity of Vitamin D3, 10:38: [place] (VITAMIN 58 Medical D3) 5,000 Branch unit tablet aspirin 81 2021-0 Yes 81mg Take 81 mg U nivers mg EC - by mouth ity of tablet 10:38: daily. [place] [address] Medical Branch Cholecalcif 2021-0 Yes Take by Un jaziel [place], 1- mouth. ity of Vitamin D3, 10:38: [place] (VITAMIN 58 Medical D3) 5,000 Branch unit tablet nystatin 2022-0 Yes [id number] [place] and Univers 100,000 1-27 spit out 5 ity of unit/mL 00:00: mL 4 [place] suspension 00 (four) Medical times Branch daily. nystatin 2022-0 Yes [id number] Sw[place] and Univers 100,000 1-27 spit out 5 ity of unit/mL 00:00: mL 4 [place] suspension 00 (four) Medical times Branch daily. nystatin 2022-0 Yes [id number] Swish and Univers 100,000 1-27 spit out 5 ity of unit/mL 00:00: mL 4 [place] suspension 00 (four) Medical times Branch daily. nystatin 2022-0 Yes [id number] Swish and Univers 100,000 1- spit out 5 ity of unit/mL 00:00: mL 4 [place] suspension 00 (four) Medical times [place] daily. nystatin Yes [id number] Swish and Univers 100,000 1-27 spit out 5 ity of unit/mL 00:00: mL 4 [place] suspension 00 (four) Medical times [place] daily. lanthanum Yes CHEW AND Univ ers 500 mg 1-25 SWALLOW 1 ity of chewable 00:00: TABLET BY [address] BEFORE [place] MEALS FUROSEMIDE 0 Yes [id number] TAKE 1 AND Univers 40 mg 1-16 1/2 ity of tablet 00:00: TABLETS BY [address] EVERY Branch MORNING AND EVERY EVENING FUROSEMIDE 0 Yes [id number] TAKE 1 AND Univers 40 mg 1-16 1/2 ity of tablet 00:00: TABLETS BY [address] EVERY Branch MORNING AND EVERY EVENING FUROSEMIDE 0 Yes [id number] TAKE 1 AND Univers 40 mg 1-16 1/2 ity of tablet 00:00: TABLETS BY [address] EVERY Branch MORNING AND EVERY EVENING FUROSEMIDE 0 Yes [id number] TAKE 1 AND Univers 40 mg 1-16 1/2 ity of tablet 00:00: TABLETS BY [address] EVERY Branch MORNING AND EVERY EVENING FUROSEMIDE 0 Yes [id number] TAKE 1 AND Univers 40 mg 1-16 1/2 ity of tablet 00:00: TABLETS BY [address] EVERY Branch MORNING AND EVERY EVENING NIFEdipine 2020-10 Yes 30mg Take 1 Unive rs ER 30 mg 2-29 tablet by ity of tablet 00:00: mouth [place] 00 daily. Medical Branch NIFEdipine 2020-10 Yes 30mg Take 1 Unive rs ER 30 mg 2-29 tablet by ity of tablet 00:00: mouth [place] 00 daily. Medical Branch NIFEdipine 2020-10 Yes 30mg Take 1 Unive rs ER 30 mg 2-29 tablet by ity of tablet 00:00: mouth [place] 00 daily. Medical Branch NIFEdipine 2020-10 Yes 30mg Take 1 Unive rs ER 30 mg 2-29 tablet by ity of tablet 00:00: mouth [place] 00 daily. [facility] Branch NIFEdipine 2020-10 Yes 30mg Take 1 Unive rs ER 30 mg 2-29 tablet by ity of tablet 00:00: mouth [place] 00 daily. Medical Branch nystatin 2020-10- No 5mL Sw[place] and Uni vers 100,000 12-24 spit out 5 ity o f unit/mL 00:00: 00:00 mL 4 [place] suspension 00 :00 (four) Medical times [place] daily. nystatin 2020-10- No 5mL Sw[place] and Uni vers 100,000 12-24 spit out 5 ity o f unit/mL 00:00: 00:00 mL 4 [place] suspension 00 :00 (four) [facility] daily. hydrOXYchlo 2020-10 Yes [id number] 200mg Take 1 Univers roQUINE 200 1-17 tablet by ity of mg tablet 00:00: mouth [place] 00 daily. [facility] call clinic to schedule an appt soon. hydrOXYchlo 2020-10 Yes [id number] 200mg Take 1 Univers roQUINE 200 1-17 tablet by ity of mg tablet 00:00: mouth [place] 00 daily. [facility] call clinic to schedule an appt soon. hydrOXYchlo 2020-10 Yes [id number] 200mg Take 1 Univers roQUINE 200 1-17 tablet by ity of mg tablet 00:00: mouth [place] 00 daily. [facility] call clinic to schedule an appt soon. hydrOXYchlo 2020-10 Yes [id number] 200mg Take 1 Univers roQUINE 200 1-17 tablet by ity of mg tablet 00:00: mouth [place] 00 daily. [facility] call clinic to schedule an appt soon. hydrOXYchlo 2020-10 Yes [id number] 200mg Take 1 Univers roQUINE 200 1-17 tablet by ity of mg tablet 00:00: mouth [place] 00 daily. [facility] call clinic to schedule an appt soon. azaTHIOprin Yes [id number] 50mg Take 1 Univers e 50 mg 9-20 tablet by ity of tablet 00:00: mouth [place] 00 daily. [facility] Branch MIRTAZAPINE Yes [id number] 15mg TAKE 1 Univers 15 mg 9-20 TABLET BY ity of tablet 00:00: MOUTH AT [place] 00 BEDTIME [facility] azaTHIOprin 2020- Yes [id number] 50mg Take 1 Univers e 50 mg 9-20 tablet by ity of tablet 00:00: mouth [place] 00 daily. [facility] Branch MIRTAZAPINE Yes [id number] 15mg TAKE 1 Univers 15 mg 9-20 TABLET BY ity of tablet 00:00: MOUTH AT [place] BEDTIME Medical Branch azaTHIOprin 2020-0 Yes [id number] 50mg Take 1 Univers e 50 mg 9-20 tablet by ity of tablet 00:00: mouth daily. Medical Branch MIRTAZAPINE 2020-0 Yes [id number] 15mg TAKE 1 Univers 15 mg 9-20 TABLET BY ity of tablet 00:00: MOUTH AT [place] BEDTIME Medical Branch azaTHIOprin 2020-0 Yes [id number] 50mg Take 1 Univers e 50 mg 9-20 tablet by ity of tablet 00:00: mouth daily. Medical Branch MIRTAZAPINE Yes [id number] 15mg TAKE 1 Univers 15 mg 9-20 TABLET BY ity of tablet 00:00: MOUTH AT [place] BEDTIME Medical Branch azaTHIOprin 0 Yes [id number] 50mg Take 1 Univers e 50 mg 9-20 tablet by ity of tablet 00:00: mouth daily. Medical Branch MIRTAZAPINE Yes [id number] 15mg TAKE 1 Univers 15 mg 9-20 TABLET BY ity of tablet 00:00: MOUTH AT [place] [facility] Medical Branch ramipriL 10 Yes 10mg Take 10 mg Univers mg capsule 9-15 by mouth ity o f 00:00: daily. [place] Medical Branch ramipriL 10 Yes 10mg Take 10 mg Univers mg capsule 9-15 by mouth ity o f 00:00: daily. [place] Medical Branch ramipriL 10 Yes 10mg Take 10 mg Univers mg capsule 9-15 by mouth ity o f 00:00: daily. [place] Medical Branch ramipriL 10 0 Yes 10mg Take 10 mg Univers mg capsule 9-15 by mouth ity o f 00:00: daily. [place] Medical Branch ramipriL 10 0 Yes 10mg Take 10 mg Univers mg capsule 9-15 by mouth ity o f 00:00: daily. [place] Medical Branch ferrous 2020-0 Yes [id number] 325mg Take 1 Un jaziel sulfate 7-22 tablet by ity of (IRON, 00:00: mouth 3 [place] FERROUS 00 (three) Medical SULFATE,) [facility] Branch 325 mg (65 daily with mg iron) meals. tablet ferrous Yes [id number] 325mg Take 1 Un jaziel sulfate 7-22 tablet by ity of (IRON, 00:00: mouth 3 [place] FERROUS 00 (three) Medical SULFATE,) times Branch 325 mg (65 daily with mg iron) meals. tablet ferrous Yes [id number] 325mg Take 1 Un jaziel sulfate 7-22 tablet by ity of (IRON, 00:00: mouth 3 [place] FERROUS 00 (three) Medical SULFATE,) times Branch 325 mg (65 daily with mg iron) meals. tablet ferrous Yes [id number] 325mg Take 1 Un jaziel sulfate 7-22 tablet by ity of (IRON, 00:00: mouth 3 [place] FERROUS 00 (three) Medical SULFATE,) times Branch 325 mg (65 daily with mg iron) meals. tablet ferrous Yes [id number] 325mg Take 1 Un jaziel sulfate 7-22 tablet by ity of (IRON, 00:00: mouth 3 [place] FERROUS 00 (three) Medical SULFATE,) times Branch 325 mg (65 daily with mg iron) meals. tablet predniSONE Yes [id number] 2mg Take 2 Univers 1 mg tablet 3-12 tablets by it y of 00:00: mouth [place] 00 daily. Medical Branch predniSONE Yes [id number] 2mg Take 2 Univers 1 mg tablet 3-12 tablets by it y of 00:00: mouth [place] 00 daily. Medical Branch predniSONE Yes [id number] 2mg Take 2 Univers 1 mg tablet 3-12 tablets by it y of 00:00: mouth [place] 00 daily. Medical Branch predniSONE Yes [id number] 2mg Take 2 Univers 1 mg tablet 3-12 tablets by it y of 00:00: mouth [place] 00 daily. Medical Branch predniSONE Yes [id number] 2mg Take 2 Univers 1 mg tablet 3-12 tablets by it y of 00:00: mouth [place] 00 daily. Medical Branch loteprednol Yes CLAUDIAKE Unive rs 0.5 % 3 LIQUID AND ity of ophthalmic 00:00: INSTILL 1 [place] suspension 00 DROP IN Medica l drops BOTH EYES Branch TWICE DAILY zolpidem 5 0 Yes Univers mg tablet 3-03 ity of 00:00: [place] 00 Medical Branch loteprednol 0 Yes SHAKE Unive rs 0.5 % 3-03 LIQUID AND ity of ophthalmic 00:00: [place]ILL 1 [place] suspension 00 DROP IN Medica l drops BOTH EYES Branch TWICE DAILY zolpidem 5 2020-0 Yes Univers mg tablet 3-03 ity of 00:00: Medical Branch loteprednol 0 Yes SHAKE Unive rs 0.5 % 3-03 LIQUID AND ity of ophthalmic 00:00: INSTILL 1 [place] suspension 00 DROP IN Medica l drops BOTH EYES Branch TWICE DAILY zolpidem 5 2020-0 Yes Univers mg tablet 3-03 ity of 00:00: Medical Branch loteprednol Yes SHAKE Unive rs 0.5 % 3-03 LIQUID AND ity of ophthalmic 00:00: INSTILL 1 [place] suspension 00 DROP IN Medica l drops BOTH EYES Branch TWICE DAILY zolpidem 5 2020-0 Yes Univers mg tablet 3-03 ity of 00:00: Medical Branch loteprednol Yes SHAKE Unive rs 0.5 % 3-03 LIQUID AND ity of ophthalmic 00:00: INSTILL 1 [place] suspension 00 DROP IN Medica l drops BOTH EYES Branch TWICE DAILY zolpidem 5 2020-0 Yes Univers mg tablet 3-03 ity of 00:00: Medical Branch dronabinoL Yes [id number] 2.5mg Take 1 Univers (MARINOL) 2-04 capsule by ity of 2.5 mg 00:00: mouth 2 [place] capsule 00 (two) Medical times Branch daily. dronabinoL Yes [id number] 2.5mg Take 1 Univers (MARINOL) 2-04 capsule by ity of 2.5 mg 00:00: mouth 2 [place] capsule 00 (two) Medical times Branch daily. dronabinoL Yes [id number] 2.5mg Take 1 Univers (MARINOL) 2-04 capsule by ity of 2.5 mg 00:00: mouth 2 [place] capsule 00 (two) Medical times Branch daily. dronabinoL Yes [id number] 2.5mg Take 1 Univers (MARINOL) 2-04 capsule by ity of 2.5 mg 00:00: mouth 2 [place] capsule 00 (two) Medical times Branch daily. dronabinoL 2020-0 Yes [id number] 2.5mg Take 1 Univers (MARINOL) 2-04 capsule by ity of 2.5 mg 00:00: mouth 2 [place] capsule 00 (two) Medical times Branch daily. VELPHORO 2020-0 Yes Univers 500 mg Chew 1-22 ity of 00:00: Medical Branch VELPHORO 2020-0 Yes Univers 500 mg Chew 1-22 ity of 00:00: Medical Branch VELPHORO 2020-0 Yes Univers 500 mg Chew 1-22 ity of 00:00: Medical Branch VELPHORO 2020-0 Yes Univers 500 mg Chew 1-22 ity of 00:00: Medical Branch VELPHORO 2020-0 Yes Univers 500 mg Chew -22 ity of 00:00: Medical Branch carvediloL 2020- Yes 25mg Take 1 Unive rs 25 mg 1-13 tablet by ity of tablet 00:00: mouth 2 (two) Medical times Branch daily with meals. carvediloL 2020- Yes 25mg Take 1 Unive rs 25 mg 1-13 tablet by ity of tablet 00:00: mouth 2 (two) Medical times Branch daily with meals. carvediloL 2020- Yes 25mg Take 1 Unive rs 25 mg 1-13 tablet by ity of tablet 00:00: mouth 2 (two) Medical times Branch daily with meals. carvediloL 2020- Yes 25mg Take 1 Unive rs 25 mg 1-13 tablet by ity of tablet 00:00: mouth 2 (two) Medical times Branch daily with meals. carvediloL 2020-1 Yes 25mg Take 1 Unive rs 25 mg 1-13 tablet by ity of tablet 00:00: mouth 2 (two) Medical times Branch daily with meals. omeprazole 2019-0 Yes [id number] 20mg Take 1 Univers (PRILOSEC 2-06 tablet by ity o f OTC) 20 mg 00:00: mouth [place] tablet 00 daily. Medical Branch omeprazole 2019-0 Yes [id number] 20mg Take 1 Univers (PRILOSEC 2-06 tablet by ity o f OTC) 20 mg 00:00: mouth [place] tablet 00 daily. Medical Branch omeprazole 2020-0 Yes [id number] 20mg Take 1 Univers (PRILOSEC 2-06 tablet by ity o f OTC) 20 mg 00:00: mouth [place] tablet 00 daily. [facility] Branch omeprazole 2020-0 Yes [id number] 20mg Take 1 Univers (PRILOSEC 2-06 tablet by ity o f OTC) 20 mg 00:00: mouth [place] tablet 00 daily. [facility] Branch omeprazole 2020-0 Yes [id number] 20mg Take 1 Univers (PRILOSEC 2-06 tablet by ity o f OTC) 20 mg 00:00: mouth [place] tablet 00 daily. [facility] Immunizations Ordered Immunization Filled Immunization Date Status Commen ts Source Name Name Influenza Virus 2020-09-05 Completed Universit y of Vaccine 00:00:00 [facility] Influenza Virus 2020-09-05 Completed Universit y of Vaccine 00:00:00 [facility] Influenza Virus 2020-09-05 Completed Universit y of Vaccine 00:00:00 [facility] Influenza Virus 2020-09-05 Completed Universit y of Vaccine 00:00:00 [facility] Influenza Virus 2020-09-05 Completed Universit y of Vaccine 00:00:00 [facility] Pneumococcal 13 2019-05-11 Completed Universit y of Conjugate, PCV13 00:00:00 [facility] dical (Prevnar 13) Branch Pneumococcal 13 2019-05-11 Completed Universit y of Conjugate, PCV13 00:00:00 [facility] dical (Prevnar 13) Branch Pneumococcal 13 2019-05-11 Completed Universit y of Conjugate, PCV13 00:00:00 [facility] dical (Prevnar 13) Branch Pneumococcal 13 2019-05-11 Completed Universit y of Conjugate, PCV13 00:00:00 [facility] dical (Prevnar 13) Branch Pneumococcal 13 2019-05-11 Completed Universit y of Conjugate, PCV13 00:00:00 [facility] dical (Prevnar 13) Branch Meningococcal 2018-03-31 Completed University of Polysaccharide 00:00:00 [place] Medi lai (groups A, C, Y and Branc h W-135) conjugate vaccine (MCV4P) Meningococcal 2018-03-31 Completed University of Polysaccharide 00:00:00 [place] Medi lai (groups A, C, Y and Branc h W-135) conjugate vaccine (MCV4P) Meningococcal 2018-03-31 Completed University of Polysaccharide 00:00:00 [place] Medi lai (groups A, C, Y and Branc h W-135) conjugate vaccine (MCV4P) Meningococcal 2018-03-31 Completed University of Polysaccharide 00:00:00 [place] Medi lai (groups A, C, Y and Branc h W-135) conjugate vaccine (MCV4P) Meningococcal 2018-03-31 Completed University of Polysaccharide 00:00:00 [place] Medi lai (groups A, C, Y and Branc h W-135) conjugate vaccine (MCV4P) Hep B, Adol or Pedi 2017-07-21 Completed Unive rsity of Dosage 00:00:00 [facility] Hep B, Adol or Pedi 2017-07-21 Completed Unive rsity of Dosage 00:00:00 [facility] Hep B, Adol or Pedi 2017-07-21 Completed Unive rsity of Dosage 00:00:00 [facility] Hep B, Adol or Pedi 2017-07-21 Completed Unive rsity of Dosage 00:00:00 [facility] Hep B, Adol or Pedi 2017-07-21 Completed Unive rsity of Dosage 00:00:00 [facility] Influenza Virus 2017-07-16 Completed Universit y of Vaccine 00:00:00 [facility] Influenza Virus 2017-07-16 Completed Universit y of Vaccine 00:00:00 [facility] Influenza Virus 2017-07-16 Completed Universit y of Vaccine 00:00:00 [facility] Influenza Virus 2017-07-16 Completed Universit y of Vaccine 00:00:00 [facility] Influenza Virus 2017-07-16 Completed Universit y of Vaccine 00:00:00 [facility] Hep B, Adol or Pedi 2017-03-26 Completed Unive rsity of Dosage 00:00:00 [facility] Hep B, Adol or Pedi 2017-03-26 Completed Unive rsity of Dosage 00:00:00 [facility] Hep B, Adol or Pedi 2017-03-26 Completed Unive rsity of Dosage 00:00:00 [facility] Hep B, Adol or Pedi 2017-03-26 Completed Unive rsity of Dosage 00:00:00 [facility] Hep B, Adol or Pedi 2017-03-26 Completed Unive rsity of Dosage 00:00:00 [facility] PPD (TB) 2016-11-29 Completed University of 00:00:00 [facility] PPD (TB) 2016-11-29 Completed University of 00:00:00 [facility] PPD (TB) 2016-11-29 Completed University of 00:00:00 [facility] PPD (TB) 2016-11-29 Completed University of 00:00:00 [facility] PPD (TB) 2016-11-29 Completed University of 00:00:00 [facility] Influenza Virus 2016-09-19 Completed Universit y of Vaccine Quad IM 3+ 00:00:00 [facility] Influenza Virus 2016-09-19 Completed Universit y of Vaccine [facility] Influenza Virus 2016-09-19 Completed [facility]it [facility] Vaccine [facility]+ [facility] Influenza Virus 2016-09-19 Completed [facility]it [facility] Vaccine [facility] IM 3+ [facility] Influenza Virus 2016-09-19 Completed [facility]it [facility] Vaccine [facility] 3+ [facility] Influenza Virus 2016 Completed Universit y of Vaccine 00:00:00 [facility] Pneumococcal 2016 Completed University o f Polysaccharide, 00:00:00 [facility] ical PPSV23 (PNEUMOVAX) [place] Influenza Virus 2016 Completed Universit y of Vaccine 00:00:00 [facility] Pneumococcal 2016 Completed University o f Polysaccharide, 00:00:00 [place] [facility] PPSV23 (PNEUMOVAX) [facility] Influenza Virus 2016 Completed Universit y of Vaccine 00:00:00 [facility] Pneumococcal 2016 Completed University o f Polysaccharide, 00:00:00 [place] [facility] PPSV23 (PNEUMOVAX) [facility] Influenza Virus 2016 Completed Universit y of Vaccine 00:00:00 [facility] Pneumococcal 2016 Completed University o f Polysaccharide, 00:00:00 [facility] ical PPSV23 (PNEUMOVAX) [place] Influenza Virus 2016 Completed Universit y of Vaccine 00:00:00 [facility] Pneumococcal 2016 Completed University o f Polysaccharide, 00:00:00 [place] [facility] PPSV23 (PNEUMOVAX) [facility] Influenza Virus 2015-08-28 Completed [facility]it [facility] Vaccine [facility] Influenza Virus 2015-08-28 Completed [facility] Vaccine [facility] 3+ [facility] Influenza Virus 2015-08-28 Completed [facility]it [facility] Vaccine [facility] 3+ [facility] Influenza Virus 2015-08-28 Completed [facility]it [facility] Vaccine [facility] 3+ 00:00:00 [facility] Influenza Virus 2015-08-28 Completed Universit y of Vaccine [facility] IM 3+ 00:00:00 [facility] Pneumococcal 2015-06-08 Completed University o f Polysaccharide, 00:00:00 [place] [facility] PPSV23 (PNEUMOVAX) [facility] Pneumococcal 2015-06-08 Completed University o f Polysaccharide, 00:00:00 [place] [facility] PPSV23 (PNEUMOVAX) [facility] Pneumococcal 2015-06-08 Completed University o f Polysaccharide, 00:00:00 [place] [facility] PPSV23 (PNEUMOVAX) [facility] Pneumococcal 2015-06-08 Completed University o f Polysaccharide, 00:00:00 [place] [facility] PPSV23 (PNEUMOVAX) [facility] Pneumococcal 2015-06-08 Completed University o f Polysaccharide, 00:00:00 [place] [facility] PPSV23 (PNEUMOVAX) [facility] Influenza Virus 2014-08-04 Completed Universit y of Vaccine (3+ yrs) 00:00:[address] [facility] Influenza Virus 2014-08-04 Completed Universit y of Vaccine (3+ yrs) 00:00:[address] [facility] Influenza Virus 2014-08-04 Completed Universit y of Vaccine (3+ yrs) 00:00:[address] [facility] Influenza Virus 2014-08-04 Completed Universit y of Vaccine (3+ yrs) 00:00:[address] [facility] Influenza Virus 2014-08-04 Completed Universit y of Vaccine (3+ yrs) 00:00:[address] [facility] Influenza Virus 2013-08-06 Completed Universit y of Vaccine (3+ yrs) 00:00:[address] [facility] Influenza Virus 2013-08-06 Completed Universit y of Vaccine (3+ yrs) 00:00:[address] [facility] Influenza Virus 2013-08-06 Completed Universit y of Vaccine (3+ yrs) 00:00:[address] [facility] Influenza Virus 2013-08-06 Completed Universit y of Vaccine (3+ yrs) 00:00:[address] [facility] Influenza Virus 2013-08-06 Completed Universit y of Vaccine (3+ yrs) 00:00:[address] [facility] Influenza Virus 2012-09-02 Completed Universit y of Vaccine (3+ yrs) 00:00:[address] [facility] Influenza Virus 2012-09-02 Completed Universit y of Vaccine (3+ yrs) 00:00:[address] [facility] Influenza Virus 2012-09-02 Completed Universit y of Vaccine (3+ yrs) 00:00:[address] [facility] Influenza Virus 2012-09-02 Completed Universit y of Vaccine (3+ yrs) 00:00:[address] [facility] Influenza Virus 2012-09-02 Completed Universit y of Vaccine (3+ yrs) 00:00:[address] [facility] HPV 2012-02-12 Completed University of 00:00:00 [facility] HPV 2012-02-12 Completed University of 00:00:00 [facility] HPV 2012-02-12 Completed University of 00:00:00 [facility] HPV 2012-02-12 Completed University of 00:00:00 [facility] HPV 2012-02-12 Completed University of 00:00:00 [facility] Influenza Virus 2011-08-13 Completed Universit y of Vaccine (3+ yrs) 00:00:[address] [facility] Influenza Virus 2011-08-13 Completed Universit y of Vaccine (3+ yrs) 00:00:[address] [facility] Influenza Virus 2011-08-13 Completed Universit y of Vaccine (3+ yrs) 00:00:[address] [facility] Influenza Virus 2011-08-13 Completed Universit y of Vaccine (3+ yrs) 00:00:[address] [facility] Influenza Virus 2011-08-13 Completed Universit y of Vaccine (3+ yrs) 00:00:[address] [facility] Vital Signs Vital Name Observation Time Observation Value Comments Source Systolic blood 2021-12-05 19:15:00 115 mm[Hg] Univer sity of pressure [facility] Diastolic blood 2021-12-05 19:15:00 82 mm[Hg] Unive rsity of pressure [facility] Heart rate 2021-12-05 19:15:00 82 /min [facility]i ty [facility] Body temperature 2021-12-05 19:15:00 36.67 [facility] ersity of [facility] Respiratory rate 2021-12-05 19:15:00 18 /min Univ ersity of [facility] Body height 2021-12-05 19:15:00 157.5 cm [facility] Body weight 2021-12-05 19:15:00 52.209 kg [facility] BMI 2021-12-05 19:15:00 21.05 kg/m2 [facility] Oxygen saturation in 2021-12-05 19:15:00 100 /min University of Arterial blood by [facility] Pulse oximetry Branch Systolic blood 2021-11-22 16:39:00 135 mm[Hg] Univer sity of [facility] [place] Diastolic blood 2021-11-22 16:39:00 84 mm[Hg] Unive rsity of pressure [facility] Heart rate 2021-11-22 16:39:00 79 /min [facility]i ty [facility] Body temperature 2021-11-22 16:39:00 36.44 [facility] ersity of [facility] Respiratory rate 2021-11-22 16:39:00 15 /min [facility] ersity of [facility] Body height 2021-11-22 16:39:00 157.5 cm [facility]i ty [facility] Body weight 2021-11-22 16:39:00 49.941 kg [facility] BMI 2021-11-22 16:39:00 20.14 kg/m2 [facility] Oxygen saturation in 2021-11-22 16:39:00 100 /min University of Arterial blood by [facility] Pulse oximetry Branch Procedures This patient has no known procedures. Encounters Start End Encounter Admission Attending Care Care Encounter Source Date/Time Date/Time Type Type Clinicians Facility Department ID 2022-08-05 2022-08-[address] [facility] [id number] Univers 11:00:00 11:00:[id number] [facility] 2022-06-04 2022-06-[address] [facility] [id number] Univers 13:30:00 13:30:00 [id number] ity [facility] 2021-12-11 2021-12-[address] [facility] [id number] Univers 09:30:00 09:30:00 STEVE ity [facility] 2021-12-05 2021-12-05 Nurse 3, Korin Adult Infusion Nurse [facility] [id number] Univers 13:30:00 14:00:00 Visit Jenifer Sanz SPECIALTY [id number] ity of CARE [id number] [facility] CENTER AT [phone] [place] carlos VU 053 [facility] 2021-12-05 2021-12-[address] [facility] [id number] Univers 13:30:00 13:30:00 anni ELIZONDO [facility] 2021-12-04 2021-12-04 Patient Eliezer [facility] [id number] Univers 00:00:00 00:00:00 Secure [facility] [id number] ity of [facility] [id number] [facility] [phone] [facility] PRIMARY & 198 Branch SPECIALTY CARE 2021-11-28 2021-11-28 Case Eliezer [facility] [id number] Univers 00:00:00 00:00:00 Management charlene, SPECIALTY [id number] ity of [facility] [id number] [facility] CENTER AT [phone] [place] carlos VU 198 [facility] 2021-11-22 2021-11-22 Office Javed [facility] [id number] Univers 10:30:00 11:00:00 Visit Kamlesh BARRIENTOS [id number] it y of MEDICINE [id number] [facility] - [phone] [address] 2021-11-22 2021-11-[address] [facility] [id number] Univers 10:30:00 10:30:00 KAMLESH anamariabob [facility] 2021-10-24 2021-10-24 Outpatient ERICKSON_R [facility] [id number] [place] 09:32:00 09:32:00 [facility] 2021-10-24 2021-10-24 Outpatient ERICKSON_R [facility] [id number] [place] 09:32:00 09:32:00 [facility] 2021-06-26 2021-06-26 Outpatient ERICKSON_R [facility] [id number] [place] 04:37:00 04:37:00 831 [facility] 2021-06-26 2021-06-26 Outpatient ERICKSON_R [facility] [id number] [place] 04:37:00 04:37:00 907 [facility] 2021-06-25 2021-06-25 Outpatient ERICKSON_R [facility] [id number] [place] 11:22:00 11:22:00 830 [facility] 2020-11-23 2020-11-23 Nurse Nurse, [facility] [id number] 13:48:17 14:08:17 Visit Hoda [facility] [id number] [place] [id number] CENTER [id number] [facility] 2020-11-20 2020-11-20 Office Chon [facility] [id number] 15:26:30 16:28:32 Visit Saad SPECIALTY [id number] [facility] [id number] CENTER AT [phone] [place] 198 [facility] 2020-11-20 2020-11-20 Orders Doctor SCHWARZ [id number] 00:00:00 00:00:00 Only Unassigned, AJAY [id number] [place] [facility] [id number] 2020-11-16 2020-11-16 Outpatient ERICKSON_R [facility] [id number] [place] 05:02:00 05:02:00 121 [facility] 2020-11-07 2020-11-07 Outpatient ERDUSTINON_R [facility] [id number] [place] 02:42:00 02:42:00 112 [facility] 2017-07-22 2017-07-22 [facility] [id number] [facility] 00:00:00 00:00:00 [id number] 2017-07-22 2017-07-22 Outpatient SLE [facility] [id number] [facility] 00:00:00 00:00:00 Results This patient has no known results.
[2021-12-08 23:52] LABS: Absolute Lymphocytes (CBC) 1.6 K/uL (0.7-4.9); Lymphocytes % 34.7 % (15.3-44.8); MPV 7.7 fL (7.6-11.3); RBC Red Blood Cell Count 1.28 M/uL (3.86-4.86)
[2021-12-08 23:54] LABS: Hematocrit 12.8 % (36.0-45.0)
--- NOTE | 2021-12-09 00:08 | ER ---
Nurse's Notes [facility] Name: Ashley Lewis Age: 26 yrs Sex: Female : 1995 Arrival Date: 12/08/2021 Time: 21:41 Bed 14 Private MD: Diagnosis: Anemia in chronic kidney disease;End stage renal disease Presentation: 12/08 22:36 Chief complaint: Patient states: C/O generalized weakness, SOB on exertion, fatigue, ll3 states "trouble finding words", states" I'm low on blood". Coronavirus screen: Vaccine status: Patient reports being unvaccinated. Ebola Screen: No symptoms or risks identified at this time. Initial Sepsis Screen: Does the patient meet any 2 criteria? No. Patient's initial sepsis screen is negative. Does the patient have a suspected source of infection? No. Patient's initial sepsis screen is negative. Risk Assessment: Do you want to hurt yourself or someone else? Patient reports no desire to harm self or others. Onset of symptoms is unknown. 22:36 Method Of Arrival: Ambulatory ll3 22:36 Acuity: CASI 3 ll3 Triage Assessment: 22:39 General: Appears in no apparent distress. uncomfortable, Behavior is calm, cooperative. ll3 Pain: Denies pain. Neuro: Level of Consciousness is awake, alert, obeys commands, Oriented to person, place, time, situation, Speech States had trouble finding words. Respiratory: Respiratory effort is even, unlabored, Respiratory pattern is regular, symmetrical, Breath sounds are clear bilaterally. Parent/caregiver reports the patient having shortness of breath on exertion. GI: Perineal dialysis catheter, site clean, Tegaderm dry and intact, no redness, swelling or drainage noted. : Reports inability to void, States she is a dialysis pt who no longer produces urine. Derm: Skin is intact, Skin is dry, Skin is dusky, pale, Skin temperature is cool. 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 - Social history:: Smoking status: Patient denies any tobacco usage or history of. Screenin:47 Abuse screen: Denies threats or abuse. Nutritional screening: No deficits noted. ll3 Tuberculosis screening: No symptoms or risk factors identified. 12/09 01:21 Fall Risk IV access (20 points). Mental Status- Oriented to own ability (0 pts). Total ll3 Goodwin Fall Scale indicates No Risk (0-24 pts). Assessment: 12/08 22:47 General: See triage assessment, Warm blanket provided. ll3 12/09 00:30 Reassessment: Patient and/or family updated on plan of care and expected duration. Pain ll3 level reassessed. Patient is alert, oriented x 3, equal unlabored respirations, skin warm/dry/pink. 00:38 Reassessment: Notified by lab Creatine levels are 13.4, Calcium levels are 6.7. ll3 02:08 Reassessment: Consent for receiving blood products signed. ll3 04:00 Reassessment: Patient and/or family updated on plan of care and expected duration. Pain ll3 level reassessed. Patient is alert, oriented x 3, equal unlabored respirations, skin warm/dry/pink. 05:10 Reassessment: Completed blood transfusion, tolerated well. ll3 Vital Signs: 12/08 22:08 BP 96 / 54; Pulse 84; Resp 16; Temp 98.6; Pulse Ox 100% ; lt3 23:45 BP 101 / 54; Pulse 79; Resp 15; Pulse Ox 100% ; ll3 12/09 01:20 BP 96 / 53; Pulse 84; Resp 15; Pulse Ox 100% on R/A; ll3 02:42 BP 95 / 58; Pulse 83; Resp 15; Pulse Ox 100% on R/A; ll3 02:47 BP 94 / 58; Pulse 84; Resp 14; Pulse Ox 100% ; ll3 02:52 BP 96 / 59; Pulse 83; Resp 15; Pulse Ox 100% ; ll3 03:02 BP 87 / 47; Pulse 82; Resp 16; Pulse Ox 100% ; ll3 03:45 BP 99 / 62; Pulse 81; Resp 15; Pulse Ox 100% on R/A; ll3 04:15 BP 104 / 65; Pulse 83; Resp 15; Pulse Ox 100% on R/A; ll3 04:45 BP 104 / 68; Pulse 85; Resp 16; Pulse Ox 100% on R/A; ll3 05:15 BP 102 / 68; Pulse 83; Resp 15; Pulse Ox 100% on R/A; ll3 ED Course: 12/08 21:41 Patient arrived in ED. kc5 22:13 Bruce Whitfield NP is PHCP. pm1 22:13 Ned Candelaria MD is Attending Physician. pm1 22:39 Triage completed. ll3 22:39 Arm band placed on. ll3 22:47 Patient has correct armband on for positive identification. Placed in gown. Bed in low ll3 position. Call light in reach. Side rails up X 1. Adult w/ patient. 23:46 Inserted saline lock: 24 gauge in left forearm, using aseptic technique. Blood ds4 collected. Missed attempt(s): 22 gauge in left forearm. Bleeding controlled, band aid applied, catheter tip intact. 12/09 00:08 Ishan Langley PA is Hospitalizing Provider. pm1 00:38 Gil Villaseñor RN is Primary Nurse. ll3 00:47 EKG done, by ED staff. lt3 05:47 No provider procedures requiring assistance completed. ll3 05:50 CBC with Diff Sent. ll3 06:11 Patient admitted, IV remains in place. ll3 Administered Medications: No medications were administered Outcome: 00:08 Decision to Hospitalize by Provider. pm1 05:54 Patient left the ED. bb 06:11 Admitted to Tele accompanied by heide, via stretcher, room 410, with chart, Report ll3 called to GRACIA Laurent 06:11 Condition: stable 06:11 Instructed on the need for admit, Demonstrated understanding of instructions. Signatures: Jaqueline Baker RN RN [place] Schuler ds4 Bruce Whitfield NP GEOPOLITICS TEACHER pm1 Gil Villaseñor RN RN ll3 Lashell Santacruz kc5 Julia Gonzalez lt3 Corrections: (The following items were deleted from the chart) 02:12/08 22:47 General: See triage assessment. ll3 ll3 12/09 05:51 03:00 BP 107 / 73; Pulse 96bpm; Resp 22bpm; Pulse Ox 99%; ll3 ll3 05:51 04:00 BP 129 / 73; Pulse 90bpm; Resp 21bpm; Pulse Ox 97%; ll3 ll3 05:51 05:15 BP 140 / 77; Pulse 90bpm; Resp 22bpm; Pulse Ox 98%; 3 3 05:51 05:20 Reassessment: Pt c/o cramping, ERP notified, administered NS bolus as ordered 3 3
--- NOTE | 2021-12-09 00:08 | EDPHYS ---
Physician Documentation [facility] Name: Ashley Lewis Age: 26 yrs Sex: Female : 1995 Arrival Date: 12/08/2021 Time: 21:41 Bed 14 Private MD: ED Physician Ned Candelaria HPI: 12/08 22:30 This 26 yrs old Female presents to ER via Ambulatory with complaints of General pm1 Weakness. 22:30 The patient presents to the emergency department with weakness of the entire body, pm1 generalized weakness. 22:30 Onset: The symptoms/episode began/occurred 3 day(s) ago. Context:. Associated signs and pm1 symptoms: Pertinent positives: SOB with exertion, Pertinent negatives: fever, nausea, vomiting, chest pain. Severity of symptoms: in the emergency department the symptoms are worse. The patient has experienced similar episodes in the past, multiple times, and the symptoms today are exactly the same, to previous anemia related to chronic renal disease. Dialysis patient for the past 5 years due to lupus, Transfusion for the same issue about 1 month ago at [facility]. The patient has not recently seen a physician. 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 - Social history:: Smoking status: Patient denies any tobacco usage or history of. ROS: 22:30 Cardiovascular: Negative for chest pain, palpitations, and edema, Respiratory: Negative pm1 for shortness of breath, cough, wheezing, and pleuritic chest pain, Abdomen/GI: Negative for abdominal pain, nausea, vomiting, diarrhea, and constipation. 22:30 MS/Extremity: Negative for injury and deformity, Skin: Negative for injury, rash, and discoloration. 22:30 Constitutional: Positive for fatigue, Negative for fever, poor PO intake. 22:30 Neuro: Positive for Generalized weakness. Exam: 22:30 Head/Face: Normocephalic, atraumatic. pm1 22:30 Constitutional: The patient appears in no acute distress, alert, awake, comfortable, non-diaphoretic, non-toxic, well developed, well hydrated, well groomed, well nourished, pale. 22:30 Eyes: Extraocular movements: no acute changes, Conjunctiva: pale, bilaterally. 22:30 ENT: Exam is negative for acute changes, Mouth: Lips: normal, moist, Oral mucosa: normal, pink and intact, moist. 22:30 Cardiovascular: Rate: normal, Rhythm: regular, Pulses: no pulse deficits are appreciated, Heart sounds: normal, normal S1and S2. 22:30 Respiratory: Exam negative for acute changes, respiratory distress, shortness of breath. 22:30 Musculoskeletal/extremity: Extremities: all appear grossly normal, with no appreciated pain with palpation. 22:30 Skin: Appearance: normal except for affected area, Color: pale. 22:30 Neuro: Exam negative for acute changes, Orientation: is normal, Mentation: is normal, Motor: is normal, moves all fours. Vital Signs: 22:08 BP 96 / 54; Pulse 84; Resp 16; Temp 98.6; Pulse Ox 100% ; lt3 23:45 BP 101 / 54; Pulse 79; Resp 15; Pulse Ox 100% ; ll3 / 01:20 BP 96 / 53; Pulse 84; Resp 15; Pulse Ox 100% on R/A; ll3 02:42 BP 95 / 58; Pulse 83; Resp 15; Pulse Ox 100% on R/A; ll3 02:47 BP 94 / 58; Pulse 84; Resp 14; Pulse Ox 100% ; ll3 02:52 BP 96 / 59; Pulse 83; Resp 15; Pulse Ox 100% ; ll3 03:02 BP 87 / 47; Pulse 82; Resp 16; Pulse Ox 100% ; ll3 03:45 BP 99 / 62; Pulse 81; Resp 15; Pulse Ox 100% on R/A; ll3 04:15 BP 104 / 65; Pulse 83; Resp 15; Pulse Ox 100% on R/A; ll3 04:45 BP 104 / 68; Pulse 85; Resp 16; Pulse Ox 100% on R/A; ll3 05:15 BP 102 / 68; Pulse 83; Resp 15; Pulse Ox 100% on R/A; ll3 MDM: 12/08 22:23 Patient medically screened. pm1 12/09 00:04 Data reviewed: vital signs. Data interpreted: Pulse oximetry: on room air is 100 %. pm1 Interpretation: normal. 00:04 Counseling: I had a detailed discussion with the patient and/or guardian regarding: the pm1 historical points, exam findings, and any diagnostic results supporting the discharge/admit diagnosis, lab results, the need for further work-up and treatment in the hospital. 12/08 22:30 Order name: CBC with Diff pm1 12/08 22:30 Order name: CMP; Complete Time: 00:41 pm1 12/08 22:30 Order name: Type And Screen pm1 12/08 22:30 Order name: CBC with Automated Diff; Complete Time: 23:57 EDMS 12/09 00:24 Order name: COVID-19 SARS RT PCR (Document "Date of Onset" if Symptomatic) pm1 12/09 00:59 Order name: Packed RBC Leukored EDMS 12/08 22:30 Order name: IV Saline Lock; Complete Time: 23:46 pm1 12/09 00:03 Order name: Transfuse; Complete Time: 05:50 pm1 12/09 00:03 Order name: EKG; Complete Time: 00:03 pm1 12/09 00:03 Order name: EKG - Nurse/Tech; Complete Time: 00:28 pm1 12/09 01:20 Order name: CONS Physician Consult; Complete Time: 05:50 EDMS Administered Medications: No medications were administered Disposition Summary: 12/09/21 00:08 Hospitalization Ordered Hospitalization Status: Observation pm1 Provider: Ishan Langley pm1 Location: Telemetry/MedSurg (observation) pm1 Condition: Fair pm1 Problem: new pm1 Symptoms: have improved pm1 Bed/Room Type: Standard pm1 Room Assignment: 410(12/09/21 05:09) Diagnosis - Anemia in chronic kidney disease pm1 - End stage renal disease pm1 Forms: - Medication Reconciliation Form pm1 - SBAR form pm1 Addendum: 12/10/2021 06:21 Co-signature as Attending Physician, Ned Candelaria MD I agree with the assessment and c morales plan of care. Signatures: Dispatcher [employer] EDND Yessica Landon RN RN mw Anderson, Corey, MD MD cha Marinas, Patrick, POLICE COMMANDING OFFICER POLICE COMMANDING OFFICER pm1 Gil Villaseñor RN RN ll3 Corrections: (The following items were deleted from the chart) 02/13 05:09 00:08 pm1 mw
[2021-12-09 00:35] LABS: Albumin 2.1 g/dL (3.4-5.0); Bilirubin Total 0.2 mg/dL (0.2-1.0); Protein, Total 5.3 g/dL (6.4-8.2)
[2021-12-09] MEDS ORDERED: NA CHLORIDE 0.9% 1,000 ML ONE (01:21)
[2021-12-09] MEDS ORDERED: NA CHLORIDE 0.9% 250 ML ONE ×3 (02:44→11:54)
--- NOTE | 2021-12-09 03:04 | P.HP ---
Certification for Inpatient Patient admitted to: Observation With expected LOS: <2 Midnights Patient will require the following post-hospital care: None Practitioner: I am a practitioner with admitting privileges, knowledge of patient current condition, hospital course, and medical plan of care. Services: Services provided to patient in accordance with Admission requirements found in Title 42 Section 412.3 of the Code of Federal Regulations Patient History Date of Service: 12/09/21 Reason for admission: anemia History of Present Illness: Ms. Lewis is a 26 yo F with lupus, ESRD on PD, and AoCD who presents with one day of worsening weakness, fatigue, lightheadedness and HOPPER. Hemoglobin 4.2, Platelets 151. She has required multiple blood transfusions in the past. She last had 1 unit of blood transfused a month ago. Typically, she has 2 units transfused per session at [facility]. 2 units pRBCs ordered in the ED. BUN 44 Cr 13.44 GFR 3. She did not do her peritoneal dialysis this evening. Her dad is going to bring the equipment in the morning. Systolic blood pressure in the 90s this evening. She says her normal blood pressure is 120s/80s. She took all of her medications including her antihypertensives this evening already. Allergies No Known Allergies Allergy (Verified 11/02/21 09:54) Home Medications: Aspirin [Low Dose Aspirin EC] 81 mg PO DAILY 06/25/21 Carvedilol [Coreg] 25 mg PO BID 06/25/21 Cholecalciferol (Vitamin D3) [Vitamin D3] 5,000 unit PO DAILY 06/25/21 Esomeprazole Magnesium [Nexium] 20 mg PO DAILY 06/25/21 Furosemide 40 mg PO BID 06/25/21 Hydroxychloroquine [Plaquenil] 200 mg PO DAILY 06/25/21 Mirtazapine 15 mg PO DAILY 06/25/21 Nifedipine [Nifedipine ER] 30 mg PO DAILY 06/25/21 Ramipril [Altace] 10 mg PO BID 06/25/21 azaTHIOprine [Imuran] 50 mg PO DAILY 06/25/21 predniSONE [Prednisone*] 1 mg PO BID 06/25/21 - Past Medical/Surgical History -: lupus -: ESRD on PD -: AoCD -: knee surgery -: elbow surgery -: fistula placement - Family History Family History: Reviewed- Non-Contributory - Social History Smoking Status: Never smoker Alcohol use: No CD- Drugs: No Caffeine use: No Place of Residence: Home Review of Systems 10-point ROS is otherwise unremarkable General: Weakness Eyes: Unremarkable ENT: Unremarkable Respiratory: SOB with Excertion Cardiovascular: Light Headedness Gastrointestinal: Unremarkable Genitourinary: Unremarkable Musculoskeletal: Unremarkable Integumentary: Unremarkable Neurological: Weakness Lymphatics: Unremarkable Physical Examination - Physical Exam General: Alert, In no apparent distress HEENT: Atraumatic, PERRLA, Mucous membr. moist/pink, EOMI, Sclerae nonicteric Neck: Supple, 2+ carotid pulse no bruit, No LAD, Without JVD or thyroid abnormality Respiratory: Clear to auscultation bilaterally, Normal air movement Cardiovascular: Regular rate/rhythm, Normal S1 S2 Gastrointestinal: Normal bowel sounds, No tenderness Musculoskeletal: No tenderness Integumentary: No rashes, Other (pallor ) Neurological: Normal speech, Normal strength at 5/5 x4 extr, Normal tone, Normal affect Lymphatics: No axilla or inguinal lymphadenopathy - Studies Laboratory Data (last 24 hrs) 12/08/21 23:41: Sodium 135 L, Potassium 4.0, BUN 44 H, Creatinine 13.40 H*, Glucose 110 H, Total Bilirubin 0.2, AST 11 L, ALT 13, Alkaline Phosphatase 62 12/08/21 23:41: WBC 4.70, Hgb 4.2 L*, Hct 12.8 L*, Plt Count 151 L Assessment and Plan - Problems (Diagnosis) (1) Lupus (systemic lupus erythematosus) Current Visit: Yes Status: Chronic Qualifiers: Systemic lupus erythematosus type: unspecified Systemic lupus erythematosus organ involvement: unspecified Qualified Code(s): M32.9 - Systemic lupus erythematosus, unspecified (2) ESRD (end stage renal disease) on dialysis Current Visit: Yes Status: Chronic (3) Anemia Current Visit: Yes Status: Chronic Qualifiers: Anemia type: due to chronic kidney disease Chronic kidney disease stage: on chronic dialysis Qualified Code(s): N18.6 - End stage renal disease; D63.1 - Anemia in chronic kidney disease; Z99.2 - Dependence on renal dialysis (4) Blood transfusion during current hospitalisation Current Visit: Yes Status: Acute - Plan nephrology consulted patient will receive 2 units pRBCs, will check 2 hour H/H post blood transfusion monitor blood pressure reconcile and continue home medications DVT ppx Discharge Plan: Home Plan to discharge in: 24 Hours - Advance Directives Does patient have a Living Will: No Does patient have a Durable POA for Healthcare: No - Code Status/Comfort Care Code Status Assessed: Yes (full code ) Critical Care: No Time Spent Managing Pts Care (In Minutes): 70
[2021-12-09] MEDS ORDERED: ONDANSETRON 4 MG/2 ML VIAL IV PRN (05:35)
[2021-12-09] MEDS ORDERED: ACETAMINOPHEN 500 MG TAB PO PRN (05:35)
[2021-12-09 06:05] VITALS: BMI 20.1
--- NOTE | 2021-12-09 08:16 | RAD REPORT ---
EXAM DESCRIPTION: RAD - Chest Single View - 12/09/2021 3:33 am CLINICAL HISTORY: weakness, shortness of breath COMPARISON: None available at time of dictation TECHNIQUE: AP portable chest image was obtained 12/09/2021 3:33 am . FINDINGS: Lungs are clear. Heart and vasculature are normal. No measurable pleural effusion and no p neumothorax. No acute bone findings seen. Calcifications are seen at each shoulder joint likely calci fic tendinosis. No acute aortic findings suspected. IMPRESSION: No acute cardiopulmonary process.
[2021-12-09 10:03] VITALS: O2SAT 98
[2021-12-09] MEDS ORDERED: LORazepam 2 MG/ML VIAL ONE (10:32)
[2021-12-09] MEDS ORDERED: LORazepam 2 MG/ML VIAL IV ONE (11:00)
--- NOTE | 2021-12-09 11:23 | RAD REPORT ---
EXAM DESCRIPTION: CT - Head Brain Wo Cont - 12/09/2021 11:15 am CLINICAL HISTORY: Seizure COMPARISON: None TECHNIQUE: Axial 5 mm thick images of the head were obtained without IV contrast. All CT scans are performed using dose optimization technique as appropriate and may include automated exposure control or mA/KV adjustment according to patient size. FINDINGS: No intracranial hemorrhage, mass, edema or shift of mid-line structures. No acute infarcti on changes seen. No abnormal extra-axial fluid collections. Ventricles are normal. Mastoid air cells and visualized portions of the paranasal sinuses are clear. No acute bony findings. IMPRESSION: Negative non-contrast CT head examination.
[2021-12-09] MEDS ORDERED: levETIRAcetam 500 MG in NA CHLORIDE 0.9% 100 ML IV ONE (11:24)
[2021-12-09] MEDS ORDERED: CALCIUM GLUC 10% INJ 9.3 MEQ in NA CHLORIDE 0.9% 100 ML IV ONE (11:30)
--- NOTE | 2021-12-09 11:34 | P.PN ---
Subjective Date of Service: 12/09/21 Chief Complaint: anemia Patient had a grandmal seizure while having a conversation with her. She became unresponsive after the seizure. Family denies any prior history of seizures. Just finished 1 unit PRBC transfusion. Physical Examination - Vital Signs Temperature: 98.6 F Blood Pressure: 110/69 Pulse: 82 Respirations: 16 Pulse Ox (%): 100 - Physical Exam General: Unresponsive HEENT: Mucous membr. moist/pink Neck: JVD not distended Respiratory: Clear to auscultation bilaterally, Normal air movement Cardiovascular: No edema, Regular rate/rhythm, Normal S1 S2 Gastrointestinal: Normal bowel sounds, Soft and benign, Non-distended, No tenderness Musculoskeletal: No swelling Integumentary: No rashes, No erythema Neurological: Other (Unresponsive) - Studies Laboratory Data (last 24 hrs) 12/08/21 23:41: Sodium 135 L, Potassium 4.0, BUN 44 H, Creatinine 13.40 H*, Glucose 110 H, Total Bilirubin 0.2, AST 11 L, ALT 13, Alkaline Phosphatase 62 12/08/21 23:41: WBC 4.70, Hgb 4.2 L*, Hct 12.8 L*, Plt Count 151 L Assessment And Plan - Current Problems (Diagnosis) (1) New onset seizure Current Visit: Yes Status: Acute (2) Anemia in chronic kidney disease Current Visit: Yes Status: Acute (3) Hypocalcemia Current Visit: Yes Status: Acute - Plan Patient given IV Ativan during the seizure episode. Case discussed with Dr. Mcclure. CT requested stat. Dr. Mcclure recommend MRI of the brain and EEG to be done tomorrow, and IV Keppra. Patient given IV Keppra 500 mg loading dose, followed by 250 mg twice daily- renal dose. IV calcium gluconate for mild hypocalcemia. Corrected calcium level is 8.2. Check ionized calcium. Ativan as needed for breakthrough seizures. Patient will need at least 3 unit PRBC transfusion. Neurochecks Seizure precautions. Patient seen by nephrology for peritoneal dialysis. Monitor and optimize electrolytes. Keep n.p.o. for now.
[2021-12-09] MEDS ORDERED: NA CHLORIDE 0.9% 500 ML ONE (11:50)
[2021-12-09] MEDS: CALCIUM GLUC 10% INJ 4.65 MEQ in NA CHLORIDE 0.9% 50 ML IV SCH ×2 (12:06→14:14)
--- NOTE | 2021-12-09 12:09 | P.CNS ---
Date of Consult: 12/09/21 Reason for Consult: ESRD , fluid and rio Chief Complaint: anemia History of Present Illness: pt is dorwsy now after ativan, hx obtained mainly from chart and clinic note A 26 yo F with PMhx of ESRD on PD , lupus, HTN and anemia of chronic disease Presented with worsening weakness, fatigue, lightheadedness . Hemoglobin 4.2, Platelets 151. She has required multiple blood transfusions in the past. She last had 1 unit of blood transfused a month ago. this morning pt had seizure, she has no prior history of seizure ROS limited due to sedation General : weakness, HEENT: Denies dry, vision changes and headache Resp: denies SOB, Cardiovascular: denied chest pain, palpitation GI: denies abdominal pain, diarrhea or constipation : denies dysuria, urgency, foamy urine or blood tinged urine Musculoskeletal: denies muscle aches, joint pain Extre: denies pain numbness and swelling Physical exam General: Awake, drowsy, responsive to verbal stimulie, pale CHEST; CTAB, no wheezes or rales HEART : RRR. Normal S1,2 no murmur or rub Abd: soft, Nt, PD catheter Ext: no edema , Lt AVF , no bruit or thrill Skin : No rash A/P ESRD Cont PD , family will bring machine Acute on chronic anemia pt is drowsy now, but she denied menorrhagea, will check again when she is alert Will start epogen 3 prbc will give lasix will check for complement and Anti-DS Seizure no prior Hx F/U head Ct , MRI and EEG started on keppra Neurology consulted Bun 48 , uremia unlikely to contribute corrected calcium >8.0, will check ionized calcium HTN hold BP meds for now metabolic bone disease will resume binders will start calcitriol hold sensipar SLE resume Imuran , hydroxychloroquine and prednsione Allergies No Known Allergies Allergy (Verified 12/09/21 06:06) Home Medications: Aspirin [Low Dose Aspirin EC] 81 mg PO DAILY 06/25/21 Carvedilol [Coreg] 25 mg PO BID 06/25/21 Cholecalciferol (Vitamin D3) [Vitamin D3] 5,000 unit PO DAILY 06/25/21 Esomeprazole Magnesium [Nexium] 20 mg PO DAILY 06/25/21 Furosemide 40 mg PO BID 06/25/21 Hydroxychloroquine [Plaquenil] 200 mg PO DAILY 06/25/21 Mirtazapine 15 mg PO DAILY 06/25/21 Nifedipine [Nifedipine ER] 30 mg PO DAILY 06/25/21 Ramipril [Altace] 10 mg PO BID 06/25/21 azaTHIOprine [Imuran] 50 mg PO DAILY 06/25/21 predniSONE [Prednisone*] 1 mg PO BID 06/25/21 - Past Medical/Surgical History Diabetic: No -: lupus -: ESRD on PD -: AoCD -: knee surgery -: elbow surgery -: fistula placement - Family History Father Medical History: Hypertension Mother Medical History: Hypertension - Social History Alcohol use: No CD- Drugs: No Caffeine use: No Place of Residence: Home Physical Examination Temp Pulse Resp BP Pulse Ox 98.6 F 82 16 110/69 100 12/09/21 11:34 12/09/21 11:34 12/09/21 11:34 12/09/21 11:34 12/09/21 11:34 Laboratory Data (last 24 hrs) 12/08/21 23:41: Sodium 135 L, Potassium 4.0, BUN 44 H, Creatinine 13.40 H*, Glucose 110 H, Total Bilirubin 0.2, AST 11 L, ALT 13, Alkaline Phosphatase 62 12/08/21 23:41: WBC 4.70, Hgb 4.2 L*, Hct 12.8 L*, Plt Count 151 L
[2021-12-09] MEDS: CALCITROL 0.25 MCG CAP PO SCH (12:52)
[2021-12-09] MEDS: SEVELAMER CARBONATE 800 MG TABLET PO SCH (17:00)
[2021-12-09 18:26] LABS: Hematocrit 24.3 % (36.0-45.0)
[2021-12-09 18:37] LABS: Protime INR 1.04
[2021-12-09] MEDS: levETIRAcetam 250 MG in NA CHLORIDE 0.9% 100 ML IV SCH (20:29)
[2021-12-09] MEDS ORDERED: PANTOPRAZOLE 40MG TABLET PO ONE (20:52)
[2021-12-09] MEDS ORDERED: MIRTAZAPINE 15 MG TAB PO SCH (21:00)
[2021-12-09] MEDS: MORPHINE 2 MG/ML SYR IV PRN (21:04)
[2021-12-10 05:42] LABS: Absolute Lymphocytes (CBC) 1.4 K/uL (0.7-4.9); Hematocrit 25.8 % (36.0-45.0); Lymphocytes % 36.9 % (15.3-44.8); MPV 7.3 fL (7.6-11.3); RBC Red Blood Cell Count 2.77 M/uL (3.86-4.86)
[2021-12-10 05:59] LABS: Bilirubin Total 0.3 mg/dL (0.2-1.0); Ferritin 912.6 ng/mL (8-388); Magnesium 3.1 mg/dL (1.8-2.4); Phosphorus 5.8 mg/dL (2.5-4.9); Potassium 3.8 mmol/L (3.5-5.1); Protein, Total 5.2 g/dL (6.4-8.2)
[2021-12-10] MEDS: SEVELAMER CARBONATE 800 MG TABLET PO SCH ×3 (08:00→16:44)
[2021-12-10] MEDS ORDERED: AZATHIOPRINE 50 MG TABLET PO SCH ×2 (09:00→10:24)
[2021-12-10] MEDS: CALCITROL 0.25 MCG CAP PO SCH (09:06)
[2021-12-10] MEDS: levETIRAcetam 250 MG in NA CHLORIDE 0.9% 100 ML IV SCH (10:17)
[2021-12-10] MEDS ORDERED: ASPIRIN EC 81 MG TAB PO SCH (10:23)
[2021-12-10] MEDS ORDERED: predniSONE 1 MG TAB PO SCH (11:00)
[2021-12-10] MEDS ORDERED: PANTOPRAZOLE 40MG TABLET PO SCH (11:00)
[2021-12-10] MEDS: MORPHINE 2 MG/ML SYR IV PRN (11:07)
[2021-12-10] MEDS ORDERED: HYDROXYCHLOROQUINE 200MG TAB PO SCH (12:00)
[2021-12-10 12:57] VITALS: TEMP 98.1
--- NOTE | 2021-12-10 13:16 | RAD REPORT ---
EXAM DESCRIPTION: MRI - Brain Wo Cont - 12/10/2021 11:40 am CLINICAL HISTORY: New onset seizure COMPARISON: Head Brain Wo Cont dated 12/09/2021 TECHNIQUE: Sagittal T1-weighted images were obtained along with PD/heavily T2-weighted and T2-FLAIR images. Axial DWI and ADC mapping sequences were also obtained along with coronal heavily T2-weighted images were obtained. FINDINGS: Subdural collection measuring approximately 6 millimeters along the left frontal lobe is n oted. This has mixed signal intensity. Some portions are T2 hypointense which could reflect blood pro ducts. On T2/FLAIR, hyperintense signal in the left middle frontal lobe is curvilinear. Due to the lo cation along the curvature of the calvarium, is difficult to discern if the T2 hyperintensity is base d within the cortex as there is volume averaging. It does not appear to be subarachnoid. Mastoid air cells and paranasal sinuses are clear. IMPRESSION: Extra-axial collection along the left middle frontal lobe is most consistent with a smal l subdural hematoma. No significant mass effect is identified. No other significant abnormalities shayy ntified. Electronic communication sent to Dr. Martin by Dr. Florian at 1311 on 12/10/21.
[2021-12-10] MEDS ORDERED: EPOETIN ALFA 10,000 UNIT/ML VIAL SQ SCH (17:00)
[2021-12-10] MEDS ORDERED: EPOETIN ALFA-EPBX 10,000 UNIT/ML VIAL SQ SCH (17:00)
--- NOTE | 2021-12-10 17:49 | P.DS ---
Admission Date: 12/09/21 Discharge Date: 12/10/21 Disposition: ROUTINE DISCHARGE Discharge Condition: FAIR Reason for Admission: anemia - Problems (1) New onset seizure Current Visit: Yes Status: Acute (2) Anemia in chronic kidney disease Current Visit: Yes Status: Acute (3) Hypocalcemia Current Visit: Yes Status: Acute Brief History of Present Illness: Ms. Lewis is a 26 yo F with lupus, ESRD on PD, and AoCD who presents with one day of worsening weakness, fatigue, lightheadedness and HOPPER. Hemoglobin 4.2, Platelets 151. She has required multiple blood transfusions in the past. She last had 1 unit of blood transfused a month ago. Typically, she has 2 units transfused per session at [facility]. 2 units pRBCs ordered in the ED. BUN 44 Cr 13.44 GFR 3. She did not do her peritoneal dialysis this evening. Her dad is going to bring the equipment in the morning. Systolic blood pressure in the 90s. She took all of her medications including her antihypertensives before coming to the ED. patient hospitalized for further management. Hospital Course: Patient admitted to the medical floor and transfused a total of 3 unit PRBC. He had a grand mal seizure episode, she was briefly unresponsive during the postictal state. CT head done did not show any acute disease. Case discussed with Dr. Mcclure, patient started on Keppra. MRI of the brain showed small subdural hemorrhage, causes unknown. Patient denies any trauma to the head prior to coming to the ED. She did not fall during the seizures. Patient seen and evaluated by Dr. Mcclure who recommends treatment for the seizures with oral Keppra as outpatient. EEG done to be followed by Dr. Mcclure. She had mild hypercalcemia which was corrected with IV calcium replacement. Patient is awake and alert, has no complaint. Patient seen by nephrology and she underwent routine hemodialysis. Patient deemed stable for discharge per Dr. Mcclure. Dr. Mcclure will follow up with her in the office for repeat CT to follow the subdural hematoma. Vital Signs/Physical Exam: Temp Pulse Resp BP Pulse Ox 98.1 F 72 18 140/81 100 12/10/21 12:00 12/10/21 12:00 12/10/21 12:00 12/10/21 12:00 12/10/21 12:00 General: Alert, In no apparent distress HEENT: Normocephalic, Mucous membr. moist/pink, EOMI, Sclerae nonicteric Neck: Supple, JVD not distended Respiratory: Clear to auscultation bilaterally, Normal air movement Cardiovascular: No edema, Regular rate/rhythm, Normal S1 S2 Gastrointestinal: Normal bowel sounds, Soft and benign, Non-distended, No tenderness Musculoskeletal: No swelling Integumentary: No rashes Neurological: Normal speech, Normal strength at 5/5 x4 extr Laboratory Data at Discharge: WBC 3.80 K/uL (4.3-10.9) L D 12/10/21 05:10 Hgb 8.7 g/dL (12.0-15.0) L 12/10/21 05:10 Hct 25.8 % (36.0-45.0) L 12/10/21 05:10 Plt Count 164 K/uL (152-406) 12/10/21 05:10 PT 12.0 SECONDS (9.5-12.5) 12/09/21 18:18 INR 1.04 12/09/21 18:18 APTT 31.0 SECONDS (24.3-36.9) 12/09/21 18:18 Sodium 136 mmol/L (136-145) 12/10/21 05:10 Potassium 3.8 mmol/L (3.5-5.1) 12/10/21 05:10 BUN 45 mg/dL (7-18) H 12/10/21 05:10 Creatinine 12.60 mg/dL (0.55-1.3) H* 12/10/21 05:10 Glucose 106 mg/dL (74-106) 12/10/21 05:10 Phosphorus 5.8 mg/dL (2.5-4.9) H 12/10/21 05:10 Magnesium 3.1 mg/dL (1.8-2.4) H 12/10/21 05:10 Total Bilirubin 0.3 mg/dL (0.2-1.0) 12/10/21 05:10 AST 11 U/L (15-37) L 12/10/21 05:10 ALT 12 U/L (12-78) 12/10/21 05:10 Alkaline Phosphatase 57 U/L (45-117) 12/10/21 05:10 Home Medications: Carvedilol [Coreg] 25 mg PO BID 06/25/21 Cholecalciferol (Vitamin D3) [Vitamin D3] 5,000 unit PO DAILY 06/25/21 Esomeprazole Magnesium [Nexium] 20 mg PO DAILY 06/25/21 Furosemide 40 mg PO BID 06/25/21 Hydroxychloroquine [Plaquenil*] 200 mg PO DAILY 06/25/21 Mirtazapine 15 mg PO DAILY 06/25/21 Nifedipine [Nifedipine ER] 30 mg PO DAILY 06/25/21 Ramipril [Altace] 10 mg PO BID 06/25/21 azaTHIOprine [Imuran*] 50 mg PO DAILY 06/25/21 predniSONE [Prednisone*] 1 mg PO BID 06/25/21 Calcitrol [Rocaltrol*] 0.25 mcg PO DAILY #30 cap 12/10/21 Epoetin Ivan-Epbx [Retacrit] 20,000 unit SQ M,W,F vial 12/10/21 Levetiracetam [Keppra] 250 mg PO Q12H #60 tablet 12/10/21 Sevelamer Carbonate [Renvela*] 1,600 mg PO TIDWM #180 tablet 12/10/21 New Medications: Levetiracetam [Keppra] 250 mg PO Q12H #60 tablet Sevelamer Carbonate [Renvela*] 1,600 mg PO TIDWM #180 tablet Calcitrol [Rocaltrol*] 0.25 mcg PO DAILY #30 cap Diet: Renal Activity: Seizure precautions Followup: Lloyd Mcclure MD [ASSOCIATE-ACTIVE - CAN ADMIT] - 2-3 Days (For repeat CT head to follow intracranial bleed. Please call the office for an appointment.) NONE,NONE [Primary Care Provider] - Time spent managing pt's care (in minutes): 36
[2021-12-10 18:31] VITALS: BP 169/81
[2021-12-10] MEDS ORDERED: carvediloL 25 MG TAB PO SCH (21:00)
[2021-12-10] MEDS ORDERED: ramipriL 5 MG CAP PO SCH (21:00)
[2021-12-10] MEDS ORDERED: FUROSEMIDE 40 MG TABLET PO SCH (21:00)
--- NOTE | 2021-12-10 22:42 | CON ---
Consultation called because of seizure new onset. History Of Present Illness: Ms. Lewis is a 26-year-old patient with end-stage renal disease on pe ritoneal hemodialysis at home, also has lupus, who comes to [facility] with severe fatigue, weakness, lightheadedness, and dyspnea on exertion. She was found to have a hemoglobin of 4.[address] atelets 151. She had received multiple transfusions in the past because of severe anemia and she was given a unit of blood, last was 1 month ago and she typically gets 2 units. She had just received a unit of blood at [facility] when she was noted to have a generalized tonic-clonic seizure b y the hospitalist. In consultation, we discussed the patient's case and she was given a half load of Keppra 500 mg and then put on 250 mg twice daily. Since that load, which is yesterday, she has not had an additional event. Her head CT scan was unremarkable at that time. He was seen at [facility], however, today an MRI of her brain identified an extra-axial collection along the left midd le and frontal lobe, most consistent with small subdural hematoma. The patient possibly had this dev elopment since the seizure or maybe during the seizure because it was a tonic-clonic event and it ileana uld be noted that the head CT scan was negative. Past Medical History: As noted. Allergies: NO KNOWN DRUG ALLERGIES. Medications: At home, aspirin 81 mg daily, Coreg 25 mg daily, vitamin D3 5000 units daily, Nexium 20 mg daily, furosemide 40 mg twice daily, Plaquenil 200 mg daily, mirtazapine 50 mg daily, nifedipine 30 mg daily, Altace 10 mg daily, Imuran 50 mg daily, prednisone 1 mg twice daily. Past Surgical History: Fistula placement for dialysis, elbow surgery, and knee surgery. Family History: Noncontributory. Social History: No alcohol, tobacco, or IV drug use. Review of Systems: She has diffuse weakness, fatigue, shortness of breath, dyspnea on exertion. Otherwise, negative on a 10-point systems review. Physical Examination: Vital Signs: Blood pressure 140/80, pulse 72, respiratory rate 16, temperature 98.1, oxygen saturati on 100% on room air. Weight 110 pounds, height 5 feet 2 inches, BMI 20.1. General: Ms. Lewis is resting in bed. She is in no acute distress. HEENT: She is normocephalic, atraumatic. Sclerae are anicteric. Oropharynx is pink and moist. Neck: Supple. Chest: Clear. Heart: Regular. Extremities: Show no clubbing, cyanosis, or edema. Neurological: She is alert and oriented to person, place, time, and situation. Follows commands margaret ropriately. She has no cranial nerve deficits on 2 through 12. 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 She has good gait, stride and arm swing. Laboratory Studies: Complete blood count with differential shows white blood cell count 3.8; hemoglo bin of 8.7, up from 4.2; platelets 164. INR 1.04. Chemistries show creatinine 12.6, sodium 136, pot assium 3.8, calcium 7.1. Procalcitonin was 0.16. AST 11, ALT 12, alkaline phosphatase 67. She has lupus screen pending. Her COVID-19 test is positive on yesterday, as of . Assessment: Ms. Lewis is a 26-year-old patient with end-stage renal disease, on hemodialysis as w ell as hypertension. She has new-onset seizures and she has a left middle lobe subdural hematoma, po ssibly after seizing. Plan: 1.May consider decreasing aspirin 81 mg every other day. 2.Continue Keppra 250 mg twice daily. 3.Continue with management of anemia as per the Renal Service. 4.She does have a COVID-19 positivity and will be at ongoing risk of ischemic strokes and should con tinue the aspirin as noted. Also, lipid panel should be done and she will be on folic acid 1 mg nick y. 5.After she is discharged, she can follow up in Dr. Mcclure's clinic within a month. IVETTE/ETTA Voice ID: [id number] Report ID: [id number]
--- NOTE | 2021-12-11 02:18 | PN ---
Date of Progress Note: 12/10/2021 Chief Complaint: End-stage renal disease, on peritoneal dialysis, fluid overload. History: Patient came to the hospital because of generalized weakness. 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 The patient is on peritoneal d ialysis. She has history of hypertension, anemia of chronic disease due to end-stage renal disease. She was complaining of lightheadedness and she developed seizures during this admission. She does n ot have a prior history of seizures. Today, she is feeling better. Review of Systems: Denies fever, chest pain, palpitations. Physical Examination: Respiratory: Normal respiratory effort. Heart: S1, S2. Abdomen: Soft, benign. Extremities: No skin rashes. Impression And Plan: 1.End-stage renal disease. She had peritoneal dialysis done last night. She is doing better. She denies melena, hematemesis. The patient will receive blood transfusion today. Monitor hemoglobin le janey. 2.Seizure. The patient was started on Keppra and Neurology was consulted. 3.Hypertension, on blood pressure medication, tolerating blood pressure medication. 4.Metabolic lung disease. Resume binders and restart . Monitor calcium levels. 5.Systemic lupus erythematosus. Patient was resumed on Imuran and hydroxychloroquine and prednisone. Patient will follow up with Rheumatology, Nephrology. SUSIE/ETTA Voice ID: [id number] Report ID: [id number]
[2021-12-11] MEDS ORDERED: VITAMIN D 5,000 UNIT CAP PO SCH (09:00)
[2021-12-11] MEDS ORDERED: MIRTAZAPINE 15 MG TAB PO SCH (09:00)
--- NOTE | 2021-12-11 13:47 | EEG ---
CHART: [id number] TEST ID#: [id number] DATE OF STUDY: 12/10/2021 THE EEG WAS RECORDED PORTBALE IN THE PATIENT'S ROOM ON A 17 CHANNEL MACHINE. ELECTRODES WERE APPLIED IN THE USUAL MANNER USING THE INTERNATIONAL 10-20 SYSTEM. THE WAKING BACKGROUND RHYTHM IN THIS RECORD CONSISTS OF WELL DEVELOPED AND WELL ORGANIZED WAVES OF 9 HZ., MAXIMAL IN THE POSTERIOR HEAD REGIONS WHICH ATTENUATE NORMALLY WITH EYE OPENING. LOW-VOLTAGE 18-22 HZ ACTVIITY IS EXPRESSED IN THE FRONTAL REGIONS. THERE ARE NO FOCAL OR LATERALIZING FEATURES. NO EPILEPTIFORM ACTIVITY APPEARS. SLEEP OCCURRED NATURALLY. IN ADDITION TO NORMAL SLEEP PATTERNS. HYPERVENTILATION WAS NOT PERFORMED. PHOTIC STIMULATION PRODUCED GOOD DRIVING BILATERALLY. IMPRESSION: NORMAL EEG FOR THE AGE OF THE PATIENT IN [place], DROWSINESS AND SLEEP.
== END 2021-12-10 18:40 | disposition home or self-care (01) | DRG 682 ==
LOC: ER 21:40 → ERHOLD 12-09 01:29 → 4TH 12-09 05:17
PROVIDERS: ADMIT Internal Medicine; ATTEND Internal Medicine
PROC: 30233N1 Transfusion of Nonautologous Red Blood Cells into Peripheral Vein, Percutaneous Approach (ICD-10-PCS; principal; 2021-12-09)
DX: I12.0 Hypertensive chronic kidney disease with stage 5 chronic kidney disease or end stage renal disease (principal); N18.6 End stage renal disease; I62.00 Nontraumatic subdural hemorrhage, unspecified; U07.1 COVID-19; D63.1 Anemia in chronic kidney disease; R56.9 Unspecified convulsions; M32.14 Glomerular disease in systemic lupus erythematosus; Z99.2 Dependence on renal dialysis; E83.51 Hypocalcemia; E83.9 Disorder of mineral metabolism, unspecified; E88.9 Metabolic disorder, unspecified
CPT/HCPCS: 36415; 70450; 70551; 71045; 80053; 82330; 82728; 83735; 84100; 84145; 85014; 85018; 85025; 85610; 85730; 86141; 86160; 86225; 86850; 86900; 86901; 93005; 94760; 95816; 99285; J0610; J1953; J2270; J2405; J7030; J7040; J7050; J7500; P9016; Q5106; U0003

== ENCOUNTER 2022-04-06 09:47 | Emergency (ER) | payer OTHER ==
--- OUTSIDE RECORDS SUMMARY | 2022-04-06 09:51 | XMS REPORT | Continuity of Care Document ---
:1995 Author Organization [facility] t Address [address] [place] [address] Care Team Providers Name Role Phone Aleena HAMMONDS Primary Care Physician HEMAL Attending Clinician Unavailable Meredith Shah MD Attending Clinician Wilner Coleman MD Attending Clinician Unavailable Celi EDUARDO L Attending Clinician Eileen OLIVAREZ Attending Clinician Unavailable Eileen OLIVAREZ Attending Clinician Unavailable Eileen Olivarez MD Attending Clinician Only, Test Attending Clinician Unavailable Naveen HAMMONDS Attending Clinician NAVEEN Attending Clinician Unavailable Roland HAMMONDS, K.H. Attending Clinician MARV Attending Clinician Unavailable NurseHoda Attending Clinician Unavailable Luis Angel Givens MD Attending Clinician Doctor Unassigned, Name Attending Clinician Unavailable REEEileen So Admitting Clinician Unavailable Eileen Olivarez MD Admitting Clinician PARDEEP_R Admitting Clinician Unavailable Payers Payer Name Policy Type Policy Number Effective Date Expiration Date S ource [place]: [id number] 2016 [place] 00:00:00 [facility] - [id number] 2020 [facility] 00:00:00 (MEDICARE REPLACEMENT/ADVANTA GE - H[place]) [place] [id number] [place] [facility] [id number] 2018 [employer] [place] 00:00:00 (MEDICAID HMO) Problems Condition Condition Condition Status Onset Resolution Last Treating Co mments Source Name Details Category Date Date Treatment Clinician Date Nausea and Nausea and Disease Active Overview : Univers vomiting, vomiting, 5-16 Formattin i ty of intractabi intractabi 00:00: g of this [place] lity of lity of 00 note Medical vomiting vomiting might be Bran ch not not different specified, specified, from the unspecifie unspecifie original. d vomiting d vomiting Added type type automatic ally from request for surgery [id number] Chronic Chronic Disease Active Overview: Univ ers GERD GERD 5-16 Formattin ity of 00:00: g of this [place] 00 note Medical might be Branch different from the original. Added automatic ally from request for surgery [id number] Dysphagia, Dysphagia, Disease Active Overview : Univers pharyngoes pharyngoes 5-16 Formattin ity of ophageal ophageal 00:00: g of this [place] as phase phase 00 note Medical might be Branch different from the original. Added automatic ally from request for surgery [id number] Early Early Disease Active Overview: Univer s satiety satiety 5-16 Formattin ity o f 00:00: g of this [place] 00 note Medical might be Branch different from the original. Added automatic ally from request for surgery [id number] Decreased Decreased Disease Active Uni vers range of range of 4-08 it[place] of motion [place] right right 00 Medical elbow elbow Branch Decreased Decreased Disease Active Uni vers activities activities 4-08 it y of of daily of daily 00:00: [place] living living 00 Medical (ADL) (ADL) Branch Chronic Chronic Disease Active Univers combined combined 1-11 ity of systolic systolic 00:00: [place] and and 00 Medical diastolic diastolic Bran ch heart heart failure failure Shortness Shortness Disease Active Uni vers of breath of breath 1-11 ity of 00:00: [place] 00 Medical Branch Hypercoagu Hypercoagu Disease Active U nivers lable lable 9-08 ity of state state 00:00: [place] 00 Medical Branch Anticoagul Anticoagul Disease Active 2019 U nivers ation ation 9-03 ity of management management [place] 00 [facility] lai Branch Other Other Disease Active 2019 Univers acute acute 8-30 it[place] of pulmonary pulmonary 00:[place] embol[place] embolism 00 Medica l without without Branch acute cor acute cor pulmonale pulmonale Right Right Disease Active 2019 Univers shoulder shoulder 8-23 ity of tendonitis tendonitis [place] 00 [place] Pulmonary Pulmonary Disease Active Uni vers embolism embolism 8-11 ity of 00:00: [place] 00 Medical Branch Pneumonia Pneumonia Disease Active Uni vers 8-11 ity of 00:00: [place] [...] heart heart 00 Medical failure failure 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 [facility] Disease Active Uni vers (current) (current) 8-17 ity of use of use of 00:00: [place] systemic systemic 00 Medica l steroids steroids Branch Allergies, Adverse Reactions, Alerts Allergy Allergy Status Severity Reaction(s) Onset Inactive Treating Comm ents Source Name Type Date Date Clinician NO KNOWN Drug Active Univers ALLERGIE Class ity of S [facility] NO KNOWN Allergy Active [facility] ALLERGIE S Social History Social Habit Start Date Stop Date Quantity Comments Source Alcohol intake 2022-03-19 2022-03-19 0 /d [facility] 00:00:00 00:00:00 Medical Branch Exposure to 2022-03-08 2022-03-18 Not sure [facility] SARS-CoV-2 (event) 00:00:00 08:20:00 Medica l Branch Education 2019-05-01 2019-05-01 21 [facility] 00:00:00 00:00:00 Medical Branch History [facility] 2019-05-01 2019-05-01 3 [facility] Financial 00:00:00 00:00:00 Medical Branch History [facility] Food 2019-05-01 2019-05-01 1 Univers ity of [place] Worry 00:00:00 00:00:00 Medical Branch History [facility] Food 2019-05-01 2019-05-01 1 Univers ity [facility] Scarcity 00:00:00 00:00:00 Medical Branch History [facility] 2019-05-01 2019-05-01 2 [facility] Transport Med 00:00:00 00:00:00 Medical Bra nch History [facility] 2019-05-01 2019-05-01 2 [facility] Transport Non-Med 00:00:00 00:00:00 Medical Branch Tobacco use and 2015-07-27 2015-07-27 Never used [facility] exposure 00:00:00 00:00:00 Medical Branch Sex Ass[birth year] At [birth year] [facility] 00:00:00 00:00:00 Medical Branch Smoking Status Start Date Stop Date Source Never smoker [facility] Medical Branch Medications Ordered Filled Start Stop Current Ordering Indication Dosage Frequency Signature Comments Components Source Medication Medication Date Date Medication? Clinician (SIG) Name Name HYDROXYCHLO Yes [id number] TAKE 1 Univers ROQUINE 200 6-01 TABLET BY ity of mg tablet 00:00: MOUTH [place] DAILY Medical Branch HYDROXYCHLO Yes [id number] TAKE 1 Univers ROQUINE 200 6-01 TABLET BY ity of mg tablet 00:00: MOUTH [place] DAILY Medical Branch MIRTAZAPINE Yes [id number] 15mg TAKE 1 Univers 15 mg 6-01 TABLET BY ity of tablet 00:00: MOUTH AT [place] 00 BEDTIME Medical Branch HYDROXYCHLO Yes [id number] TAKE 1 Univers ROQUINE 200 6-01 TABLET BY ity of mg tablet 00:00: MOUTH [place] 00 DAILY Medical Branch MIRTAZAPINE 2021-0 Yes [id number] 15mg TAKE 1 Univers 15 mg 6-01 TABLET BY ity of tablet 00:00: MOUTH AT [place] 00 BEDTIME Medical Branch FAMOTIDINE 2021-0 Yes [id number] TAKE 1 Univers 40 mg 6-01 TABLET BY ity of tablet 00:00: MOUTH [place] 00 TWICE Medical DAILY Branch aspirin 81 2021-0 Yes 81mg Take 81 mg U nivers mg EC 5-23 by mouth ity of tablet 11:15: daily. [address] Branch Cholecalcif 0 Yes Take by Un [place], 5-23 mouth. ity of Vitamin D3, 11:15: [place] (VITAMIN 40 Medical D3) 5,000 Branch unit tablet sevelamer 0 Yes 1{tbl} Take 1 Univ ers 800 mg 5-23 tablet by ity of tablet 11:15: mouth [address] [place] [address] (three) Medical times [place] daily. aspirin 81 2021-0 Yes 81mg Take 81 mg U nivers mg EC 5-23 by mouth ity of tablet 11:15: daily. [address] Branch Cholecalcif 2021-0 Yes Take by Un [place], 5-23 mouth. ity of Vitamin D3, 11:15: [place] (VITAMIN 40 Medical D3) 5,000 Branch unit tablet sevelamer 2021-0 Yes 1{tbl} Take 1 Univ ers 800 mg 5-23 tablet by ity of tablet 11:15: mouth 3 [place] [address] (three) Medical times [place] daily. aspirin 81 2021-0 Yes 81mg Take 81 mg U nivers mg EC 5-23 by mouth ity of tablet 11:15: daily. [address] Branch Cholecalcif 2021-0 Yes Take by Un [place], 5-23 mouth. ity of Vitamin D3, 11:15: [place] (VITAMIN 40 Medical D3) 5,000 Branch unit tablet sevelamer 2021-0 Yes 1{tbl} Take 1 Univ ers 800 mg 5-23 tablet by ity of tablet 11:15: mouth 3 [place] [address] (three) Medical times [place] daily. aspirin 81 2021-0 Yes 81mg Take 81 mg U nivers mg EC 5-23 by mouth ity of tablet 11:15: daily. [place] 40 Medical Branch Cholecalcif Yes Take by Un [place], 5-23 mouth. ity of Vitamin D3, 11:15: [place] (VITAMIN 40 Medical D3) 5,000 Branch unit tablet sevelamer Yes 1{tbl} Take 1 Univ ers 800 mg 5-23 tablet by ity of tablet 11:15: mouth 3 [place] 40 (three) Medical times Branch daily. aspirin 81 0 Yes 81mg Take 81 mg U nivers mg EC 5-23 by mouth ity of tablet 11:15: daily. [place] 40 Medical Branch Cholecalcif 0 Yes Take by Un [place], 5-23 mouth. ity of Vitamin D3, 11:15: [place] (VITAMIN 40 Medical D3) 5,000 Branch unit tablet sevelamer Yes 1{tbl} Take 1 Univ ers 800 mg 5-23 tablet by ity of tablet 11:15: mouth 3 [place] 40 (three) Medical times Branch daily. aspirin 81 Yes 81mg Take 81 mg U nivers mg EC 5-20 by mouth ity of tablet 09:06: daily. [place] 10 Medical Branch sevelamer Yes 1{tbl} Take 1 Univ ers 800 mg 5-20 tablet by ity of tablet 08:44: mouth 3 [place] 19 (three) Medical times Branch daily. RAMIPRIL 10 Yes TAKE 1 Univ ers mg capsule 5-02 CAPSULE BY ity of 00:00: MOUTH [place] DAILY Medical Branch RAMIPRIL 10 Yes TAKE 1 Univ ers mg capsule 5-02 CAPSULE BY ity of 00:00: MOUTH [place] DAILY Medical Branch RAMIPRIL 10 0 Yes TAKE 1 Univ ers mg capsule 5-02 CAPSULE BY ity of 00:00: MOUTH DAILY Medical Branch RAMIPRIL 10 0 Yes TAKE 1 Univ ers mg capsule 5-02 CAPSULE BY ity of 00:00: MOUTH DAILY Medical Branch RAMIPRIL 10 0 Yes TAKE 1 Univ ers mg capsule 5-02 CAPSULE BY ity of 00:00: MOUTH [place] DAILY Medical Branch RAMIPRIL 10 Yes TAKE 1 Univ ers mg capsule 5-02 CAPSULE BY ity of 00:00: MOUTH [place] DAILY Medical Branch AZATHIOPRIN 2022-0 Yes [id number] 50mg TAKE 1 Univers E 50 mg 4-29 TABLET BY ity of tablet 00:00: DAILY Medical Branch AZATHIOPRIN 2-0 Yes [id number] 50mg TAKE 1 Univers E 50 mg 4-29 TABLET BY ity of tablet 00:00: DAILY Medical Branch AZATHIOPRIN 2-0 Yes [id number] 50mg TAKE 1 Univers E 50 mg 4-29 TABLET BY ity of tablet 00:00: DAILY Medical Branch AZATHIOPRIN 2-0 Yes [id number] 50mg TAKE 1 Univers E 50 mg 4-29 TABLET BY ity of tablet 00:00: DAILY Medical Branch AZATHIOPRIN 2-0 Yes [id number] 50mg TAKE 1 Univers E 50 mg 4-29 TABLET BY ity of tablet 00:00: DAILY Medical Branch AZATHIOPRIN 2-0 Yes [id number] 50mg TAKE 1 Univers E 50 mg 4-29 TABLET BY ity of tablet 00:00: DAILY Medical Branch carvediloL 2-0 Yes 25mg Take 1 Unive rs 25 mg 4-05 tablet by ity of tablet 00:00: (two) Medical times Branch daily with meals. carvediloL 2-0 Yes 25mg Take 1 Unive rs 25 mg 4-05 tablet by ity of tablet 00:00: [facility] (two) Medical times Branch daily with meals. carvediloL 2-0 Yes 25mg Take 1 Unive rs 25 mg 4-05 tablet by ity of tablet 00:00: [facility] (two) Medical times Branch daily with meals. carvediloL 2022-0 Yes 25mg Take 1 Unive rs 25 mg 4-05 tablet by ity of tablet 00:00: [facility] (two) Medical times Branch daily with meals. carvediloL 2022-0 Yes 25mg Take 1 Unive rs 25 mg 4-05 tablet by ity of tablet 00:00: [facility] (two) Medical times Branch daily with meals. carvediloL 2022-0 Yes 25mg Take 1 Unive rs 25 mg 4-05 tablet by ity of tablet 00:00: [facility] (two) Medical times Branch daily with meals. potassium 2022-0 Yes 10meq Take 10 Univ ers chloride 10 1-29 mEq by ity of mEq CR 00:00: mouth [place] tablet 00 daily. Medical Branch potassium 2021-0 Yes 10meq Take 10 Univ ers chloride 10 1-29 mEq by ity of mEq CR 00:00: mouth [place] tablet 00 daily. Medical Branch potassium 2021-0 Yes 10meq Take 10 Univ ers chloride 10 1-29 mEq by ity of mEq CR 00:00: mouth [place] tablet 00 daily. Medical Branch potassium 0 Yes 10meq Take 10 Univ ers chloride 10 1-29 mEq by ity of mEq CR 00:00: mouth [place] tablet 00 daily. Medical Branch potassium 0 Yes 10meq Take 10 Univ ers chloride 10 1-29 mEq by ity of mEq CR 00:00: mouth [place] tablet 00 daily. Medical Branch potassium 0 Yes 10meq Take 10 Univ ers chloride 10 1-29 mEq by ity of mEq CR 00:00: mouth [place] tablet 00 daily. Medical Branch aspirin 81 0 Yes 81mg Take 81 mg U nivers mg EC 27 by mouth ity of tablet 10:38: daily. [address] Branch Cholecalcif 0 Yes Take by Un [place], 1-27 mouth. ity of Vitamin D3, 10:38: [place] (VITAMIN 58 Medical D3) 5,000 Branch unit tablet Cholecalcif Yes Take by Un [place], - mouth. ity of Vitamin D3, 10:38: [place] (VITAMIN 58 Medical D3) 5,000 Branch unit tablet lanthanum Yes CHEW AND Univ ers 500 mg 1-25 SWALLOW 1 ity of chewable 00:00: TABLET BY [place] tablet 00 MOUTH Medical BEFORE Branch MEALS lanthanum 0 Yes CHEW AND Univ ers 500 mg 1-25 SWALLOW 1 ity of chewable 00:00: TABLET BY [place] tablet 00 MOUTH Medical BEFORE Branch MEALS lanthanum 2021-0 Yes CHEW AND Univ ers 500 mg 1-25 SWALLOW 1 ity of chewable 00:00: TABLET BY [place] tablet 00 MOUTH Medical BEFORE Branch MEALS lanthanum 0 Yes CHEW AND Univ ers 500 mg 1-25 SWALLOW 1 ity of chewable 00:00: TABLET BY [place] tablet 00 MOUTH Medical BEFORE Branch MEALS lanthanum 2022-0 Yes CHEW AND Univ ers 500 mg 1-25 SWALLOW 1 ity of chewable 00:00: TABLET BY [place] tablet 00 MOUTH Medical BEFORE Branch MEALS lanthanum 0 Yes CHEW AND Univ ers 500 mg 1-25 SWALLOW 1 ity of chewable 00:00: TABLET BY [place] tablet 00 MOUTH Medical BEFORE Branch MEALS FUROSEMIDE 0 Yes [id number] TAKE 1 AND Univers 40 mg 1-16 1/2 ity of tablet 00:00: TABLETS BY [place] [address] MOUTH Medical EVERY Branch MORNING AND EVERY EVENING FUROSEMIDE 0 Yes [id number] TAKE 1 AND Univers 40 mg 1-16 1/2 ity of tablet 00:00: TABLETS BY [address] EVERY Branch MORNING AND EVERY EVENING FUROSEMIDE Yes [id number] TAKE 1 AND Univers 40 mg 1-16 1/2 ity of tablet 00:00: TABLETS BY [address] EVERY Branch MORNING AND EVERY EVENING FUROSEMIDE 0 Yes [id number] TAKE 1 AND Univers 40 mg 1-16 1/2 ity of tablet 00:00: TABLETS BY [address] EVERY Branch MORNING AND EVERY EVENING FUROSEMIDE Yes [id number] TAKE 1 AND Univers 40 mg 1-16 1/2 ity of tablet 00:00: TABLETS BY [address] EVERY Branch MORNING AND EVERY EVENING FUROSEMIDE Yes [id number] TAKE 1 AND Univers 40 mg 1-16 1/2 ity of tablet 00:00: TABLETS BY [address] EVERY Branch MORNING AND EVERY EVENING NIFEdipine 2020-10 Yes 30mg Take 1 Unive rs ER 30 mg 2-29 tablet by ity of tablet 00:00: [facility] 00 daily. Medical Branch NIFEdipine 2020-10 Yes 30mg Take 1 Unive rs ER 30 mg 2-29 tablet by ity of tablet 00:00: mouth [place] 00 daily. [facility] Branch NIFEdipine 2020-10 Yes 30mg Take 1 Unive rs ER 30 mg 2-29 tablet by ity of tablet 00:00: [facility] 00 daily. [facility] Branch NIFEdipine 2020-10 Yes 30mg Take 1 Unive rs ER 30 mg 2-29 tablet by ity of tablet 00:00: mouth [place] 00 daily. [facility] Branch NIFEdipine 2020-10 Yes 30mg Take 1 Unive rs ER 30 mg 2-29 tablet by ity of tablet 00:00: mouth [place] 00 daily. [facility] Branch NIFEdipine 2020-10 Yes 30mg Take 1 Unive rs ER 30 mg 2-29 tablet by ity of tablet 00:00: mouth [place] 00 daily. Medical Branch NIFEdipine 2020-10 Yes 30mg Take 1 Unive rs ER 30 mg 2-29 tablet by ity of tablet 00:00: mouth [place] 00 daily. Medical Branch FUROSEMIDE 2020-10- No [id number] TAKE 1 AND Univers 40 mg 11-27 ity of tablet 00:00: 00:00 TABLETS BY [place] 00 :00 [facility] EVERY Branch MORNING AND EVERY EVENING hydrOXYchlo 2020-10 Yes [id number] 200mg Take 1 Univers roQUINE 200 1-17 tablet by ity of mg tablet 00:00: mouth [place] 00 daily. [facility] call clinic to schedule an appt soon. hydrOXYchlo 2020-10 Yes [id number] 200mg Take 1 Univers roQUINE 200 1-17 tablet by ity of mg tablet 00:00: mouth [place] 00 daily. [facility] call clinic to schedule an appt soon. hydrOXYchlo 2020-10 Yes [id number] 200mg Take 1 Univers roQUINE 200 1-17 tablet by ity of mg tablet 00:00: mouth [place] 00 daily. [facility] call clinic to schedule an appt soon. hydrOXYchlo 2020-10 Yes [id number] 200mg Take 1 Univers roQUINE 200 1-17 tablet by ity of mg tablet 00:00: mouth [place] 00 daily. [facility] call clinic to schedule an appt soon. hydrOXYchlo 2020-10- No [id number] 200mg Take 1 Univers roQUINE 200 1-17 03-27 tablet by it y of mg tablet 00:00: 00:00 mouth [place] 00 :00 daily. [facility] call clinic to schedule an appt soon. MIRTAZAPINE Yes [id number] 15mg TAKE 1 Univers 15 mg 9-20 TABLET BY ity of tablet 00:00: MOUTH AT [place] 00 BEDTIME [facility] MIRTAZAPINE 2020- Yes [id number] 15mg TAKE 1 Univers 15 mg 9-20 TABLET BY ity of tablet 00:00: MOUTH AT [place] 00 BEDTIME [facility] MIRTAZAPINE Yes [id number] 15mg TAKE 1 Univers 15 mg 9-20 TABLET BY ity of tablet 00:00: MOUTH AT [place] 00 BEDTIME Medical Branch MIRTAZAPINE 0 Yes [id number] 15mg TAKE 1 Univers 15 mg 9-20 TABLET BY ity of tablet 00:00: MOUTH AT [place] 00 BEDTIME Medical Branch MIRTAZAPINE 0 Yes [id number] 15mg TAKE 1 Univers 15 mg 9-20 TABLET BY ity of tablet 00:00: MOUTH AT [place] 00 BEDTIME Medical Branch MIRTAZAPINE 2020-0 2021- No [id number] 15mg TAKE 1 Univers 15 mg 9-20 - TABLET BY ity of tablet 00:00: 00:00 MOUTH AT [place] 00 :00 BEDTIME Medical Branch azaTHIOprin 2020-0 2021- No [id number] 50mg Take 1 Univers e 50 mg -13 02- tablet by ity of tablet 00:00: 00:00 mouth [place] 00 :00 daily. Medical Branch ramipriL 10 2020-2021- No 10mg Take 10 mg Univers mg capsule 07-11 by mouth ity of 00:00: 00:00 daily. [place] 00 :00 Medical Branch ferrous 2020-0 2021- No [id number] 325mg Take 1 U nivers sulfate 05-17-15 tablet by ity of (IRON, 00:00: 00:00 mouth 3 [place] FERROUS 00 :00 (three) Medical SULFATE,) times Branch 325 mg (65 daily with mg iron) meals. tablet predniSONE Yes [id number] 2mg Take 2 Univers 1 mg tablet 3-12 tablets by it y of 00:00: mouth [place] 00 daily. Medical Branch predniSONE Yes [id number] 2mg Take 2 Univers 1 mg tablet 3-12 tablets by it y of 00:00: mouth [place] 00 daily. Medical Branch predniSONE 2020- Yes [id number] 2mg Take 2 Univers 1 mg tablet 3-12 tablets by it y of 00:00: mouth [place] 00 daily. Medical Branch predniSONE 2020-0 Yes [id number] 2mg Take 2 Univers 1 mg tablet 3-12 tablets by it y of 00:00: mouth [place] 00 daily. Medical Branch predniSONE 2020- Yes [id number] 2mg Take 2 Univers 1 mg tablet 3-12 tablets by it y of 00:00: mouth [place] 00 daily. Medical Branch predniSONE 0 Yes [id number] 2mg Take 2 Univers 1 mg tablet 3-12 tablets by it y of 00:00: mouth [place] 00 daily. Medical Branch predniSONE Yes [id number] 2mg Take 2 Univers 1 mg tablet 3-12 tablets by it y of 00:00: mouth [place] 00 daily. Medical Branch loteprednol Yes SHAKE Unive rs 0.5 % 3-03 LIQUID AND ity of ophthalmic 00:00: INSTILL 1 [place] suspension 00 DROP IN Medica l drops BOTH EYES Branch TWICE DAILY loteprednol Yes SHAKE Unive rs 0.5 % 3-03 LIQUID AND ity of ophthalmic 00:00: INSTILL 1 [place] suspension 00 DROP IN Medica l drops BOTH EYES Branch TWICE DAILY loteprednol Yes SHAKE Unive rs 0.5 % 3-03 LIQUID AND ity of ophthalmic 00:00: INSTILL 1 [place] suspension 00 DROP IN Medica l drops BOTH EYES Branch TWICE DAILY loteprednol Yes SHAKE Unive rs 0.5 % 3-03 LIQUID AND ity of ophthalmic 00:00: INSTILL 1 [place] suspension 00 DROP IN Medica l drops BOTH EYES Branch TWICE DAILY loteprednol Yes SHAKE Unive rs 0.5 % 3-03 LIQUID AND ity of ophthalmic 00:00: INSTILL 1 [place] suspension 00 DROP IN Medica l drops BOTH EYES Branch TWICE DAILY loteprednol Yes SHAKE Unive rs 0.5 % 3-03 LIQUID AND ity of ophthalmic 00:00: INSTILL 1 [place] suspension 00 DROP IN Medica l drops BOTH EYES Branch TWICE DAILY loteprednol Yes SHAKE Unive rs 0.5 % 3-03 LIQUID AND ity of ophthalmic 00:00: INSTILL 1 [place] suspension 00 DROP IN Medica l drops BOTH EYES Branch TWICE DAILY zolpidem 5 2021- No Univer s mg tablet 12-27 03-15 ity of 00:00: 00:00 [place] 00 :00 Medical Branch NIFEdipine 2020- No 60mg Take 60 mg Univers ER 60 mg 3-01 12-29 by mouth ity of tablet 00:00: 00:00 daily. [place] 00 [facility] Branch dronabinoL 2- No [id number] 2.5mg Take 1 Univers (MARINOL) 11-3015 capsule by ity of 2.5 mg 00:00: 00:00 mouth 2 [place] capsule 00 :00 (two) Medical times [place] daily. VELPHORO 0 Yes Univers 500 mg Chew -22 ity of 00:00: Medical Branch VELPHORO 2020-0 Yes Univers 500 mg Chew -22 ity of 00:00: Medical Branch VELPHORO 2020-0 Yes Univers 500 mg Chew -22 ity of 00:00: Medical Branch VELPHORO 2020-0 Yes Univers 500 mg Chew -22 ity of 00:00: Medical Branch VELPHORO 2020-0 Yes Univers 500 mg Chew -22 ity of 00:00: Medical Branch VELPHORO 2020-0 Yes Univers 500 mg Chew -22 ity of 00:00: Medical Branch VELPHORO 2020-0 Yes Univers 500 mg Chew -22 ity of 00:00: [facility] Branch carvediloL 2019-10- No 25mg Take 1 Univ ers 25 mg 11-08-05 tablet by ity of tablet 00:00: 00:00 mouth 2 [place] 00 :00 (two) Medical times [place] daily with meals. omeprazole 2- No [id number] 20mg Take 1 Univers (PRILOSEC 12-0215 tablet by ity of OTC) 20 mg 00:00: 00:00 mouth [place] tablet 00 :00 daily. [facility] Branch Immunizations Ordered Immunization Filled Immunization Date Status Commen ts Source Name Name Influenza Virus 2020-09-05 Completed Universit y of Vaccine 00:00:00 [facility] Influenza Virus 2020-09-05 Completed Universit y of Vaccine 00:00:00 [facility] Influenza Virus 2020-09-05 Completed Universit y of Vaccine 00:00:00 [facility] Influenza Virus 2020-09-05 Completed Universit y of Vaccine 00:00:00 [facility] Influenza Virus 2020-09-05 Completed Universit y of Vaccine 00:00:00 [facility] Influenza Virus 2020-09-05 Completed Universit y of Vaccine 00:00:00 [facility] Influenza Virus 2020-09-05 Completed Universit y of Vaccine 00:00:00 [facility] Pneumococcal 13 2019-05-11 Completed Universit y of Conjugate, PCV13 00:00:00 [facility] dical (Prevnar 13) Branch Pneumococcal 13 2019-05-11 Completed Universit y of Conjugate, PCV13 00:00:00 [place] Me dical (Prevnar 13) Branch Pneumococcal 13 2019-05-11 Completed Universit y of Conjugate, PCV13 00:00:00 [place] Me dical (Prevnar 13) Branch Pneumococcal 13 2019-05-11 Completed Universit y of Conjugate, PCV13 00:00:00 [place] Me dical (Prevnar 13) Branch Pneumococcal 13 2019-05-11 Completed Universit y of Conjugate, PCV13 00:00:00 [facility] dical (Prevnar 13) Branch Pneumococcal 13 2019-05-11 Completed Universit y of Conjugate, PCV13 00:00:00 [facility] dical (Prevnar 13) Branch Pneumococcal 13 2019-05-11 Completed Universit y of Conjugate, PCV13 00:00:00 [facility] dical (Prevnar 13) Branch Meningococcal 2018-03-31 Completed University of Polysaccharide 00:00:00 [place] Medi lai (groups A, C, Y and Branc h W-135) conjugate vaccine (MCV4P) Meningococcal 2018-03-31 Completed University of Polysaccharide 00:00:00 [place] Medi lai (groups A, C, Y and Branc h W-135) conjugate vaccine (MCV4P) Meningococcal 2018-03-31 Completed University of Polysaccharide 00:00:00 [place] Medi lai (groups A, C, Y and Branc h W-135) conjugate vaccine (MCV4P) Meningococcal 2018-03-31 Completed [facility] of Polysaccharide 00:00:00 [place] [facility] (groups A, C, Y and Branc h W-135) conjugate vaccine (MCV4P) Meningococcal 2018-03-31 Completed University of Polysaccharide 00:00:00 [place] [facility] (groups A, C, Y and Branc h W-135) conjugate vaccine (MCV4P) Meningococcal 2018-03-31 Completed University of Polysaccharide 00:00:00 [place] [facility] (groups A, C, Y and Branc h W-135) conjugate vaccine (MCV4P) Meningococcal 2018-03-31 Completed University of Polysaccharide 00:00:00 [facility] lai (groups A, C, Y and Branc h W-135) conjugate vaccine (MCV4P) Hep B, Adol or Pedi 2017-07-21 Completed Unive rsity of Dosage 00:00:00 [facility] Hep B, Adol or Pedi 2017-07-21 Completed Unive rsity of Dosage 00:00:00 [facility] Hep B, Adol or Pedi 2017-07-21 Completed Unive rsity of Dosage 00:00:00 [facility] Hep B, Adol or Pedi 2017-07-21 Completed Unive rsity of Dosage 00:00:00 [facility] Hep B, Adol or Pedi 2017-07-21 Completed Unive rsity of Dosage 00:00:00 [facility] Hep B, Adol or Pedi 2017-07-21 Completed Unive rsity of Dosage 00:00:00 [facility] Hep B, Adol or Pedi 2017-07-21 Completed Unive rsity of Dosage 00:00:00 [facility] Influenza Virus 2017-07-16 Completed Universit y of Vaccine 00:00:00 [facility] Influenza Virus 2017-07-16 Completed Universit y of Vaccine 00:00:00 [facility] Influenza Virus 2017-07-16 Completed Universit y of Vaccine 00:00:00 [facility] Influenza Virus 2017-07-16 Completed Universit y of Vaccine 00:00:00 [facility] Influenza Virus 2017-07-16 Completed Universit y of Vaccine 00:00:00 [facility] Influenza Virus 2017-07-16 Completed Universit y of Vaccine 00:00:00 [facility] Influenza Virus 2017-07-16 Completed Universit y of Vaccine 00:00:00 [facility] Hep B, Adol or Pedi 2017-03-26 Completed Unive rsity of Dosage 00:00:00 [facility] Hep B, Adol or Pedi 2017-03-26 Completed Unive rsity of Dosage 00:00:00 [facility] Hep B, Adol or Pedi 2017-03-26 Completed Unive rsity of Dosage 00:00:00 [facility] Hep B, Adol or Pedi 2017-03-26 Completed Unive rsity of Dosage 00:00:00 [facility] Hep B, Adol or Pedi 2017-03-26 Completed Unive rsity of Dosage 00:00:00 [facility] Hep B, Adol or Pedi 2017-03-26 Completed Unive rsity of Dosage 00:00:00 [facility] Hep B, Adol or Pedi 2017-03-26 Completed Unive rsity of Dosage 00:00:00 [facility] PPD (TB) 2016-11-29 Completed University of 00:00:00 [facility] PPD (TB) 2016-11-29 Completed University of 00:00:00 [facility] PPD (TB) 2016-11-29 Completed University of 00:00:00 [facility] PPD (TB) 2016-11-29 Completed University of 00:00:00 [facility] PPD (TB) 2016-11-29 Completed University of 00:00:00 [facility] PPD (TB) 2016-11-29 Completed University of 00:00:00 [facility] PPD (TB) 2016-11-29 Completed University of 00:00:00 [facility] Influenza Virus 2016-09-19 Completed Universit y of Vaccine Quad IM 3+ 00:00:00 [facility] Influenza Virus 2016-09-19 Completed Universit y of Vaccine Quad IM 3+ 00:00:00 [facility] Influenza Virus 2016-09-19 Completed Universit y of Vaccine Quad IM 3+ 00:00:00 [facility] Influenza Virus 2016-09-19 Completed Universit y of Vaccine Quad IM 3+ 00:00:00 [facility] Influenza Virus 2016-09-19 Completed Universit y of Vaccine Quad IM 3+ 00:00:00 [facility] Influenza Virus 2016-09-19 Completed Universit y of Vaccine Quad IM 3+ 00:00:00 [facility] Influenza Virus 2016-09-19 Completed Universit y of Vaccine Quad IM 3+ 00:00:00 [facility] Influenza Virus 2016 Completed Universit y of Vaccine 00:00:00 [facility] Pneumococcal 2016 Completed University o f Polysaccharide, 00:00:00 [facility] ical PPSV23 (PNEUMOVAX) [place] Influenza Virus 2016 Completed Universit y of Vaccine 00:00:00 [facility] Pneumococcal 2016 Completed University o f Polysaccharide, 00:00:00 [place] [facility] PPSV23 (PNEUMOVAX) Branch Influenza Virus 2016 Completed Universit y of Vaccine 00:00:00 [facility] Pneumococcal 2016 Completed University o f Polysaccharide, 00:00:00 [place] [facility] PPSV23 (PNEUMOVAX) Branch Influenza Virus 2016 Completed Universit y of Vaccine 00:00:00 [facility] Pneumococcal 2016 Completed University o f Polysaccharide, 00:00:00 [place] [facility] PPSV23 (PNEUMOVAX) Branch Influenza Virus 2016 Completed Universit y of Vaccine 00:00:00 [facility] Pneumococcal 2016 Completed University o f Polysaccharide, 00:00:00 [place] [facility] PPSV23 (PNEUMOVAX) Branch Influenza Virus 2016 Completed Universit y of Vaccine 00:00:00 [facility] Pneumococcal 2016 Completed University o f Polysaccharide, 00:00:00 [place] [facility] PPSV23 (PNEUMOVAX) Branch Influenza Virus 2016 Completed Universit y of Vaccine 00:00:00 [facility] Pneumococcal 2016 Completed University o f Polysaccharide, 00:00:00 [place] [facility] PPSV23 (PNEUMOVAX) Branch Influenza Virus 2015-08-28 Completed Universit y of Vaccine Quad IM 3+ 00:00:00 [facility] Influenza Virus 2015-08-28 Completed Universit y of Vaccine Quad IM 3+ 00:00:00 [facility] Influenza Virus 2015-08-28 Completed Universit y of Vaccine Quad IM 3+ 00:00:00 [facility] Influenza Virus 2015-08-28 Completed Universit y of Vaccine Quad IM 3+ 00:00:00 [facility] Influenza Virus 2015-08-28 Completed Universit y of Vaccine Quad IM 3+ 00:00:00 [facility] Influenza Virus 2015-08-28 Completed Universit y of Vaccine Quad IM 3+ 00:00:00 [facility] Influenza Virus 2015-08-28 Completed Universit y of Vaccine Quad IM 3+ 00:00:00 [facility] Pneumococcal 2015-06-08 Completed University o f Polysaccharide, 00:00:00 [place] [facility] PPSV23 (PNEUMOVAX) Branch Pneumococcal 2015-06-08 Completed University o f Polysaccharide, 00:00:00 [place] [facility] PPSV23 (PNEUMOVAX) Branch Pneumococcal 2015-06-08 Completed University o f Polysaccharide, 00:00:00 [place] [facility] PPSV23 (PNEUMOVAX) Branch Pneumococcal 2015-06-08 Completed University o f Polysaccharide, 00:00:00 [place] [facility] PPSV23 (PNEUMOVAX) Branch Pneumococcal 2015-06-08 Completed University o f Polysaccharide, 00:00:00 [place] [facility] PPSV23 (PNEUMOVAX) Branch Pneumococcal 2015-06-08 Completed University o f Polysaccharide, 00:00:00 [place] [facility] PPSV23 (PNEUMOVAX) Branch Pneumococcal 2015-06-08 Completed University o f Polysaccharide, 00:00:00 [place] [facility] PPSV23 (PNEUMOVAX) Branch Influenza Virus 2014-08-04 Completed Universit y of Vaccine (3+ yrs) 00:00:00 [facility] Influenza Virus 2014-08-04 Completed Universit y of Vaccine (3+ yrs) 00:00:00 [facility] Influenza Virus 2014-08-04 Completed Universit y of Vaccine (3+ yrs) 00:00:00 [facility] Influenza Virus 2014-08-04 Completed Universit y of Vaccine (3+ yrs) 00:00:00 [facility] Influenza Virus 2014-08-04 Completed Universit y of Vaccine (3+ yrs) 00:00:00 [facility] Influenza Virus 2014-08-04 Completed Universit y of Vaccine (3+ yrs) 00:00:00 [facility] Influenza Virus 2014-08-04 Completed Universit y of Vaccine (3+ yrs) 00:00:00 [facility] Influenza Virus 2013-08-06 Completed Universit y of Vaccine (3+ yrs) 00:00:00 [facility] Influenza Virus 2013-08-06 Completed Universit y of Vaccine (3+ yrs) 00:00:00 [facility] Influenza Virus 2013-08-06 Completed Universit y of Vaccine (3+ yrs) 00:00:00 [facility] Influenza Virus 2013-08-06 Completed Universit y of Vaccine (3+ yrs) 00:00:00 [facility] Influenza Virus 2013-08-06 Completed Universit y of Vaccine (3+ yrs) 00:00:00 [facility] Influenza Virus 2013-08-06 Completed Universit y of Vaccine (3+ yrs) 00:00:00 [facility] Influenza Virus 2013-08-06 Completed Universit y of Vaccine (3+ yrs) 00:00:00 [facility] Influenza Virus 2012-09-02 Completed Universit y of Vaccine (3+ yrs) 00:00:00 [facility] Influenza Virus 2012-09-02 Completed Universit y of Vaccine (3+ yrs) 00:00:00 [facility] Influenza Virus 2012-09-02 Completed Universit y of Vaccine (3+ yrs) 00:00:00 [facility] Influenza Virus 2012-09-02 Completed Universit y of Vaccine (3+ yrs) 00:00:00 [facility] Influenza Virus 2012-09-02 Completed Universit y of Vaccine (3+ yrs) 00:00:00 [facility] Influenza Virus 2012-09-02 Completed Universit y of Vaccine (3+ yrs) 00:00:00 [facility] Influenza Virus 2012-09-02 Completed Universit y of Vaccine (3+ yrs) 00:00:00 [facility] HPV 2012-02-12 Completed University of 00:00:00 [facility] HPV 2012-02-12 Completed University of 00:00:00 [facility] HPV 2012-02-12 Completed University of 00:00:00 [facility] HPV 2012-02-12 Completed University of 00:00:00 [facility] HPV 2012-02-12 Completed University of 00:00:00 [facility] HPV 2012-02-12 Completed University of 00:00:00 [facility] HPV 2012-02-12 Completed University of 00:00:00 [facility] Influenza Virus 2011-08-13 Completed Universit y of Vaccine (3+ yrs) 00:00:00 [facility] Influenza Virus 2011-08-13 Completed Universit y of Vaccine (3+ yrs) 00:00:00 [facility] Influenza Virus 2011-08-13 Completed Universit y of Vaccine (3+ yrs) 00:00:00 [facility] Influenza Virus 2011-08-13 Completed Universit y of Vaccine (3+ yrs) 00:00:00 [facility] Influenza Virus 2011-08-13 Completed Universit y of Vaccine (3+ yrs) 00:00:00 [facility] Influenza Virus 2011-08-13 Completed Universit y of Vaccine (3+ yrs) 00:00:00 [facility] 2011-08-13 Completed Universit y of Vaccine (3+ yrs) 00:00:00 [facility] Vital Signs Vital Name Observation Time Observation Value Comments Source Systolic blood 2022-03-18 16:00:00 138 mm[Hg] Univer sity of pressure [facility] Diastolic blood 2022-03-18 16:00:00 93 mm[Hg] Unive rsity of pressure [facility] Heart rate 2022-03-18 16:00:00 69 /min [facility] Respiratory rate 2022-03-18 16:00:00 10 /min Univ ersity of [facility] Oxygen saturation in 2022-03-18 16:00:00 100 /min University of Arterial blood by [email or web address] Pulse oximetry Branch Body temperature 2022-03-18 15:32:00 36 Maria Dolores Univ ersity of [place] [facility] [place] Body height 2022-03-18 14:12:00 157.5 cm [facility] Body weight 2022-03-18 14:12:00 52.164 kg [facility] BMI 2022-03-18 14:12:00 21.03 kg/m2 [facility] Systolic blood 2022-03-18 14:12:00 135 mm[Hg] Univer [facility]ity of pressure [facility] [place] Diastolic blood 2022-03-18 14:12:00 94 mm[Hg] Unive rsity of pressure [facility] Heart rate 2022-03-18 14:12:00 94 /min [facility] Body temperature 2022-03-18 14:12:00 36.33 Maria Dolores Univ ersity of [facility] Respiratory rate 2022-03-18 14:12:00 16 /min Univ ersity of [facility] [place] Body height 2022-03-18 14:12:00 157.5 cm [facility] Body weight 2022-03-18 14:12:00 52.164 kg [facility] BMI 2022-03-18 14:12:00 21.03 kg/m2 [facility] Oxygen saturation in 2022-03-18 14:12:00 99 /min University of Arterial blood by [facility] Pulse oximetry Branch Systolic blood 2021-10-24 20:31:00 123 mm[Hg] Univer sity of pressure [facility] Diastolic blood 2021-10-24 20:31:00 82 mm[Hg] Unive rsity of pressure [facility] Heart rate 2021-10-24 20:31:00 77 /min [facility] Respiratory rate 2021-10-24 20:31:00 21 /min Univ ersity of [facility] Body height 2021-10-24 20:31:00 157.5 cm Universi ty [facility] Body weight 2021-10-24 20:31:00 [facility] 2021-10-24 20:31:00 20.92 kg/m2 [facility] Oxygen saturation in 2021-10-24 20:31:00 100 /min University of Arterial blood by [facility] Pulse oximetry Branch Procedures Procedure Date / Time Performing Source Performed Clinician ESOPHAGOGASTRODUODENOSCOPY 2022-03-18 Ronald Olivareze rsity of 15:02:00 [facility] EGD (ENDO) 2022-03-18 [facility] 14:49:03 [facility] EGD (ENDO) 2022-03-18 [facility] 14:49:03 [facility] POTASSIUM SERUM 2022-03-18 [facility] 14:37:00 [facility] POTASSIUM SERUM 2022-03-18 [facility] of 14:37:00 [facility] CONSENT/REFUSAL FOR DIAGNOSIS AND 2022-03-18 Doctor [facility] TREATMENT 13:22:27 Unassigned, No [facility] CONSENT/REFUSAL FOR DIAGNOSIS AND 2022-03-18 Doctor [facility] TREATMENT 13:22:27 Unassigned, No [facility] ASSIGNMENT OF BENEFITS 2022-03-18 Doctor Universit y of 13:20:20 Unassigned, No [facility] ASSIGNMENT OF BENEFITS 2022-03-18 Doctor Universit y of 13:20:20 Unassigned, No [facility] DAY SURGERY - [place] 2022-03-18 Doctor Univ ersity of 05:01:00 Unassigned, No [facility] POCT TEST 2022-03-18 [facility] o f 00:00:00 [facility] POCT TEST 2022-03-18 Sher [facility] o f 00:00:00 [facility] NOTICE OF PRIVACY PRACTICES 2022-03-15 Doctor [facility] ersity of 18:21:31 Unassigned, No [facility] NOTICE OF PRIVACY PRACTICES 2022-03-15 Doctor [facility] ersity of 18:21:31 Unassigned, No [facility] CONSENT/REFUSAL FOR DIAGNOSIS AND 2022-03-15 Doctor [facility] 18:21:05 Unassigned, No [facility] CONSENT/REFUSAL FOR DIAGNOSIS AND 2022-03-15 Doctor [facility] 18:21:05 Unassigned, No [facility] ASSIGNMENT OF BENEFITS 2022-03-15 Doctor Universit y of 18:20:50 Unassigned, No [facility] ASSIGNMENT OF BENEFITS 2022-03-15 Doctor Universit y of 18:20:50 Unassigned, No [facility] Encounters Start End Encounter Admission Attending Care Care Encounter Source Date/Time Date/Time Type Type Clinicians Facility Department ID 2022-08-05 2022-08-05 Outpatient R PAULINO-AGUILAR [facility] [id number] Univers 11:00:00 11:00:00 MIKHAIL [id number] [facility] 2022-03-26 2022-03-26 Raghu Shah [facility] [id number] Univers 00:00:00 00:00:00 Harrison Harper PRIMARY [id number] i ty of CARE [id number] Marija s GANGA [id number] Ri dical 086 Branch 2022-03-26 2022-03-26 Raghu Darby [facility] [id number] Univers 00:00:00 00:00:00 Lucy BARRIENTOS [id number] it y of MEDICINE [id number] Josh as CLINIC - [id number] [address] 2022-03-26 2022-03-26 Raghu Alatorre [facility] [id number] Univers 00:00:00 00:00:00 Tay L SPECIALTY [id number] ity of CARE [id number] [facility] AT [id number] Ri carlos VU 072 [facility] 2022-03-18 2022-03-18 Outpatient R PAULINA OLIVAREZRIEL [facility] HANG [id number] Univers 08:20:00 11:15:00 [facility] 2022-03-18 2022-03-18 Hospital [facility] [id number] Univers 08:20:00 11:15:00 Encounter Ronald L HEALTH [id number] [facility] [id number] [facility] [id number] [address] ([facility]) 2022-03-18 2022-03-18 Surgery [facility] [id number] Univers 09:45:00 10:30:00 Ronald L SPECIALTY [id number] ity of CARE [id number] [facility] AT [id number] Ri carlos VU 020 [facility] 2022-03-15 2022-03-15 Laboratory Only, Adc Test [facility] 1.2.840. [id number] Univers 13:30:00 13:45:00 Only Zaida Bunn [id number] ity of ENRIQUE [id number] [place] [id number] 2022-03-15 2022-03-15 Outpatient R [facility] [id number] Univers 13:30:00 13:30:00 [id number] y [facility] 2022-03-15 2022-03-15 Outpatient R NAVEEN [facility] [id number] Univers 13:30:00 13:30:00 ZAIDA bob [facility] 2021-12-05 2021-12-05 Outpatient R APOLLO [facility] [id number] Univers 13:30:00 13:51:58 NJUMON, ity [facility] 2021-10-24 2021-10-24 Office Roland [facility] [id number] [facility] 14:30:00 15:01:48 Visit Ml BURKS [id number] anni [facility] [id number] Marija day [facility] [id number] [address] 2021-10-24 2021-10-24 Outpatient ERICKSON_R [facility] [id number] [place] 09:32:00 09:32:00 231 [facility] 2021-10-24 2021-10-24 Outpatient ERICKSON_R [facility] [id number] - [place] 09:32:00 09:32:00 103 [facility] 2021-06-26 2021-06-26 Outpatient ERICKSON_R [facility] [id number] [place] 04:37:00 04:37:00 831 Commun i ty [facility] 2021-06-26 2021-06-26 Outpatient ERICKSON_R [facility] [id number] [place] 04:37:00 04:37:00 907 Commun i ty [facility]osp[facility] Clin[facility] 2021-06-25 2021-06-25 Outpatient ERICKSON_R [facility] [id number] [place] 11:22:00 11:22:00 830 Commun i ty [facility] 2020-11-23 2020-11-23 Nurse Nurse, [facility] [id number] 13:48:17 14:08:17 Visit Anticoalfonso MULTISPEC [id number] JENA [id number] CENTER [id number] AND ABHISHEK 054 [facility] 2020-11-20 2020-11-20 Office Chon [facility] [id number] 15:26:30 16:28:32 Visit Saad CHOE [id number] Luis Angel ZAMAN [id number] CENTER AT [id number] HORACE [address] [place] [address] 2020-11-20 2020-11-20 Orders Doctor CHONG [id number] [id number] 00:00:00 00:00:00 Only Unassigned, AJAY 350.1.13.10 [place] [facility] [id number] [id number] 2020-11-16 2020-11-16 Outpatient ERICKSON_R [facility] [id number] [place] 05:02:00 05:02:00 121 Commun i ty Hospita l [facility] 2020-11-07 2020-11-07 Outpatient ERICKSON_R [facility] [id number] [place] 02:42:00 02:42:00 112 Commun i ty Hospita l [facility] 2017-07-22 2017-07-22 Outpatient SLE SLE [id number] SLE 00:00:00 00:00:00 [id number] 2017-07-22 2017-07-22 Outpatient SLE SLE [id number] [facility] 00:00:00 00:00:00 Results Test Description Test Time Test Comments Results Result Comments Source POTASSIUM SERUM 2022-03-18 15:40:38 Test Item Value Reference Range Interpretation Comme nts K (test code = 0916821777) 3.9 mmol/L 3.5-5.0 Lab Interpretation (test code = 77347-9) [id number] 15:40:38 Test Item Value Reference Range Interpretation Comments K (test code = 7743119302) 3.9 mmol/L 3.5-5.0 Lab Interpretation (test code = Normal 85743-4) [facility] [id number] 00:00:00 Test Item Value Reference Range Interpretation Comments POCT PREG (test code = 1605) Negative On board controls acceptable with C Yes Line (test code = 3574) POCT PREG LOT # (test code = 3575) POCT PREG TEST DATE (test code = 3576) [facility] [id number] 00:00:00 Test Item Value Reference Range Interpretation Comments POCT PREG (test code = 1605) Negative On board controls acceptable with C Yes Line (test code = 3574) POCT PREG LOT # (test code = 3575) POCT PREG TEST DATE (test code = 3576) [facility]
[2022-04-06 10:51] LABS: Absolute Lymphocytes (CBC) 1.6 K/uL (0.7-4.9); Hematocrit 18.7 % (36.0-45.0); Lymphocytes % 37.5 % (15.3-44.8); MPV 7.7 fL (7.6-11.3); RBC Red Blood Cell Count 1.97 M/uL (3.86-4.86)
[2022-04-06 11:08] LABS: Potassium 3.6 mmol/L (3.5-5.1)
[2022-04-06] MEDS ORDERED: NA CHLORIDE 0.9% 500 ML ONE (12:09)
[2022-04-06] MEDS ORDERED: LORAZEPAM 1 MG TABLET ONE ×2 (12:38→14:49)
[2022-04-06 19:01] LABS: Hematocrit 24.1 % (36.0-45.0); Lymphocytes % 42.5 % (15.3-44.8); MPV 7.3 fL (7.6-11.3); RBC Red Blood Cell Count 2.66 M/uL (3.86-4.86)
--- NOTE | 2022-04-06 19:48 | ER ---
Nurse's Notes [facility] Name: Ashley Lewis Age: 26 yrs Sex: Female : 1995 Arrival Date: 04/06/2022 Time: 09:47 Bed 17 Private MD: Fede Hagen Diagnosis: Anemia in chronic kidney disease Presentation: 04/06 09:54 Chief complaint: Patient states: "I was called by my doctor and told my hemoglobin was jd3 down to 6.6.". Coronavirus screen: At this time, the client does not indicate any symptoms associated with coronavirus-19. Ebola Screen: No symptoms or risks identified at this time. Initial Sepsis Screen: Does the patient meet any 2 criteria? No. Patient's initial sepsis screen is negative. Does the patient have a suspected source of infection? No. Patient's initial sepsis screen is negative. Risk Assessment: Do you want to hurt yourself or someone else? Patient reports no desire to harm self or others. Onset of symptoms was April 03, 2022. 09:54 Method Of Arrival: Ambulatory jd3 09:54 Acuity: CASI 3 jd3 CIVIL ESTIMATOR: 09:56 LMP N/A - Irregular menses jd3 Historical: - Allergies: 09:55 No Known Allergies; jd3 - PMHx: 09:55 Perineal dialysis; Lupus erythematosus; jd3 - PSHx: 09:55 Perineal dialysis catheter; jd3 - Immunization history:: Adult Immunizations up to date, Client reports having NOT received the Covid vaccine. - Social history:: Smoking status: Patient denies any tobacco usage or history of. Screenin:35 Abuse screen: Denies threats or abuse. Denies injuries from another. Nutritional morales screening: No deficits noted. Tuberculosis screening: No symptoms or risk factors identified. Fall Risk None identified. Assessment: 12:35 General: Appears in no apparent distress. Behavior is cooperative, anxious. Pain: morales Denies pain. Cardiovascular: Reports fatigue, abnormal lab values. 19:00 Reassessment: Patient and/or family updated on plan of care and expected duration. Pain ag7 level reassessed. Patient is alert, oriented x 3, equal unlabored respirations, skin warm/dry/pink. Patient denies pain at this time. Patient states feeling better. Patient states symptoms have improved. Vital Signs: 09:56 BP 129 / 93; Pulse 76; Resp 18; Temp 98.8(TE); Pulse Ox 100% on R/A; Weight 52.16 kg jd3 (R); Height 5 ft. 2 in. (157.48 cm) (R); Pain 0/10; 12:36 BP 146 / 100; Pulse 79; Resp 17; Pulse Ox 100% on R/A; morales 13:20 BP 146 / 101; Pulse 65; Resp 17; Pulse Ox 100% ; morales 16:50 BP 145 / 92; Pulse 72; Resp 17; Pulse Ox 100% on R/A; morales 17:52 BP 158 / 113; Pulse 65; Resp 17; Pulse Ox 100% on R/A; morales 19:30 BP 145 / 99; Pulse 70; Resp 18; Temp 98.8(O); Pulse Ox 100% on R/A; Pain 0/10; ag7 09:56 Body Mass Index 21.03 (52.16 kg, 157.48 cm) jd3 ED Course: 09:47 Patient arrived in ED. as 09:48 Fede Hagen MD is Private Physician. as 09:55 Triage completed. jd3 09:56 Marycarmen Cantrell NP is PHCP. aj3 09:56 David Meza MD is Attending Physician. aj3 09:56 Arm band placed on. jd3 10:10 Jo Carrion, RN is Primary Nurse. morales 10:39 Type And Screen Sent. morales 10:39 BMP Sent. morales 10:39 CBC with Diff Sent. morales 12:35 Patient has correct armband on for positive identification. Bed in low position. morales 12:35 No provider procedures requiring assistance completed. Inserted saline lock: 20 gauge morales in right antecubital area, using aseptic technique. 14:04 PHCP role handed off by Marycarmen Cantrell NP cp 14:04 Ned Stephens PA is PHCP. cp 18:36 CBC with Diff Sent. morales 19:18 Primary Nurse role handed off by Jo Carrion, GRACIA eb 20:02 Yoselin Mcdonnell, GRACIA is Primary Nurse. ag7 20:27 IV discontinued, intact, bleeding controlled, No redness/swelling at site. Pressure ag7 dressing applied. Administered Medications: 12:37 Drug: Ativan (LORazepam) 1 mg Route: PO; morales 12:40 Follow up: Response: No adverse reaction morales 20:17 Drug: Lasix (furosemide) 20 mg Route: IVP; Site: right antecubital; ag7 20:27 Follow up: Response: No adverse reaction ag7 Medication: 12:35 VIS not applicable for this client. morales Outcome: 19:47 Discharge ordered by . cp 20:27 Discharged to home ambulatory. ag7 20:27 Condition: stable 20:27 Discharge instructions given to patient, Instructed on discharge instructions, follow up and referral plans. Demonstrated understanding of instructions, follow-up care. 20:28 Patient left the ED. ag7 Signatures: Eli García Corey, PA PA cp Davies, Jonathon, RN RN Ilene Camarena Heather, RN RN ha Glenn, Angela, RN RN ag7 Marycarmen Cantrell NP DIRECTOR OF WOMEN'S SERVICES aj3
--- NOTE | 2022-04-06 19:48 | EDPHYS ---
Physician Documentation [facility] Name: Ashley Lewis Age: 26 yrs Sex: Female : 1995 Arrival Date: 04/06/2022 Time: 09:47 Bed 17 Private MD: Fede Hagen ED Physician David Meza HPI: 04/06 12:24 This 26 yrs old Female presents to ER via Ambulatory with complaints of Abnormal Lab aj3 Results. 12:24 Onset: The symptoms/episode began/occurred acutely, 4 day(s) ago. Associated signs and aj3 symptoms: Pertinent positives: Fatigue, mild SOB and lightheaded. Patient is a 26-year-old female with PMH of ESRD on daily peritoneal dialysis here for low hemoglobin. She initially had her labs drawn on Friday and was supposed to have outpatient blood transfusion but was unable to contact anyone. She is here today to receive a blood transfusion. She denies any active bleeding or syncope.. 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 - Social history:: Smoking status: Patient denies any tobacco usage or history of. ROS: 12:24 Eyes: Negative for injury, pain, redness, and discharge, Neck: Negative for injury, aj3 pain, and swelling, Cardiovascular: Negative for chest pain, palpitations, and edema, Respiratory: Negative for shortness of breath, cough, wheezing, and pleuritic chest pain, Abdomen/GI: Negative for abdominal pain, nausea, vomiting, diarrhea, and constipation, MS/Extremity: Negative for injury and deformity, Neuro: Negative for syncope, headache, weakness, numbness, tingling, and seizure. 12:24 Constitutional: Positive for fatigue, Negative for body aches, fever, malaise. 12:24 Skin: Positive for pallor. 12:24 Neuro: Positive for Lightheadedness, Negative for headache, loss of consciousness, syncope, weakness. Exam: 12:24 Constitutional: This is a well developed, well nourished patient who is awake, alert, aj3 and in no acute distress. Head/Face: Normocephalic, atraumatic. Eyes: Pupils equal round and reactive to light, extra-ocular motions intact. Lids and lashes normal. Conjunctiva and sclera are non-icteric and not injected. Cornea within normal limits. Periorbital areas with no swelling, redness, or edema. ENT: Nares patent. No nasal discharge, no septal abnormalities noted. Tympanic membranes are normal and external auditory canals are clear. Oropharynx with no redness, swelling, or masses, exudates, or evidence of obstruction, uvula midline. Mucous membranes moist. Neck: Trachea midline and no cervical lymphadenopathy. Supple, full range of motion without nuchal rigidity. Cardiovascular: Regular rate and rhythm with a normal S1 and S2. No gallops, murmurs, or rubs. Normal PMI, no JVD. No pulse deficits. Respiratory: Lungs have equal breath sounds bilaterally, clear to auscultation and percussion. No rales, rhonchi or wheezes noted. No increased work of breathing, no retractions or nasal flaring. Abdomen/GI: Soft, non-tender, with normal bowel sounds. No distension or tympany. No guarding or rebound. No evidence of tenderness throughout. 12:24 MS/ Extremity: Pulses equal, no cyanosis. Neurovascular intact. Full, normal range of motion. Neuro: Awake and alert, GCS 15, oriented to person, place, time, and situation. Cranial nerves II-XII grossly intact. Motor strength 5/5 in all extremities. Sensory grossly intact. Cerebellar exam normal. Normal gait. 12:24 Abdomen/GI: Peritoneal dialysis catheter in place. 12:24 Skin: Appearance: Color: pale, Temperature: cool. Vital Signs: 09:56 BP 129 / 93; Pulse 76; Resp 18; Temp 98.8(TE); Pulse Ox 100% on R/A; Weight 52.16 kg jd3 (R); Height 5 ft. 2 in. (157.48 cm) (R); Pain 0/10; 12:36 BP 146 / 100; Pulse 79; Resp 17; Pulse Ox 100% on R/A; morales 13:20 BP 146 / 101; Pulse 65; Resp 17; Pulse Ox 100% ; morales 16:50 BP 145 / 92; Pulse 72; Resp 17; Pulse Ox 100% on R/A; morales 17:52 BP 158 / 113; Pulse 65; Resp 17; Pulse Ox 100% on R/A; morales 19:30 BP 145 / 99; Pulse 70; Resp 18; Temp 98.8(O); Pulse Ox 100% on R/A; Pain 0/10; ag7 09:56 Body Mass Index 21.03 (52.16 kg, 157.48 cm) jd3 MDM: 10:06 Patient medically screened. aj3 12:24 Data reviewed: vital signs, nurses notes, lab test result(s). Counseling: I had a aj3 detailed discussion with the patient and/or guardian regarding: the historical points, exam findings, and any diagnostic results supporting the discharge/admit diagnosis, lab results. ED course: Plan to transfuse 2 units of PRBC's then discharge home. This plan was discussed with patient who is agreeable. . 13:50 ED course: She is currently getting her first unit of PRBC's. Anxiety has improved aj3 after ativan. Pending 2nd unit, repeat H/H and discharge home. Will sign out to danielito URRUTIA. . 13:59 Transition of care: After a detail discussion of the patient's case, care is aj3 transferred to Ned DELANEY 04/06 10:15 Order name: CBC with Diff; Complete Time: 11:06 [facility] 04/06 19:44 Interpretation: Normal except: RBC 1.97; HGB 6.5; HCT 18.7. cp 04/06 10:15 Order name: BMP; Complete Time: 11:16 [facility] 04/06 10:15 Order name: Type And Screen [facility] 04/06 11:02 Order name: Packed RBC Leukored EDMS 04/06 10:45 Order name: Labs - recollect needed: type and screen due to no date and please write eb initials clearly; Complete Time: 11:04/06 16:48 Order name: Diet Regular; Complete Time: 16:48 04/06 18:22 Order name: CBC with Diff; Complete Time: 19:44 04/06 19:44 Interpretation: Normal except: RBC 2.66; HGB 8.3; HCT 24.1; MCV 90.7; PLT 155; MPV 7.3. cp Administered Medications: 12:37 Drug: Ativan (LORazepam) 1 mg Route: PO; morales 12:40 Follow up: Response: No adverse reaction morales 20:17 Drug: Lasix (furosemide) 20 mg Route: IVP; Site: right antecubital; ag7 20:27 Follow up: Response: No adverse reaction ag7 Disposition: 04/07 08:12 Co-signature as Attending Physician, David Meza MD I agree with the assessment and kdr plan of care. Disposition Summary: 04/06/22 19:47 Discharge Ordered Location: Home cp Problem: new cp Symptoms: have improved cp Condition: Stable cp Diagnosis - Anemia in chronic kidney disease cp Followup: cp - With: Private Physician - When: 2 - 3 days - Reason: Recheck today's complaints Discharge Instructions: - Discharge Summary Sheet cp - Anemia cp - Blood Transfusion, Adult cp - Food Basics for Chronic Kidney Disease cp - End-Stage Kidney Disease cp Forms: - Medication Reconciliation Form cp - Thank You Letter cp - Antibiotic Education cp - Prescription Opioid Use cp Signatures: Dispatcher [employer] EDMS David Meza MD MD [facility] Ned Stephens PA PA cp Prieto Singh, RN RN Ilene Camarena Heather, RN RN Yoselin Lerner RN RN ag7 Marycarmen Cantrell NP SWEET POTATO DISINTEGRATOR aj3 Corrections: (The following items were deleted from the chart) 04/06 12:03 11:54 SARS-COV-2 RT PCR+MOL.LAB.BRZ ordered. EDMS EDMS 12:03 12:00 SARS-COV-2 RT PCR+MOL.LAB.BRZ reviewed. aj3 EDMS 16:48 11:00 BB Add On+BB.LAB.BRZ ordered. EDMS EDMS
[2022-04-06] MEDS ORDERED: FUROSEMIDE 20 MG/ 2ML VIAL ONE ×2 (20:11→20:18)
[2022-04-06 20:47] VITALS: TEMP 98.8; O2SAT 100
[2022-04-06 21:01] VITALS: BP 145/99
== END 2022-04-06 20:28 | disposition home or self-care (01) ==
LOC: ER 09:47
PROC: 30233N1 Transfusion of Nonautologous Red Blood Cells into Peripheral Vein, Percutaneous Approach (ICD-10-PCS; principal; 2022-04-06)
DX: N18.6 End stage renal disease (principal); D63.1 Anemia in chronic kidney disease; Z99.2 Dependence on renal dialysis
CPT/HCPCS: 85025 ×2; 80048; 36415; 86900; 86850; 86901; 96374; 99284; 36430; J1940 ×2; P9016 ×2; J7050

== ENCOUNTER 2022-05-04 16:54 | Emergency (ER) | payer OTHER ==
[2022-05-04 17:51] LABS: Absolute Lymphocytes (CBC) 2.3 K/uL (0.7-4.9); Hematocrit 28.5 % (36.0-45.0); Lymphocytes % 37.4 % (15.3-44.8); MCV 96.4 fL (80-100); MPV 8.2 fL (7.6-11.3); RBC Red Blood Cell Count 2.96 M/uL (3.86-4.86)
--- NOTE | 2022-05-04 18:10 | RAD REPORT ---
EXAM DESCRIPTION: CT - Head Brain Wo Cont - 05/04/2022 5:57 pm CLINICAL HISTORY: Headache COMPARISON: January 2022 TECHNIQUE: Computed axial tomography of the head was obtained. IV contrast was not requested. All CT scans are performed using dose optimization technique as appropriate and may include automated exposure control or mA/KV adjustment according to patient size. FINDINGS: An intracranial bleed is not seen . The ventricles are normal in caliber. No significant hypodense areas within the brain visualized No extra-axial fluid collection is noted. Fluid within the sinuses/ mastoids is not seen. IMPRESSION: No acute intracranial abnormality is seen. If patient's symptoms persist MRI of the bra in would be recommended.
[2022-05-04 18:21] LABS: Albumin 3.5 g/dL (3.4-5.0); Bilirubin Direct 0.1 mg/dL (0-0.2); Bilirubin Total 0.4 mg/dL (0.2-1.0); Magnesium 3.2 mg/dL (1.8-2.4); Potassium 3.9 mmol/L (3.5-5.1); Protein, Total 6.6 g/dL (6.4-8.2); Troponin High Sensitivity 23.2 pg/mL (<58.9)
--- NOTE | 2022-05-04 18:41 | RAD REPORT ---
EXAM DESCRIPTION: Kieran Single View05/04/2022 6:23 pm CLINICAL HISTORY: sob COMPARISON: November 2021 FINDINGS: The lungs appear clear of acute infiltrate. The heart is normal size IMPRESSION: No acute abnormalities displayed
[2022-05-04] MEDS ORDERED: NA CHLORIDE 0.9% 250 ML ONE (18:52)
--- NOTE | 2022-05-04 19:43 | ER ---
Nurse's Notes [facility] Name: Ashley Lewis Age: 26 yrs Sex: Female : 1995 Arrival Date: 05/04/2022 Time: 16:55 Bed 14 Private MD: Fede Hagen Diagnosis: Dehydration;Orthostatic hypotension Presentation: 05/04 17:00 Chief complaint: Patient states: PATIENT REPORTS BODY ACHES, HEADACHE AND WEAKNESS FOR bh1 TWO DAYS. Coronavirus screen: Vaccine status: Patient reports being unvaccinated. difficulty breathing, fatigue, headache, muscle pain, Client presents with at least one sign or symptom that may indicate coronavirus-19. Standard/surgical mask placed on the client. Ebola Screen: Patient negative for fever greater than or equal to 101.5 degrees Fahrenheit, and additional compatible Ebola Virus Disease symptoms. Initial Sepsis Screen: Does the patient meet any 2 criteria? No. Patient's initial sepsis screen is negative. Does the patient have a suspected source of infection? No. Patient's initial sepsis screen is negative. Risk Assessment: Do you want to hurt yourself or someone else? Patient reports no desire to harm self or others. Onset of symptoms was May 02, 2022. 17:00 Method Of Arrival: Wheelchair [facility] 17:00 Acuity: CASI 3 [facility] Triage Assessment: 17:11 General: Appears in no apparent distress. ill, Behavior is calm, cooperative, 1 appropriate for age. Pain: Complains of pain in face. 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 - Post-menopause [facility] Historical: - Allergies: 17:03 NKDA; [facility] - Home Meds: 17:03 azathioprine 50 mg Oral tab once daily [Active]; bh1 17:06 prednisone 1 mg Oral tab once daily [Active]; carvedilol 25 mg oral tab 1 tab 2 times bh1 per day [Active]; ramipril 10 mg Oral cap 1 cap once daily [Active]; furosemide 40 mg Oral tab 1 tab 2 times per day [Active]; famotidine 40 mg Oral tab 1 tab 2 times per day [Active]; mirtazapine 15 mg Oral tab 1 tab once daily [Active]; nifedipine 30 mg Oral tr24 1 tab once daily [Active]; levetiracetam 250 mg oral tab 2 tabs 2 times per day [Active]; - PMHx: 17:03 Lupus erythematosus; Perineal dialysis; 1 - PSHx: 17:03 Perineal dialysis catheter; [facility] - Immunization history:: Adult Immunizations up to date. - Social history:: Smoking status: Patient denies any tobacco usage or history of. Screenin:52 Abuse screen: Denies threats or abuse. Nutritional screening: No deficits noted. vg1 Tuberculosis screening: No symptoms or risk factors identified. Fall Risk No fall in past 12 months (0 pts). No secondary diagnosis (0 pts). IV access (20 points). Ambulatory Aid- None/Bed Rest/Nurse Assist (0 pts). Gait- Normal/Bed Rest/Wheelchair (0 pts) Mental Status- Oriented to own ability (0 pts). Total Goodwin Fall Scale indicates No Risk (0-24 pts). Assessment: 17:25 General: Appears in no apparent distress. uncomfortable, Behavior is calm, cooperative. vg1 Pain: Complains of pain in head and generalize body Pain currently is 3 out of 10 on a pain scale. Pain began 2-3 days ago. Neuro: Level of Consciousness is awake, alert, obeys commands, Oriented to person, place, time, situation, Reports dizziness, headache. Cardiovascular: Patient's skin is warm and dry. Respiratory: Airway is patent Respiratory effort is even, unlabored. GI: Abdomen is flat, non-distended, Peritoneal dialysis catheter capped. Site is clean and dry. : No signs and/or symptoms were reported regarding the genitourinary system. EENT: No signs and/or symptoms were reported regarding the EENT system. Derm: Skin is intact, is healthy with good turgor, Skin is dusky. Musculoskeletal: Circulation, motion, and sensation intact. 18:29 Reassessment: Patient appears in no apparent distress at this time. No changes from vg1 previously documented assessment. Patient and/or family updated on plan of care and expected duration. Pain level reassessed. Patient is alert, oriented x 3, equal unlabored respirations, skin warm/dry/pink. 18:45 Reassessment: Patient appears in no apparent distress at this time. No changes from vg1 previously documented assessment. Patient and/or family updated on plan of care and expected duration. Pain level reassessed. Patient is alert, oriented x 3, equal unlabored respirations, skin warm/dry/pink. 19:30 Reassessment: Patient and/or family updated on plan of care and expected duration. Pain vc1 level reassessed. Patient is alert, oriented x 3, equal unlabored respirations, skin warm/dry/pink. Pt states no dizziness experienced while changing positions. Patient states feeling better. Patient states symptoms have improved. Vital Signs: 17:00 BP 87 / 57; Pulse 84; Resp 18; Temp 97.7(T); Pulse Ox 100% on R/A; Weight 52.62 kg; 1 Height 5 ft. 2 in. (157.48 cm); Pain 3/10; 17:25 BP 95 / 66; Pulse 80; Resp 16; Pulse Ox 100% on R/A; vg1 18:20 BP 94 / 63 Supine; Pulse 75; vg1 18:22 BP 96 / 68 Sitting; Pulse 78; vg1 18:24 BP 88 / 67 Standing; Pulse 90; vg1 18:53 BP 94 / 96; Pulse 72; Resp 16; Pulse Ox 100% on R/A; vg1 19:20 BP 100 / 67 Supine; Pulse 73; vc1 19:21 BP 105 / 74 Sitting; Pulse 72; vc1 19:22 BP 97 / 69 Standing; Pulse 72; vc1 17:00 Body Mass Index 21.22 (52.62 kg, 157.48 cm) [facility] ED Course: 16:55 Patient arrived in ED. am2 16:55 Fede Hagen MD is Private Physician. am2 17:03 Triage completed. 1 17:07 Bruce Whitfield NP is PHCP. pm1 17:07 Harry Streeter MD is Attending Physician. pm1 17:11 Arm band placed on left wrist. bh1 17:22 Jacquelin Vitale, GRACIA is Primary Nurse. vg1 17:40 Initial lab(s) drawn, by me, sent to lab. COVID swab sent to lab. Inserted saline lock: vg1 20 gauge in right antecubital area, using aseptic technique. Blood collected. 17:52 Patient has correct armband on for positive identification. Bed in low position. Call vg1 light in reach. Side rails up X 1. 17:52 No provider procedures requiring assistance completed. vg1 17:58 CT Head Brain wo Cont In Process Unspecified. EDMS 18:24 XRAY Chest (1 view) In Process Unspecified. EDMS 19:15 Primary Nurse role handed off by Jacquelin Vitale RN mw2 19:29 Marcia Chamorro, GRACIA is Primary Nurse. vc1 19:50 IV discontinued, intact, bleeding controlled, No redness/swelling at site. Pressure vc1 dressing applied. Administered Medications: 18:47 Drug: NS 0.9% 250 ml Route: IV; Rate: bolus; Site: right antecubital; vg1 19:05 Follow up: IV Status: Completed infusion; IV Intake: 250ml vc1 Medication: 17:52 VIS not applicable for this client. vg1 Intake: 19:05 IV: 250ml; Total: 250ml. vc1 Outcome: 19:43 Discharge ordered by MD. pm1 19:50 Discharged to home ambulatory, with friend. vc1 19:50 Condition: improved 19:50 Discharge instructions given to patient, Instructed on discharge instructions, follow up and referral plans. Demonstrated understanding of instructions, follow-up care. 19:50 Patient left the ED. vc1 Signatures: Dispatcher [employer] EDMS Bruce Whitfield, SANDRA SHAPE BRICK MOLDER pm1 Marycarmen Ramirez am2 Viki [place] mw2 Jacquelin Vitale RN RN vg1 Marcia Chamorro, RN RN vc1 Sharifa Marlow RN RN [facility] Corrections: (The following items were deleted from the chart) 17:11 17:03 Allergies: No Known Allergies; [place] [id number] 18:29 17:25 Derm: Skin is intact, is healthy with good turgor, vg1 vg1
--- NOTE | 2022-05-04 19:44 | EDPHYS ---
Physician Documentation [facility] Name: Ashley Lewis Age: 26 yrs Sex: Female : 1995 Arrival Date: 05/04/2022 Time: 16:55 Bed 14 Private MD: Fede Hagen ED Physician Harry Streeter HPI: 05/04 17:36 This 26 yrs old Female presents to ER via Wheelchair with complaints of General pm1 Weakness, Doesn't Feel Right, Near Syncope. 17:36 The patient presents to the emergency department with weakness of the entire body, pm1 generalized weakness. Onset: The symptoms/episode began/occurred 2 day(s) ago. Associated signs and symptoms: Pertinent positives: dizziness, headache, near-syncope. Severity of symptoms: in the emergency department the symptoms are unchanged. Current symptoms: headache. The patient has not recently seen a physician. 26-year-old patient presenting to the ER with complaints of generalized weakness and near syncope, dizziness with standing and walking. Patient with history of peritoneal dialysis for the past 4 years as a result of lupus causing chronic kidney disease. Patient also reports headache to left parietal area. Negative for chest pain. 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 - Post-menopause bh1 Historical: - Allergies: 17:03 NKDA; bh1 - Home Meds: 17:03 azathioprine 50 mg Oral tab once daily [Active]; bh1 17:06 prednisone 1 mg Oral tab once daily [Active]; carvedilol 25 mg oral tab 1 tab 2 times bh1 per day [Active]; ramipril 10 mg Oral cap 1 cap once daily [Active]; furosemide 40 mg Oral tab 1 tab 2 times per day [Active]; famotidine 40 mg Oral tab 1 tab 2 times per day [Active]; mirtazapine 15 mg Oral tab 1 tab once daily [Active]; nifedipine 30 mg Oral tr24 1 tab once daily [Active]; levetiracetam 250 mg oral tab 2 tabs 2 times per day [Active]; - PMHx: 17:03 Lupus erythematosus; Perineal dialysis; bh1 - PSHx: 17:03 Perineal dialysis catheter; bh1 - Immunization history:: Adult Immunizations up to date. - Social history:: Smoking status: Patient denies any tobacco usage or history of. ROS: 17:36 Constitutional: Negative for fever, chills, and weight loss. pm1 17:36 Eyes: Negative for injury, pain, redness, and discharge, ENT: Negative for injury, pain, and discharge, Cardiovascular: Negative for chest pain, palpitations, and edema. 17:36 Abdomen/GI: Negative for abdominal pain, nausea, vomiting, diarrhea, and constipation, Back: Negative for injury and pain, MS/Extremity: Negative for injury and deformity, Skin: Negative for injury, rash, and discoloration. 17:36 Respiratory: Positive for shortness of breath, Negative for cough. 17:36 Neuro: Positive for dizziness, headache, near syncope, With walking. 17:36 All other systems are negative. Exam: 17:36 Constitutional: This is a well developed, well nourished patient who is awake, alert, pm1 and in no acute distress. Head/Face: Normocephalic, atraumatic. 17:36 Back: No spinal tenderness. No costovertebral tenderness. Full range of motion. 17:36 Eyes: Exam is negative for acute changes, Conjunctiva: no acute changes. 17:36 ENT: Exam is negative for acute changes, Mouth: no acute changes, Lips: normal, moist, Oral mucosa: normal, pink and intact, moist. 17:36 Cardiovascular: Exam negative for acute changes, Rate: normal, Rhythm: regular, Pulses: no pulse deficits are appreciated, Heart sounds: normal, normal S1and S2, Edema: is not appreciated. 17:36 Respiratory: Exam negative for acute changes, respiratory distress, shortness of breath, Breath sounds: are clear throughout. 17:36 Abdomen/GI: Inspection: Peritoneal dialysis port to left side without any signs of cellulitis or tenderness, Palpation: abdomen is soft and non-tender, in all quadrants. 17:36 Skin: Exam negative for acute changes. 17:36 Neuro: Exam negative for acute changes, Orientation: is normal, Mentation: is normal, Motor: is normal, moves all fours. Vital Signs: 17:00 BP 87 / 57; Pulse 84; Resp 18; Temp 97.7(T); Pulse Ox 100% on R/A; Weight 52.62 kg; bh1 Height 5 ft. 2 in. (157.48 cm); Pain 3/10; 17:25 BP 95 / 66; Pulse 80; Resp 16; Pulse Ox 100% on R/A; vg1 18:20 BP 94 / 63 Supine; Pulse 75; vg1 18:22 BP 96 / 68 Sitting; Pulse 78; vg1 18:24 BP 88 / 67 Standing; Pulse 90; vg1 18:53 BP 94 / 96; Pulse 72; Resp 16; Pulse Ox 100% on R/A; vg1 19:20 BP 100 / 67 Supine; Pulse 73; vc1 19:21 BP 105 / 74 Sitting; Pulse 72; vc1 19:22 BP 97 / 69 Standing; Pulse 72; vc1 17:00 Body Mass Index 21.22 (52.62 kg, 157.48 cm) bh1 MDM: 17:13 Patient medically screened. pm1 18:30 ED course: Patient with orthostatic hypotension, therefore will treat patient with pm1 normal saline will initiate with 250 mL bolus sequentially until patient's orthostatic hypotension resolves. Slowly infusing due to patient's history of peritoneal dialysis. 18:53 Data reviewed: vital signs. Data interpreted: Pulse oximetry: on room air is 100 %. pm1 Interpretation: normal. 19:28 Counseling: I had a detailed discussion with the patient and/or guardian regarding: the pm1 historical points, exam findings, and any diagnostic results supporting the discharge/admit diagnosis, lab results, radiology results, the need for outpatient follow up, to return to the emergency department if symptoms worsen or persist or if there are any questions or concerns that arise at home. 19:28 ED course: Patient's orthostatics resolved. Patient without any dizziness standing up. pm1 Will discharge the patient home. 05/04 17:28 Order name: Basic Metabolic Panel; Complete Time: 18:27 pm1 05/04 17:28 Order name: CBC with Diff; Complete Time: 18:22 pm1 05/04 17:28 Order name: LFT's; Complete Time: 18:27 pm1 05/04 17:28 Order name: Magnesium; Complete Time: 18:27 pm1 05/04 17:28 Order name: NT PRO-BNP; Complete Time: 18:27 pm1 05/04 17:28 Order name: Troponin HS; Complete Time: 18:27 pm1 05/04 17:28 Order name: Orthostatic Blood Pressure; Complete Time: 18:27 pm1 05/04 17:28 Order name: XRAY Chest (1 view); Complete Time: 18:45 pm1 05/04 17:28 Order name: EKG; Complete Time: 17:29 pm1 05/04 17:28 Order name: Cardiac monitoring; Complete Time: 17:52 pm1 05/04 17:28 Order name: EKG - Nurse/Tech; Complete Time: 17:52 pm1 05/04 17:28 Order name: CT Head Brain wo Cont; Complete Time: 18:22 pm1 05/04 17:29 Order name: COVID-19 SARS RT PCR (Document "Date of Onset" if Symptomatic); Complete pm1 Time: 18:57 05/04 17:28 Order name: IV Saline Lock; Complete Time: 17:40 pm1 05/04 17:28 Order name: Labs collected and sent; Complete Time: 17:40 pm1 05/04 17:28 Order name: O2 Per Protocol; Complete Time: 17:40 pm1 05/04 17:28 Order name: O2 Sat Monitoring; Complete Time: 17:40 pm1 Administered Medications: 18:47 Drug: NS 0.9% 250 ml Route: IV; Rate: bolus; Site: right antecubital; vg1 19:05 Follow up: IV Status: Completed infusion; IV Intake: 250ml vc1 Disposition: 05/05 08:25 Co-signature as Attending Physician, Harry Streeter MD. rn Disposition Summary: 05/04/22 19:43 Discharge Ordered Location: Home pm1 Problem: new pm1 Symptoms: have improved pm1 Condition: Stable pm1 Diagnosis - Dehydration pm1 - Orthostatic hypotension pm1 Followup: pm1 - With: Emergency Department - When: As needed - Reason: Worsening of condition Followup: pm1 - With: Private Physician - When: 2 - 3 days - Reason: Recheck today's complaints, Continuance of care, Re-evaluation by your physician Discharge Instructions: - Discharge Summary Sheet pm1 - Dehydration, Adult pm1 - Orthostatic Hypotension pm1 Forms: - Medication Reconciliation Form pm1 - Thank You Letter pm1 - Antibiotic Education pm1 - Prescription Opioid Use pm1 Signatures: Dispatcher [employer] EDHarry Ruffin MD MD rn Marinas, Patrick, FRUIT DRYER FRUIT DRYER pm1 Jacquelin Vitale RN RN 1 Sharifa Marlow RN RN 1 Marcia Chamorro RN vc1 Corrections: (The following items were deleted from the chart) 05/04 17:11 17:03 Allergies: No Known Allergies; 1 1
[2022-05-04 20:11] VITALS: TEMP 97.7; O2SAT 100
[2022-05-04 20:24] VITALS: BP 97/69
--- NOTE | 2022-05-06 13:50 | EKG ---
Test Date: 2022-05-04 Test Time: 17:51:53 [employer] Faculty Member: TP MEASUREMENT RESULTS: Intervals: Rate: 77 DE: 168 QRSD: 100 QT: 398 QTc: 450 [place]: P: 34 DE: 168 QRS: 77 T: 16 INTERPRETIVE STATEMENTS: Normal sinus rhythm T wave abnormality, consider anterolateral ischemia Abnormal ECG Compared to ECG 12/09/2021 00:27:52 T-wave abnormality now present Possible ischemia now present Prolonged QT interval no longer present Electronically Signed On 05-06-22 13:47:01 CDT by Bethel Frank
== END 2022-05-04 19:50 | disposition home or self-care (01) ==
LOC: ER 16:54
DX: E86.0 Dehydration (principal); I95.1 Orthostatic hypotension; N18.6 End stage renal disease; Z99.2 Dependence on renal dialysis; Z20.822 Contact with and (suspected) exposure to COVID-19
CPT/HCPCS: 93005; 85025; 80048; 36415; 83735; 80076; 84484; 83880; 70450; 71045; U0003; J7050; 96365; 99284

== ENCOUNTER 2023-01-09 06:53 | Day surgery (SDC) | payer OTHER ==
[2023-01-09] MEDS ORDERED: SODIUM CHLORIDE 0.9% 10ML INJ IV ONE (08:00)
[2023-01-09] MEDS ORDERED: COSYNTROPIN 0.25 MG VIAL IV ONE (08:00)
[2023-01-09 08:28] VITALS: BP 97/63; TEMP 97.4; O2SAT 99; BMI 19.3
== END 2023-01-09 09:58 | disposition home or self-care (01) ==
LOC: DS 06:53
PROVIDERS: ATTEND Internal Medicine
DX: I95.9 Hypotension, unspecified (principal)
CPT/HCPCS: 36415; 82024; 82533; 96372; A4216; J0834